=== PATIENT | male | born 1940 | race Caucasian/White ===

== ENCOUNTER → 2016-04-26 | Outpatient (CLI) | payer BC ==
[2016-04-26 09:50] LABS: BASO % 0.5 %; BASO ABS # 0.04 K/uL (0-0.2); COMPLETE YES; EOS % 1.4 %; HEMATOCRIT 39.6 % (42-52); IG% 0.2 %; LYMPH % 22.8 %; LYMPH ABS # 1.93 K/uL (1.2-3.4); MEAN CELL VOLUME 96.1 fL (80-100); MEAN CORPUSCULAR HGB CONC 34.3 g/dl (32-36); MEAN PLATELET VOLUME 10.3 fL (7.4-10.4); NEUT % 67.1 %; PLATELET COUNT 225 K/uL (130-400); RED BLOOD COUNT 4.12 M/uL (4.7-6.1); WHITE BLOOD COUNT 8.45 K/uL (4.8-10.8)
[2016-04-26 09:54] LABS: ALT/SGPT 20 U/L (12-78); BLOOD UREA NITROGEN 30 mg/dl (7-18); BUN/CREATININE RATIO 21.6 (10-20); CALCIUM 8.5 mg/dl (8.5-10.1); CARBON DIOXIDE 26 mmol/L (21-32); CHLORIDE 107 mmol/L (98-107); CHOLESTEROL 112 mg/dl (0-200); GLUCOSE 167 mg/dl (70-99); POTASSIUM 3.9 mmol/L (3.5-5.1); SODIUM 143 mmol/L (136-145); TRIGLYCERIDES 59 mg/dl (0-150); VERY LOW DENSITY LIPOPROT CALC 12 mg/dl
[2016-04-26 10:04] LABS: ALB/GLOB RATIO 0.9 (0.9-2); ALKALINE PHOSPHATASE 141 U/L (45-117); AST/SGOT 13 U/L (15-37); CHOLESTEROL/HDL RATIO 2.1; HDL CHOLESTEROL 54 mg/dl; LDL CHOLESTEROL CALCULATED 46 mg/dl; THYROID STIMULATING HORMONE 0.848 uIu/ml (0.300-4.500)
[2016-04-26 10:18] LABS: ESTIMATED AVERAGE GLUCOSE 140 mg/dl; HA1C FLAG Normal (Normal)
--- NOTE | 2016-05-01 07:16 | CODING QUERY MEDICAL NECESSITY ---
SUPPORTING DIAGNOSIS NEEDED A supporting diagnosis is required for the test/procedure performed on this patient in order for us to be reimbursed by the patient's insurance. Please provide a supporting diagnosis for the following test/procedure listed below next to the test name along with your signature. *If there is no additional diagnosis for this patient that would support the following test/procedure please document that below next to the test/procedure. Test(s)/Procedure(s) that require a supporting diagnosis: * VITAMIN D 25-HYDROXY DIAGNOSIS: * DOS: 04/26/16 Provider Signature: Date: Thank you Cayla Jonas Health Information Management Once completed, please kindly fax back to [phone] For questions please call [phone]
== END | disposition home or self-care (01) ==
LOC: C.LAB1850 08:34
PROVIDERS: ATTEND Internal Medicine
DX: D64.9 Anemia, unspecified (principal); E11.49 Type 2 diabetes mellitus with other diabetic neurological complication; R20.1 Hypoesthesia of skin; E78.5 Hyperlipidemia, unspecified; E55.9 Vitamin D deficiency, unspecified; F32.9 Major depressive disorder, single episode, unspecified

== ENCOUNTER → 2016-12-16 | Outpatient (CLI) | payer BC ==
[2016-12-16 13:11] LABS: ESTIMATED AVERAGE GLUCOSE 151 mg/dl; HA1C FLAG Normal (Normal)
== END | disposition home or self-care (01) ==
LOC: C.LAB 11:18
PROVIDERS: ATTEND Nurse Practitioner Family
DX: E11.29 Type 2 diabetes mellitus with other diabetic kidney complication (principal)

== ENCOUNTER → 2017-04-11 | Outpatient (CLI) | payer BC ==
[2017-04-11 13:00] LABS: HEMOGLOBIN A1C 7.3 % (4.5-5.6)
== END | disposition home or self-care (01) ==
LOC: C.LAB1850 09:53
PROVIDERS: ATTEND Nurse Practitioner Family
DX: E11.29 Type 2 diabetes mellitus with other diabetic kidney complication (principal)

== ENCOUNTER 2020-03-22 11:47 | Inpatient (IN) ==
[2020-03-22] MEDS ORDERED: SODIUM CHLORIDE 0.9% 500 ML IV SCH (12:45)
[2020-03-22] MEDS ORDERED: SODIUM CHLORIDE 0.9% 1000ML 1,000 ML IV SCH (12:45)
[2020-03-22 12:57] LABS: Basophils # (auto) 0.02 K/uL (0-0.2); Basophils % (auto) 0.1 %; Hematocrit (blood only) 45.2 % (42-52); Hemoglobin 14.8 g/dL (14.0-18.0); Immature Granulocytes % (auto) 0.5 %; Lymphocytes # (auto) 0.59 K/uL (1.2-3.4); Lymphocytes % (auto) 2.9 %; Mean Corpuscular Hgb Conc 32.7 g/dL (32-36); Mean Corpuscular Volume 100.9 fL (80-100); Mean Platelet Volume 11.1 fL (7.4-10.4); Monocytes # (auto) 1.47 K/uL (0.11-0.59); Monocytes % (auto) 7.3 %; Neutrophils # (auto) 17.98 K/uL (1.4-6.5); Neutrophils % (auto) 89.2 %; Platelet Count 161 K/uL (130-400); RDW Coefficient of Variation 15.3 % (11.5-14.5); Red Blood Count 4.48 M/uL (4.7-6.1); White Blood Count 20.16 K/uL (4.8-10.8)
--- NOTE | 2020-03-22 13:06 | XRay Report ---
SINGLE VIEW CHEST CLINICAL HISTORY: Generalized weakness. Change in mental status. FINDINGS: 2 AP, portable, upright chest radiographs are obtained. No prior studies are available for comparison at the time of dictation. The examination is degraded by portable technique and patient ro tation. The cardiomediastinal silhouette is unremarkable noting atherosclerotic calcification of the thoracic aorta. Emphysematous change is noted. Nonspecific interstitial thickening is likely chronic . Scarring/atelectasis is seen at the lung bases. No airspace consolidation or large pleural effusion is identified. Question a nodular opacity in the right midlung. No pneumothorax is seen. The skeleta l structures are osteopenic. The bony thorax is grossly intact. IMPRESSION: 1. Emphysematous change with no acute cardiopulmonary abnormality identified. 2. Question a nodular opacity in the right midlung. Correlation with a chest CT is recommended for fu rther assessment. ACT 112: Negative or not required by law. Electronically signed by: Luther Berger M.D. 03/22/2020 1:04 PM
[2020-03-22 13:12] LABS: Alanine Aminotransferase 35 U/L (12-78); Albumin Level 2.9 gm/dl (3.4-5.0); Aspartate Aminotransferase 18 U/L (15-37); BUN Creatinine Ratio 43.9 (10-20); Blood Urea Nitrogen 65 mg/dl (7-18); Calcium 8.7 mg/dl (8.5-10.1); Carbon Dioxide 27 mmol/L (21-32); Chloride 106 mmol/L (98-107); Creatinine Clr Calc Pharmacy 31.1 ml/min; Est GFR (African American) 51.4; Est GFR (Non-African American) 44.3; Glucose 359 mg/dl (70-99); Magnesium 2.3 mg/dl (1.8-2.4); Potassium 4.6 mmol/L (3.5-5.1); Sodium 142 mmol/L (136-145)
[2020-03-22 13:18] LABS: Albumin Globulin Ratio 0.7 (0.9-2); Alkaline Phosphatase 137 U/L (45-117); Bilirubin,Total 0.7 mg/dl (0.2-1); Total Protein 6.9 gm/dl (6.4-8.2); Troponin I < 0.015 ng/ml (0-0.045)
[2020-03-22 13:40] LABS: Thyroid Stimulating Hormone 0.781 uIu/ml (0.300-4.500)
--- NOTE | 2020-03-22 13:40 | CT Scan Report ---
CT head/brain wo con CLINICAL HISTORY: 79 years-old Male with ams. Acutely altered mental status TECHNIQUE: Multiple axial CT images of the head were obtained without contrast. A dose lowering tech nique was utilized adhering to the principles of ALARA. CT DOSE: 614.27 mGy.cm COMPARISON: None. FINDINGS: No acute intracranial hemorrhage, midline shift, intracranial mass, hydrocephalus, territorial ischem ia or abnormal extra-axial collection. Age-related involutional changes with ex vacuo ventriculomegal y. Patchy white matter hypodensity suggestive chronic microvascular ischemic disease. Cerebral vascul ar calcifications. Mild encephalomalacia of the left temporal lobe. The calvarium is intact. Prior bilateral lens repair. The paranasal sinuses, mastoid air cells, and m iddle ear cavities are clear. IMPRESSION: No acute intracranial abnormality. ACT 112: Negative or not required by law. The above report was generated using voice recognition software. It may contain grammatical, syntax o r spelling errors. Electronically signed by: Moises Lemus M.D. 03/22/2020 1:39 PM
[2020-03-22] MEDS ORDERED: CEFEPIME 2,000 MG/20 ML VIAL IV STA (13:48)
[2020-03-22 13:55] LABS: Beta-Hydroxybutyrate 6.25 mg/dl (0.2-2.81)
--- NOTE | 2020-03-22 15:00 | Emergency Department Note ---
Impression & Plan AMS (altered mental status), Acute UTI (urinary tract infection), Acute dehydration, Hyperglycemia, Abnormal weight loss ED Provider Note INFORMANT: Patient, family ED PROVIDER(S): Amol Redman MD CHIEF COMPLAINT: Altered mental status PLAN: Disposition: Admitted Condition: Good MEDICAL DECISION MAKING: Patient presented emerged department due to some alteration mental status. His providers at the clinic were concerned. His family noted that he was not his normal self. He was having trouble recognizing family members. The patient was evaluated. An IV was established. He had a significant leukocytosis and d ehydration on chemistry panel. Urinalysis was obtained was very concerning for infection. Chest x-ray did reveal findings concerning for mass versus infiltrate. Patient was cultured. He was given IV cefepime and hydrated. He underwent CT imaging of the head and chest. Findings in the chest are concerning for mass. No acute findings noted in the head. I did discuss the possibility with cancer with the patient and his family as the patient has had a significant weight loss recently. The patient was being difficult about staying in the hospital. The patient's daughter, Sowmya who is power of assistant city attorney did talk with the patient to convince him to stay and she is in agreement with treatment as he is confused. Triage Nursing notes reviewed and agree them. Additional history obtained from family Prior medical records reviewed. EMR review indicates the patient has had a 15 pound weight loss in the last 10 months. Vital Signs: reviewed and remarkable for borderline tachycardia Differential diagnosis: Infection, hypoglycemia, electrolyte abnormalities, overdose, toxicologic, cardiac sources, intracerebral event, neurologic, trauma, as well as other pathologies. Diagnostics interpreted by me: ECG: Twelve-lead ECG reveals a normal sinus rhythm at 92 bpm. Septal Q waves. No ST elevation or depression. No PACs or PVCs. Normal axis. Cardiac Monitoring: Cardiac monitoring ordered by me: The patient was placed on continuous cardiac monitoring and observed. It revealed a normal sinus rhythm at 98 beats per minute without ectopy or evidence of dysrhythmia. Imaging studies: Chest x-ray concerning for a right middle lobe mass versus infiltrate. CT recommended. Head CT: A noncontrast CT scan of the head was performed and was negative for tumor, fracture, intracranial hemorrhage, or other acute pathology. Consultation(s): Admit to hospitalist service, Dr. Terrell Magaña HPI: The patient is a 79 year old male who presents to the Emergency Room from the diabetes clinic due to altered mental status. The patient was at an appointment and seemed to be confused per the staff. EMS was summoned. Initially the patient was refusing. The patient was then brought to the ER after family was contacted. He denies any physical complaints or recent illnesses. He is not been checking his blood sugar. He is oriented only to person and place. He denies feeling ill. Pt denies LOC, headache, fevers, chills, diaphoresis, visual changes, neck pain, chest pain, breathing difficulties, nausea, vomiting, abdominal pain, back pain, melena, hematochezia, urinary symptoms, numbness, weakness, lymphadenopathy, rash, or other complaints. ROS: See above HPI for pertinent positives & negatives. A total of 10 systems reviewed and were otherwise negative. PAST MEDICAL HISTORY:See Below , diabetes PAST SURGICAL HISTORY:See Below, FAMILY HISTORY:See Below SOCIAL HISTORY:See Below, lives alone HOME MEDICATIONS:See Below ALLERGIES:See Below VITALS:See Below PHYSICAL EXAMINATION: GENERAL: Awake, alert, gaunt-appearing, in no distress HENT: Normocephalic, atraumatic. Oropharynx unremarkable. EYES: Normal conjunctiva. Sclera non-icteric. NECK: Inspection normal. Non-tender. Supple. No nuchal rigidity. FROM. No masses. RESPIRATORY: Clear to auscultation. No wheezes. No rales. Normal respiratory e ffort. CARDIAC: Normal rate. Normal rhythm. No murmurs. No rubs. Extremities warm and well perfused. Pulses equal. No JVD. GI: Soft, non-distended. No tenderness to palpation. No rebound or guarding. No masses. RECTAL: Deferred. MUSCULOSKELETAL: Atraumatic. Generalized muscular atrophy. Chest examination reveals no tenderness. The back is symmetrical on inspection without obvious abnormality. There is no CVA tenderness to palpation. No joint edema. LOWER EXTREMITIES: Calves are equal size bilaterally and non-tender. No edema. No discoloration. NEURO: Oriented to person and place. Mildly altered sensorium. No focal sensory or motor deficits noted. SKIN: No rash or jaundice noted. Amol Redman MD Past Med/Surg History Medical History (Updated 03/22/20 @ 15:59 by Terrell Magaña MD) Diabetes type 2, uncontrolled Surgical History S/P cataract surgery Family History Other No significant family history Social History Smoking Status: Current every day smoker Hx Alcohol Use: No Hx Substance Use: No Preferred Language: Tongan Communication Ability: Effective Visual Impairment: No Limitations Hearing Ability: Normal marital status: / current occupational status: employed Feels Safe at Home: Yes Seatbelt Use: always Allergies Allergies Allergy/AdvReac Type Severity Reaction Status Date / Time No Known Allergies Allergy Verified 03/22/20 14:39 Home Meds Home Medications Medication Instructions Recorded Confirmed insulin glargine [Lantus Solostar See Rx Instructions .ROUTE .COMPLEX 03/22/20 03/22/20 U-100 Insulin] Previous Rx's Medication Instructions Recorded aspirin 81 mg tablet,delayed 81 mg PO DAILY #30 tab 12/08/18 release cholecalciferol (vitamin D3) 25 1,000 units PO DAILY #30 cap 12/08/18 mcg (1,000 unit) capsule insulin aspart U-100 100 unit/mL 3 units SQ .COMPLEX #15 ml 12/14/18 (3 mL) subcutaneous pen insulin aspart U-100 100 unit/mL 30 units SQ DAILY 90 Days #27 ml 07/02/19 (3 mL) subcutaneous pen simvastatin 40 mg tablet 40 mg PO QPM #90 tab 08/22/19 lisinopril 10 1 tab PO DAILY #90 tab 11/12/19 mg-hydrochlorothiazide 12.5 mg tablet Results & Data (ED) Vital Signs Vital Signs - 24 hr 03/22/20 11:52 03/22/20 12:01 03/22/20 12:22 Pulse Rate 93 H 99 H 94 H Pulse Rate from SpO2 Sensor Respiratory Rate 12 20 13 Blood Pressure 106/76 106/76 Blood Pressure Mean 91 86 Blood Pressure Position Lying Pulse Oximetry 97 Oxygen Delivery Method Room Air Sepsis Recent Fever Within 48 Hours No Sepsis New/Unexplained Change in Mental Status No Sepsis Action Taken by Nursing No Action Required 03/22/20 12:30 03/22/20 12:40 03/22/20 12:50 Pulse Rate 95 H 89 91 H Pulse Rate from SpO2 Sensor 92 H Respiratory Rate 12 17 11 L Blood Pressure Blood Pressure Mean Blood Pressure Position Pulse Oximetry 95 Oxygen Delivery Method Sepsis Recent Fever Within 48 Hours Sepsis New/Unexplained Change in Mental Status Sepsis Action Taken by Nursing 03/22/20 13:00 03/22/20 13:10 03/22/20 13:39 Pulse Rate 90 86 84 Pulse Rate from SpO2 Sensor 90 86 Respiratory Rate 12 15 10 L Blood Pressure 138/77 Blood Pressure Mean 91 Blood Pressure Position Pulse Oximetry 95 96 Oxygen Delivery Method Sepsis Recent Fever Within 48 Hours Sepsis New/Unexplained Change in Mental Status Sepsis Action Taken by Nursing 03/22/20 13:40 03/22/20 13:50 03/22/20 14:00 Pulse Rate 81 82 81 Pulse Rate from SpO2 Sensor 82 83 82 Respiratory Rate 14 13 20 Blood Pressure Blood Pressure Mean Blood Pressure Position Pulse Oximetry 97 96 97 Oxygen Delivery Method Sepsis Recent Fever Within 48 Hours Sepsis New/Unexplained Change in Mental Status Sepsis Action Taken by Nursing 03/22/20 14:10 03/22/20 14:20 03/22/20 14:30 Pulse Rate 84 80 83 Pulse Rate from SpO2 Sensor 83 80 83 Respiratory Rate 20 13 11 L Blood Pressure Blood Pressure Mean Blood Pressure Position Pulse Oximetry 95 98 96 Oxygen Delivery Method Sepsis Recent Fever Within 48 Hours Sepsis New/Unexplained Change in Mental Status Sepsis Action Taken by Nursing 03/22/20 14:40 03/22/20 14:50 03/22/20 15:00 Pulse Rate 83 83 80 Pulse Rate from SpO2 Sensor 79 83 80 Respiratory Rate 11 L 10 L 22 Blood Pressure Blood Pressure Mean Blood Pressure Position Pulse Oximetry 96 94 96 Oxygen Delivery Method Sepsis Recent Fever Within 48 Hours Sepsis New/Unexplained Change in Mental Status Sepsis Action Taken by Nursing 03/22/20 15:10 03/22/20 15:20 03/22/20 15:30 Pulse Rate 95 H 87 86 Pulse Rate from SpO2 Sensor 87 Respiratory Rate 10 L 15 13 Blood Pressure Blood Pressure Mean 72 Blood Pressure Position Pulse Oximetry 93 Oxygen Delivery Method Sepsis Recent Fever Within 48 Hours Sepsis New/Unexplained Change in Mental Status Sepsis Action Taken by Nursing 03/22/20 15:31 03/22/20 15:36 03/22/20 17:01 Pulse Rate 86 102 H Pulse Rate from SpO2 Sensor Respiratory Rate 12 7 L 19 Blood Pressure 103/67 133/84 Blood Pressure Mean 69 119 Blood Pressure Position Pulse Oximetry Oxygen Delivery Method Sepsis Recent Fever Within 48 Hours Sepsis New/Unexplained Change in Mental Status Sepsis Action Taken by Nursing Laboratory Data Result diagrams: 03/22/20 12:00 03/22/20 12:00 Lab Results 03/22/20 03/22/20 03/22/20 Range/Units 12:00 12:00 15:16 WBC 20.16 H (4.8-10.8) K/uL RBC 4.48 L (4.7-6.1) M/uL Hgb 14.8 (14.0-18.0) g/dL Hct 45.2 (42-52) % MCV 100.9 H (80-100) fL MCH 33.0 (25-34) pg MCHC 32.7 (32-36) g/dL RDW Std Deviation 56.0 H (36.4-46.3) fL RDW Coeff of Helio 15.3 H (11.5-14.5) % Plt Count 161 (130-400) K/uL MPV 11.1 H (7.4-10.4) fL Immature Gran % (Auto) 0.5 % Neut % (Auto) 89.2 % Lymph % (Auto) 2.9 % [place] % (Auto) 7.3 % Eos % (Auto) 0.0 % Baso % (Auto) 0.1 % Neut # (Auto) 17.98 H (1.4-6.5) K/uL Lymph # (Auto) 0.59 L (1.2-3.4) K/uL [place] # (Auto) 1.47 H (0.11-0.59) K/uL Eos # (Auto) 0.00 (0-0.5) K/uL Baso # (Auto) 0.02 (0-0.2) K/uL Immature Gran # (Auto) 0.10 H (0.00-0.02) K/uL Sodium 142 (136-145) mmol/L Potassium 4.6 (3.5-5.1) mmol/L Chloride 106 (98-107) mmol/L Carbon Dioxide 27 (21-32) mmol/L Anion Gap 9.0 (3-11) BUN 65 H (7-18) mg/dl Creatinine 1.49 H (0.6-1.4) mg/dl Est Cr Clr Drug Dosing 31.1 ml/min Est GFR ( Amer) 51.4 Est GFR (Non-Af Amer) 44.3 BUN/Creatinine Ratio 43.9 H (10-20) Glucose 359 H* (70-99) mg/dl Calcium 8.7 (8.5-10.1) mg/dl Magnesium 2.3 (1.8-2.4) mg/dl Total Bilirubin 0.7 (0.2-1) mg/dl AST 18 (15-37) U/L ALT 35 (12-78) U/L Alkaline Phosphatase 137 H (45-117) U/L Troponin I < 0.015 (0-0.045) ng/ml Total Protein 6.9 (6.4-8.2) gm/dl Albumin 2.9 L (3.4-5.0) gm/dl Globulin 4.0 (2.5-4.0) gm/dl Albumin/Globulin Ratio 0.7 L (0.9-2) Beta-Hydroxybutyric Acd 6.25 H (0.2-2.81) mg/dl TSH 0.781 (0.300-4.500) uIu/ml Urine Color Dark Yellow Urine Appearance Cloudy A (Clear) Urine pH 5.0 (4.5-7.5) Ur Specific [place] 1.028 (1.000-1.030) Urine Protein 1+ H (Negative) Urine Glucose (UA) 3+ H (Negative) Urine Ketones Negative (Negative) Urine Blood 2+ H (Negative) Urine Nitrite Positive A (Negative) Urine Bilirubin Negative (Negative) Urine Urobilinogen Negative (Negative) Ur Leukocyte Esterase 1+ H (Negative) Urine WBC (Auto) >30 H (0-5) /hpf Urine RBC (Auto) 0-4 (0-4) /hpf U Hyaline Cast (Auto) 5-10 H (0-5) /lpf U Epithel Cells (Auto) 5-10 H (0-5) /lpf Urine Bacteria (Auto) 4+ H (Negative) SARS-CoV-2 Ag (Rapid) (Negative) 03/22/20 Range/Units Unknown WBC (4.8-10.8) K/uL RBC (4.7-6.1) M/uL Hgb (14.0-18.0) g/dL Hct (42-52) % MCV (80-100) fL MCH (25-34) pg MCHC (32-36) g/dL RDW Std Deviation (36.4-46.3) fL RDW Coeff of Helio (11.5-14.5) % Plt Count (130-400) K/uL MPV (7.4-10.4) fL Immature Gran % (Auto) % Neut % (Auto) % Lymph % (Auto) % [place] % (Auto) % Eos % (Auto) % Baso % (Auto) % Neut # (Auto) (1.4-6.5) K/uL Lymph # (Auto) (1.2-3.4) K/uL [place] # (Auto) (0.11-0.59) K/uL Eos # (Auto) (0-0.5) K/uL Baso # (Auto) (0-0.2) K/uL Immature Gran # (Auto) (0.00-0.02) K/uL Sodium (136-145) mmol/L Potassium (3.5-5.1) mmol/L Chloride (98-107) mmol/L Carbon Dioxide (21-32) mmol/L Anion Gap (3-11) BUN (7-18) mg/dl Creatinine (0.6-1.4) mg/dl Est Cr Clr Drug Dosing ml/min Est GFR ( Amer) Est GFR (Non-Af Amer) BUN/Creatinine Ratio (10-20) Glucose (70-99) mg/dl Calcium (8.5-10.1) mg/dl Magnesium (1.8-2.4) mg/dl Total Bilirubin (0.2-1) mg/dl AST (15-37) U/L ALT (12-78) U/L Alkaline Phosphatase (45-117) U/L Troponin I (0-0.045) ng/ml Total Protein (6.4-8.2) gm/dl Albumin (3.4-5.0) gm/dl Globulin (2.5-4.0) gm/dl Albumin/Globulin Ratio (0.9-2) Beta-Hydroxybutyric Acd (0.2-2.81) mg/dl TSH (0.300-4.500) uIu/ml Urine Color Urine Appearance (Clear) Urine pH (4.5-7.5) Ur Specific [place] (1.000-1.030) Urine Protein (Negative) Urine Glucose (UA) (Negative) Urine Ketones (Negative) Urine Blood (Negative) Urine Nitrite (Negative) Urine Bilirubin (Negative) Urine Urobilinogen (Negative) Ur Leukocyte Esterase (Negative) Urine WBC (Auto) (0-5) /hpf Urine RBC (Auto) (0-4) /hpf U Hyaline Cast (Auto) (0-5) /lpf U Epithel Cells (Auto) (0-5) /lpf Urine Bacteria (Auto) (Negative) SARS-CoV-2 Ag (Rapid) Negative (Negative) Administered Medications Sodium Chloride (Nss 1000ml) 1,000 mls @ 125 mls/hr IV .Q8H ABNER Stop: 03/22/20 20:44 Last Admin: 03/22/20 12:54 Dose: 125 mls/hr Documented by: [id number] Discontinued Medications Sodium Chloride (Nss) 500 mls @ 999 mls/hr IV .Q31M ABNER Stop: 03/22/20 13:15 Last Infusion: 03/22/20 14:21 Dose: 0 mls/hr Documented by: [id number] Admin: 03/22/20 12:54 Dose: 999 mls/hr Documented by: [id number] Cefepime HCl (Maxipime) 2,000 mg in 20 mls @ 5 mls/min IV NOW STA; Protocol Stop: 03/22/20 13:51 Last Admin: 03/22/20 14:13 Dose: 5 mls/min Documented by: [id number] Ceftriaxone Sodium (Rocephin) 1,000 mg in 50 mls @ 100 mls/hr IV ONE STA Stop: 03/22/20 17:30 Last Admin: 03/22/20 17:21 Dose: 100 mls/hr Documented by: [id number] Discharge Plan Visit Data Chief Complaint: Altered Mental Status ED Provider: Amol Redman Discharge Problem: AMS (altered mental status), Acute UTI (urinary tract infection), Acute d ehydration, Hyperglycemia, Abnormal weight loss Forms Stand Alone Forms: [employer] Prescriptions Prescriptions: No Action aspirin [Adult Aspirin Regimen] 81 mg tablet,delayed release (DR/EC) 81 mg PO DAILY Qty: 30 RF: 2 cholecalciferol (vitamin D3) 1,000 unit capsule 1,000 units PO DAILY Qty: 30 RF: 0 Novolog Flexpen U-100 Insulin 100 unit/mL (3 mL) insulin pen 3 units SQ .COMPLEX Qty: 15 RF: 0 insulin aspart U-100 [Novolog Flexpen U-100 Insulin] 100 unit/mL (3 mL) insulin pen 30 units SQ DAILY 90 Days Qty: 27 RF: 3 simvastatin 40 mg tablet 40 mg PO QPM Qty: 90 RF: 3 lisinopril-hydrochlorothiazide 10-12.5 mg tablet 1 tab PO DAILY Qty: 90 RF: 3 Lantus Solostar U-100 Insulin 100 unit/mL (3 mL) insulin pen See Rx Instructions .ROUTE .COMPLEX RF: 0
--- NOTE | 2020-03-22 15:00 | Electrocardiogram Report ---
Test Reason : Blood Pressure : / mmHG Vent. Rate : 092 BPM Atrial Rate : 092 BPM P-R Int : 186 ms QRS Dur : 084 ms QT Int : 374 ms P-R-T Axes : 087 089 086 degrees QTc Int : 462 ms Poor data quality, interpretation may be adversely affected Normal sinus rhythm Nonspecific ST abnormality Abnormal ECG No previous ECGs available Confirmed by Ervin Gifford [id number] on 03/22/2020 2:59:47 PM Referred By: REFERRED SELF Confirmed By:Enrique Gifford
--- NOTE | 2020-03-22 15:21 | History & Physical Report ---
Date of Service March 22, 2020 Assessment & Plan (1) AMS (altered mental status): Altered mentation- May be secondary to sepsis due to UTI. May be delirium on top of dementia, as patient has had a history of forgetfulness CT of head was negative for acute findings Follow improvement as we treat UTI Present on Admission?: Yes (2) Acute UTI (urinary tract infection): Follow urine culture and sensitivity Empiric ceftriaxone 1 g IV daily Present on Admission?: Yes (3) Acute kidney injury: Creatinine 1.49 upon admission, with baseline 1.20. IV fluids as noted above. Recheck BMP in AM. Present on Admission?: Yes (4) Acute dehydration: Received 500 cc normal saline in ED. Continue rehydration with IV fluids, normal saline at 80 mils per hour Hold lisinopril/HCTZ Present on Admission?: Yes (5) Hyperglycemia: Glucose 359 upon admission. 10 units subcu at bedtime Hold Metformin Placed on Accu-Cheks before meals and at bedtime with NovoLog coverage per scale continue Lantus insulin Present on Admission?: Yes (6) Abnormal weight loss: CT of chest to be ordered to follow-up right mid lung nodule seen on chest x-ray Present on Admission?: Yes (7) Diabetes type 2, uncontrolled: Check a hemoglobin A1c, otherwise as noted above Present on Admission?: Yes (8) Tobacco use: cessation counseling Present on Admission?: Yes (9) Forgetfulness: History of Present Illness Chief Complaint: The patient presents to the emergency department due to altered mental status. Primary Care Provider: NO PCP The patient is a 71-year-old male with a past medical history including uncontrolled diabetes mellitus type 2, anemia, depression, diabetes mellitus with neurologic manifestations, diabetes mellitus with renal manifestations, diabetic retinopathy, dyslipidemia, hypertension, memory loss, nicotine dependence, vascular dementia and vitamin D deficiency. The patient had been to an office appointment, was found to be confused by staff there, EMS was called, and then brought the patient to the ER after family was contacted. The patient himself does not have any complaints as far as why he is in the hospital. Family notes that the patient had gotten lost last week. Allergies Allergy/AdvReac Type Severity Reaction Status Date / Time No Known Allergies Allergy Verified 03/22/20 14:39 Home Medications Medication Instructions Recorded Confirmed Type aspirin 81 mg tablet,delayed 81 mg PO DAILY #30 tab 12/08/18 03/22/20 Rx release cholecalciferol (vitamin D3) 25 1,000 units PO DAILY #30 cap 12/08/18 03/22/20 Rx mcg (1,000 unit) capsule insulin aspart U-100 100 unit/mL 3 units SQ .COMPLEX #15 ml 12/14/18 03/22/20 Rx (3 mL) subcutaneous pen insulin aspart U-100 100 unit/mL 30 units SQ DAILY 90 Days #27 ml 07/02/19 03/22/20 Rx (3 mL) subcutaneous pen simvastatin 40 mg tablet 40 mg PO QPM #90 tab 08/22/19 03/22/20 Rx lisinopril 10 1 tab PO DAILY #90 tab 11/12/19 03/22/20 Rx mg-hydrochlorothiazide 12.5 mg tablet insulin glargine [Lantus Solostar See Rx Instructions .ROUTE .COMPLEX 03/22/20 03/22/20 History U-100 Insulin] Past Med/Surg History Medical History (Updated 03/22/20 @ 15:59 by Terrell Magaña MD) Diabetes type 2, uncontrolled Surgical History S/P cataract surgery Family History Other No significant family history Social History Smoking Status: Current every day smoker Hx Alcohol Use: No Hx Substance Use: No Preferred Language: Congolese Communication Ability: Effective Visual Impairment: No Limitations Hearing Ability: Normal marital status: / current occupational status: employed Feels Safe at Home: Yes Seatbelt Use: always Review of Systems Review of Systems: Unobtainable due to cognitive status Physical Exam Physical Exam: The patient is awake, alert and oriented 2, looks emaciated, normocephalic and atraumatic, lying in bed and in no acute distress. HEENT--PERRL, EOMI, mucous membranes and oropharynx dry. Neck--supple. No JVD. No bruits. Thyroid normal, trachea midline, no adenopathy. Heart--normal S1 and S2. No murmurs, rubs or gallops. Lungs--clear bilaterally but diminished, no respiratory distress, no accessory muscle use. Abdomen--normal bowel sounds and soft. Nontender. Nondistended, no hernias or masses, no organomegaly. Extremities--no cyanosis or clubbing. No edema. Dermatologic--skin is dry. Neurologic--cranial nerves II through XII grossly intact. Rheumatologic--normal range of motion. Psychiatric--normal affect. Results & Data Results & Data ([facility]) Vital Signs (Past 12 Hours) Vital Signs Pulse Resp BP Pulse Ox 03/22/20 12:50 91 H 11 L 95 03/22/20 12:40 89 17 03/22/20 12:30 95 H 12 03/22/20 12:22 94 H 13 03/22/20 12:01 99 H 20 106/76 97 03/22/20 11:52 93 H 12 106/76 Laboratory Results Laboratory Results WBC 20.16 K/uL (4.8-10.8) H 03/22/20 12:00 RBC 4.48 M/uL (4.7-6.1) L 03/22/20 12:00 Hgb 14.8 g/dL (14.0-18.0) 03/22/20 12:00 Hct 45.2 % (42-52) 03/22/20 12:00 MCV 100.9 fL (80-100) H 03/22/20 12:00 MCH 33.0 pg (25-34) 03/22/20 12:00 MCHC 32.7 g/dL (32-36) 03/22/20 12:00 RDW Std Deviation 56.0 fL (36.4-46.3) H 03/22/20 12:00 RDW Coeff of Helio 15.3 % (11.5-14.5) H 03/22/20 12:00 Plt Count 161 K/uL (130-400) 03/22/20 12:00 MPV 11.1 fL (7.4-10.4) H 03/22/20 12:00 Immature Gran % (Auto) 0.5 % 03/22/20 12:00 Neut % (Auto) 89.2 % 03/22/20 12:00 Lymph % (Auto) 2.9 % 03/22/20 12:00 Ida % (Auto) 7.3 % 03/22/20 12:00 Eos % (Auto) 0.0 % 03/22/20 12:00 Baso % (Auto) 0.1 % 03/22/20 12:00 Neut # (Auto) 17.98 K/uL (1.4-6.5) H 03/22/20 12:00 Lymph # (Auto) 0.59 K/uL (1.2-3.4) L 03/22/20 12:00 Ida # (Auto) 1.47 K/uL (0.11-0.59) H 03/22/20 12:00 Eos # (Auto) 0.00 K/uL (0-0.5) 03/22/20 12:00 Baso # (Auto) 0.02 K/uL (0-0.2) 03/22/20 12:00 Immature Gran # (Auto) 0.10 K/uL (0.00-0.02) H 03/22/20 12:00 Sodium 142 mmol/L (136-145) 03/22/20 12:00 Potassium 4.6 mmol/L (3.5-5.1) 03/22/20 12:00 Chloride 106 mmol/L (98-107) 03/22/20 12:00 Carbon Dioxide 27 mmol/L (21-32) 03/22/20 12:00 Anion Gap 9.0 (3-11) 03/22/20 12:00 BUN 65 mg/dl (7-18) H 03/22/20 12:00 Creatinine 1.49 mg/dl (0.6-1.4) H 03/22/20 12:00 Est Cr Clr Drug Dosing 31.1 ml/min 03/22/20 12:00 Est GFR ( Amer) 51.4 03/22/20 12:00 Est GFR (Non-Af Amer) 44.3 03/22/20 12:00 BUN/Creatinine Ratio 43.9 (10-20) H 03/22/20 12:00 Glucose 359 mg/dl (70-99) H* 03/22/20 12:00 Calcium 8.7 mg/dl (8.5-10.1) 03/22/20 12:00 Magnesium 2.3 mg/dl (1.8-2.4) 03/22/20 12:00 Total Bilirubin 0.7 mg/dl (0.2-1) 03/22/20 12:00 AST 18 U/L (15-37) 03/22/20 12:00 ALT 35 U/L (12-78) 03/22/20 12:00 Alkaline Phosphatase 137 U/L (45-117) H 03/22/20 12:00 Troponin I < 0.015 ng/ml (0-0.045) 03/22/20 12:00 Total Protein 6.9 gm/dl (6.4-8.2) 03/22/20 12:00 Albumin 2.9 gm/dl (3.4-5.0) L 03/22/20 12:00 Globulin 4.0 gm/dl (2.5-4.0) 03/22/20 12:00 Albumin/Globulin Ratio 0.7 (0.9-2) L 03/22/20 12:00 Beta-Hydroxybutyric Acd 6.25 mg/dl (0.2-2.81) H 03/22/20 12:00 TSH 0.781 uIu/ml (0.300-4.500) 03/22/20 12:00 Urine Color Dark Yellow 03/22/20 15:16 Urine Appearance Cloudy (Clear) A 03/22/20 15:16 Urine pH 5.0 (4.5-7.5) 03/22/20 15:16 Ur Specific [place] 1.028 (1.000-1.030) 03/22/20 15:16 Urine Protein 1+ (Negative) H 03/22/20 15:16 Urine Glucose (UA) 3+ (Negative) H 03/22/20 15:16 Urine Ketones Negative (Negative) 03/22/20 15:16 Urine Blood 2+ (Negative) H 03/22/20 15:16 Urine Nitrite Positive (Negative) A 03/22/20 15:16 Urine Bilirubin Negative (Negative) 03/22/20 15:16 Urine Urobilinogen Negative (Negative) 03/22/20 15:16 Ur Leukocyte Esterase 1+ (Negative) H 03/22/20 15:16 Urine WBC (Auto) >30 /hpf (0-5) H 03/22/20 15:16 Urine RBC (Auto) 0-4 /hpf (0-4) 03/22/20 15:16 U Hyaline Cast (Auto) 5-10 /lpf (0-5) H 03/22/20 15:16 U Epithel Cells (Auto) 5-10 /lpf (0-5) H 03/22/20 15:16 Urine Bacteria (Auto) 4+ (Negative) H 03/22/20 15:16 SARS-CoV-2 Ag (Rapid) Negative (Negative) 03/22/20 Unknown Diagnostic Findings [facility], [id number] XRay Report Patient: MELONY MORENO EAdmit Date: 03/22/20MR#: [id number]: [address] RDAcct ID:[id number]: Date: 1940[facility] Zip: [place] [id number]: 79Location: EDSex: MRoom/Bed:Att Phy:Diagnosis: AMSPri Phy: PCP,NOService Date: 03/22/20Fa Phy:Interpreting Phy: Luther Berger MDAdmit Phy: Ordering Phy: Amol Redman MD cc: ~ SINGLE VIEW CHEST CLINICAL HISTORY: Generalized weakness. Change in mental status. FINDINGS: 2 AP, portable, upright chest radiographs are obtained. No prior studies are available for comparison at the time of dictation. The examination is degraded by portable technique and patient rotation. The cardiomediastinal silhouette is unremarkable noting atherosclerotic calcification of the thoracic aorta. Emphysematous change is noted. Nonspecific interstitial thickening is likely chronic. Scarring/atelectasis is seen at the lung bases. No airspace consolidation or large pleural effusion is identified. Question a nodular opacity in the right midlung. No pneumothorax is seen. The skeletal structures are osteopenic. The bony thorax is grossly intact. IMPRESSION: 1. Emphysematous change with no acute cardiopulmonary abnormality identified. 2. Question a nodular opacity in the right midlung. Correlation with a chest CT is recommended for further assessment. ACT 112: Negative or not required by law. Electronically signed by: Luther Berger M.D. 03/22/2020 1:04 PM Dictated: 03/22/20 1302Transcribed: 03/22/20 1302 [facility], [phone] CT Scan Report Patient: MELONY MORENO Date: 03/22/20MR#: [id number]: [address] RDAcct ID:[id number]: [facility] Zip[facility] [place], [place] [address]Pbk: [birth year]Location: EDSex: MRoom/Bed:Att Phy:Diagnosis: AMSPri Phy: PCP,NOService Date: 03/22/20Fam Phy:Interpreting Phy: Rodrick LemusAdmit Phy: Ordering Phy: Amol Redman MD cc: ~ CT head/brain wo con CLINICAL HISTORY: 79 years-old Male with ams. Acutely altered mental status TECHNIQUE: Multiple axial CT images of the head were obtained without contrast. A dose lowering technique was utilized adhering to the principles of ALARA. CT DOSE: 614.27 mGy.cm COMPARISON: None. FINDINGS: No acute intracranial hemorrhage, midline shift, intracranial mass, hydrocephalus, territorial ischemia or abnormal extra-axial collection. Age-rela hali involutional changes with ex vacuo ventriculomegaly. Patchy white matter hypodensity suggestive chronic microvascular ischemic disease. Cerebral vascular calcifications. Mild encephalomalacia of the left temporal lobe. The calvarium is intact. Prior bilateral lens repair. The paranasal sinuses, mastoid air cells, and middle ear cavities are clear. IMPRESSION: No acute intracranial abnormality. ACT 112: Negative or not required by law. The above report was generated using voice recognition software. It may contain grammatical, syntax or spelling errors. Electronically signed by: Moises Lemus M.D. 03/22/2020 1:39 PM Dictated: 03/22/20 1336Transcribed: 03/22/20 133 Code Status & VTE Plan Code Status Full code VTE Prophylaxis Plan VTE Prophylaxis will be ordered: Yes PG Care Time/CCT Total # of Minutes Spent Total Time Spent with Patient: Total time spent is greater than 50% in coordination of care (as documented) at patient's floor/unit and/or counseling patient: Coding Level of Care Code 31706 Initial Inpt Care Lvl 3 Diagnoses AMS (altered mental status) R41.82 Acute UTI (urinary tract infection) N39.0 Acute kidney injury N17.9 Acute dehydration E86.0 Hyperglycemia R73.9 Abnormal weight loss R63.4 Diabetes type 2, uncontrolled E11.65 Tobacco use Z72.0 Forgetfulness R68.89
[2020-03-22 15:27] LABS: Appearance Urine Cloudy (Clear); Bacteria Urine Automated 4+ (Negative); Bilirubin Urine Negative (Negative); Blood Urine 2+ (Negative); Color Urine Dark Yellow; Glucose Urine UA 3+ (Negative); Ketones Urine Negative (Negative); Leukocyte Esterase Urine 1+ (Negative); Nitrite Urine Positive (Negative); Protein Urine 1+ (Negative); RBC Urine Automated 0-4 /hpf (0-4); Specific Gravity Urine 1.028 (1.000-1.030); Urobilinogen Urine Negative (Negative); WBC Urine Automated >30 /hpf (0-5)
--- NOTE | 2020-03-22 16:07 | CT Scan Report ---
CT chest wo con CT DOSE: 213.96 mGy.cm HISTORY: eval right middle lobe mass/infiltrate TECHNIQUE: Multiaxial CT images of the chest were performed without contrast. A dose lowering techni que was utilized adhering to the principles of ALARA. COMPARISON: Chest x-ray 03/22/2020. FINDINGS: Severe emphysema. No pneumothorax. No pleural effusions. The lungs are hyperexpanded. No me diastinal or hilar lymphadenopathy. Mild calcified plaque within the normal caliber thoracic aorta. T here is severe coronary artery calcifications. The heart is normal in size. Limited views of the uppe r abdomen demonstrate a normal liver and multiple splenic calcified granulomas. Normal esophagus. Izaiah cified right hilar lymph nodes are noted. There is a spiculated 1.7 cm nodule within the right upper lobe on image 122. This is highly suspicious for a primary bronchogenic malignancy. There is a predom inantly linear focal density within the lateral segment of the right middle lobe which measures 4.7 x 1.2 cm. This demonstrates areas of irregularity/spiculation and a small nodular component along the inferior aspect measuring 8 mm best seen image 215. There is associated traction bronchiectasis. Ther efore, this could represent scarring. However, an underlying pulmonary lesion cannot be excluded. The re is a 1.4 cm cystic nodule with a thin surrounding rim within the right lower lobe on image 208. A developing low-grade adenocarcinoma would be the diagnosis of exclusion. IMPRESSION: 1. A 1.7 cm spiculated nodule within the right upper lobe. This is highly suspicious for a primary br onchogenic malignancy. 2. There is a predominantly linear focal density within the lateral segment of the right middle lobe which measures 4.7 x 1.2 cm. This demonstrates areas of irregularity/spiculation and a small nodular component along the inferior aspect measuring 8 mm. This could represent scarring. However, an underl faheem pulmonary lesion cannot be excluded. 3. A 1.4 cm cystic nodule with a thin surrounding rim within the right lower lobe. This would represe nt a developing low-grade adenocarcinoma. 4. Follow-up pulmonary consultation and nonemergent head CT is recommended for further evaluation of the pulmonary lesions. 5. Severe emphysema. ACT 112: Positive. There are findings on this exam that require communication between the performing entity and the patient following Patient Test Result Information Act ([place] Act 112) guidelines. Electronically signed by: Nasim Kamara M.D. 03/22/2020 4:06 PM
[2020-03-22] MEDS ORDERED: cefTRIAXone SODIUM 1,000 MG/50 ML BAG IV STA (17:01)
[2020-03-22] MEDS ORDERED: GLUCOSE 10 TABS/TUBE PO PRN (20:02)
[2020-03-22] MEDS ORDERED: GLUCOSE 40% GEL 15 GM TUBE PO PRN (20:02)
[2020-03-22] MEDS ORDERED: ALUMINUM/MAGNESIUM SUSP 30 ML UDC PO PRN (20:02)
[2020-03-22] MEDS ORDERED: ONDANSETRON INJ 2 MG/ML 2 ML VIAL IV PRN (20:02)
[2020-03-22] MEDS ORDERED: GLUCAGON FOR INJ 1 MG VIAL SQ PRN (20:02)
[2020-03-22] MEDS ORDERED: DEXTROSE 50% 50 ML SYRINGE IV PRN (20:02)
[2020-03-22] MEDS: INSULIN ASPART 100 UNITS/ML 3 ML PEN SC SCH (21:17)
[2020-03-22] MEDS: INSULIN GLARGINE SOLOSTAR 100 UNITS/ML 3 ML PEN SQ SCH (21:17)
[2020-03-22] MEDS: SIMVASTATIN 40 MG TAB PO SCH (21:18)
[2020-03-22] MEDS: HEPARIN SOD 5,000 UNIT/0.5 ML VIAL SQ SCH (21:18)
[2020-03-22] MEDS: SODIUM CHLORIDE 0.9% 1000ML 1,000 ML IV SCH (21:42)
[2020-03-23 06:39] LABS: Eosinophils # (auto) 0.12 K/uL (0-0.5); Eosinophils % (auto) 0.8 %; Hemoglobin 12.5 g/dL (14.0-18.0); Immature Granulocytes # (auto) 0.05 K/uL (0.00-0.02); Immature Granulocytes % (auto) 0.3 %; Lymphocytes # (auto) 1.39 K/uL (1.2-3.4); Lymphocytes % (auto) 9.2 %; Mean Corpuscular Hemoglobin 32.6 pg (25-34); Mean Corpuscular Hgb Conc 32.9 g/dL (32-36); Mean Corpuscular Volume 99.2 fL (80-100); Mean Platelet Volume 11.6 fL (7.4-10.4); Monocytes % (auto) 4.6 %; Neutrophils # (auto) 12.85 K/uL (1.4-6.5); Neutrophils % (auto) 85.1 %; Platelet Count 149 K/uL (130-400); RDW Coefficient of Variation 15.4 % (11.5-14.5); RDW Standard Deviation 55.7 fL (36.4-46.3); Red Blood Count 3.83 M/uL (4.7-6.1); White Blood Count 15.11 K/uL (4.8-10.8)
[2020-03-23 07:10] LABS: Estimated Average Glucose 174 mg/dl; Hemoglobin A1C 7.7 % (4.5-5.6)
[2020-03-23 07:13] LABS: Albumin Level 2.4 gm/dl (3.4-5.0); BUN Creatinine Ratio 70.2 (10-20); Calcium 7.9 mg/dl (8.5-10.1); Creatinine Clr Calc Pharmacy 53.9 ml/min; Est GFR (African American) 96.3; Est GFR (Non-African American) 83.1; Magnesium 2.3 mg/dl (1.8-2.4)
[2020-03-23 07:30] LABS: Albumin Globulin Ratio 0.7 (0.9-2); Bilirubin,Total 0.5 mg/dl (0.2-1); Globulin 3.3 gm/dl (2.5-4.0); Total Protein 5.7 gm/dl (6.4-8.2)
--- NOTE | 2020-03-23 08:12 | Hospitalist Progress Note ---
Date of Service March 23, 2020 Assessment & Plan (1) Acute UTI (urinary tract infection): Gregor Cash is a 79yo male with a PMH of DM2, HTN, HLD, and vascular dementia who brought to the ED after he was noted to be confused at an office appointment, found to have a UTI on admission. Altered mental status -likely metabolic encephalopathy secondary to UTI (see below); other possible contributing factors include history of vascular dementia -has a few-month history of forgetfulness per PCP notes, episode of getting lost last week per family -CT head negative for acute bleed, CXR negative for findings suspicious of infection but with incidental nodules found -MRI brain notable for microangiopathic disease, negative for metastatic disease -will treat UTI as below -speech therapy consult for cognitive assessment; [facility] involved -case management consulted -BMP qAM UTI -UA with nitrites, 2+ blood, 1+ leuk esterase, WBC>30, hyaline casts, 4+ bacteria -culture growing gram negative bacilli; sensitivities pending -hemodynamically stable and afebrile -WBC on admission 20.2 improved to 15.1 today -remains asymptomatic from a perspective -c/w ceftriaxone IV -NSS @ 80mL/hr -CBC qAM Lung nodules -incidental finding on CXR -CT chest: 1.7cm right upper lobe spiculated nodule suspicious for primary bronchogenic pulmonary malignancy -focal density in lateral aspect of right middle lobe 4.7x1.2cm and 1.4cm cystic nodule in right lower lobe -60+ pack year smoking history -ROS per pulmonology positive for unintentional weight loss and ongoing cough -patient reports he does not want further workup for potential cancer (see pulmonology note for further details of discussion) -question of patient's capacity; will reassess as UTI is treated and confusion hopefully clears -no power of employment law attorney listed in EMR; will investigate further DM2 -glucose 359 upon admission -A1c 7.7 on admission -BSG premeal and qhs -holding metformin -c/w glargine 10u sq qhs, ISS -diabetic diet OPAL: resolved -BUN/Cr on admission elevated to 65/1.49; BUN remains elevated at 60, Cr improved to 0.86 today with IVF and PO HLD -c/w simvastatin HTN -holding home lisinopril due to OPAL and pressures within range during visit ANILI: diabetic diet, NSS@80mL/hr DVT ppx: heparin 5000u sq qd Code status: full code Dispo: med/surg (2) Acute kidney injury: (3) Diabetes type 2, uncontrolled: (4) Dyslipidemia: (5) Forgetfulness: Admission and Anticipated Discharge Date Admission Date: March 22, 2020 Supervising Physician Co-Signing Physician Notes I also saw the patient with the resident physician and confirmed iglesias portions of the history and physical examination. I agree with the impression and plan as noted in the resident documentation. Briefly, 79-year-old male with history of underlying dementia (suspect vascular) who sounds to have had an acute increase in confusion and was brought to the emergency department where he was found to have acute urinary tract infection. This afternoon, he remains oriented to place only. He is somewhat disgruntled being in the hospital. He has no complaints of pain or distress. Unfortunately, CT scan done after admission raise question of a pulmonary malignancy. It is noted the patient has a 60+ pack year history of tobacco use, as well as unintentional weight loss and an ongoing cough. He was seen in consultation by pulmonary medicine; consult reviewed and appreciated. 134/72, 68, 16, 36.8, 98% (room air). White blood cell count 15.1, hemoglobin 12.5 BUN 60, creatinine 0.86 COVID negative Acute urinary tract infection Urine culture growing gram-negative bacilli Continue current antibiotics pending speciation and sensitivities Mental status change (metabolic encephalopathy secondary to acute UTI, in the setting of progressive dementia) Hopefully sensorium will improve with treatment of infection; unsure of baseline Will need to reach out to family to gather collateral information with regards to the patient's ability to self-care MRI of brain Likely pulmonary malignancy Pulmonary consult Subjective Patient was seen at the bedside this morning. He reports he feels fine and wants to go home, saying he doesn't need to be in the hospital and doesn't understand why he's here. He was oriented to person only but not to place or time (year). He remembers going to an appointment yesterday to get his "AC1" checked but does not remember feeling confused, being found by staff, or being brought to the hospital. He reports he has felt fine over the past few days and denies fever, chills, confusion, urinary symptoms including frequency, urgency, pain with urination, dark urine, or incomplete voiding. He also denies chest pain, shortness of breath, weakness, lightheadedness, dizziness, nausea, vomiting, diarrhea, or constipation. Review of Systems Constitutional: no fever, no chills, no fatigue and no weakness Respiratory: no cough and no dyspnea Cardiovascular: no chest pain, no dyspnea, no palpitations, no lightheadedness, no edema and no calf pain Gastrointestinal: no abdominal pain, no nausea, no vomiting, no constipation and no diarrhea/loose stools Genitourinary: no dysuria, no difficulty urinating, no urinary frequency, no urinary hesitancy, no urinary incontinence, no decreased urination and no flank pain Neurologic: no falls, no numbness, no lack of coordination and no dizziness Physical Exam Constitutional: cooperative and comfortable; no acute distress and not ill appearing Respiratory: normal respiratory effort; no respiratory distress and no labored breathing very mild expiratory wheezes heard in all rodríguez Cardiovascular: Rate/Rhythm: regular rate and regular rhythm Extremities: no edema grade 4/6 systolic crescendo-decrescendo murmur Gastrointestinal (Abdomen): normal bowel sounds, soft, nontender, no hepatosplenomegaly Neurologic: awake Psychiatric: Orientation: alert, oriented to person and cooperative; + not oriented to place and + not oriented to time Apperance: appropriately groomed Eye Contact: good eye contact Speech: normal rate/rhythm/volume of speech Results & Data Results & Data ([facility]) Vital Signs (Past 12 Hours) Vital Signs Temp Pulse Resp BP Pulse Ox 03/23/20 07:07 36.5 C 59 L 16 120/63 97 03/22/20 23:20 36.3 C L 66 16 114/65 95 Resident Activity Tracking Resident Involvement: Resident Care Provided Care Provided: Adult Hospital Medicine
[2020-03-23] MEDS: HEPARIN SOD 5,000 UNIT/0.5 ML VIAL SQ SCH ×2 (09:19→20:51)
[2020-03-23] MEDS: CHOLECALCIFEROL 1,000 UNITS 25 MCG TAB PO SCH (09:19)
[2020-03-23] MEDS: ASPIRIN 81 MG ECTAB PO SCH (09:19)
[2020-03-23] MEDS: INSULIN ASPART 100 UNITS/ML 3 ML PEN SC SCH ×4 (09:25→20:53)
[2020-03-23] MEDS: SODIUM CHLORIDE 0.9% 1000ML 1,000 ML IV SCH ×2 (09:36→23:59)
--- NOTE | 2020-03-23 14:54 | Pulmonary Consultation ---
Date of Consultation March 23, 2020 Assessment & Plan (1) Lung nodule, multiple: Mr. Cash is a 79 yo gentleman who was admitted to the hospital on 03/12/30 for evaluation of altered mental status. The cause of his AMS is thought to be metabolic, as he is septic from a urinary tract infection. As part of his sepsis work-up a CXR was obtained, which incidentally noted a right upper lobe nodule. CT scan of chest was then obtained for further characterization, which revealed a 1.7 cm spiculated nodule within the right upper lobe, the appearance of which was highly suspicious for a primary bronchogenic malignancy. Additionally, a focal density within the lateral segment of the right middle lobe (measuring 4.7 x 1.2 cm) with an irregular or spiculated appearance was noted, as was a 1.4 cm cystic nodule was identified in the right lower lobe - radiology noted the latter may a developing low-grade adenocarcinoma. - patient with 60+ pack year history of tobacco use - review of systems was positive for B symptoms (unintentional weight loss) and ongoing cough - collectively, the radiographic findings and clinical picture are certainly concerning for pulmonary malignancy - The radiographic findings were reviewed with Mr. Cash and the concern for a likely lung cancer diagnosis was expressed to him. Mr. Cash stated that he is unsure whether he would want to undergo further testing to determine if the nodules were, in fact, cancerous. He said, "at my age, even if it is cancer, I would not want to mess with it." When asked if he is aware that untreated cancer could kill him, he replied "what's the difference? Something eventually will." - In the event Mr. Cash were to desire further work-up, I would recommend he start with a PET scan, which can be arranged as an outpatient Supervising Physician Co-Signing Physician Notes Dr. Tracy was the resident-physician during care of patient. I separately evaluated patient for iglesias portions of the history and the exam. I was present during the critical portion of medical decision making, and I discussed the case with the resident. I generally agree with the findings and plan except for any additions/exceptions noted. 79-year-old male with a past medical history of dementia, COPD and tobacco abuse presenting to the hospital due to altered mental status. Patient notes that he smoked since age of 16 and continues to smoke 1 to 1.5 packs/day. He is agitated and frustrated. He is tired of laying in bed. He is a poor historian. He underwent a chest x-ray on admission which found a questionable nodular opacity in the right midlung. A CT chest was recommended for further assessment. CT chest completed and demonstrated a 1.7 cm nodule within the right upper lobe suspicious for possible lung cancer. A 4.7 x 1.2 cm density was noted in the right middle lobe as well with areas of irregularity and spiculation concerning for malignancy. Pulmonary consultation was recommended. Patient has evidence of severe bilateral centrilobular emphysema. Patient indicated to me that he does not want further evaluation. I am not certain that he has medical decision-making capacity at this time. These lesions can be followed up as an outpatient with a PET/CT if the patient and/or family wishes to pursue further follow-up. Pulmonary will be happy to facilitate as an outpatient if desired. History of Present Illness Attending Physician: Fredi Fountain, History of Present Illness Mr. Cash is a 79 yo gentleman who was admitted to the hospital on 03/12/30 for evaluation of altered mental status. Mr. Cash was at an outpatient diabetes education visit when the provider noticed that he was confused and called an ambulance to transport him to the hospital for further evaluation. On admission, he was found to be septic, likely from a urinary source and was started on IV antibiotics. As part of his septic work-up, a chest Xray was obtained in the emergency department, which showed a nodular opacity of the right midlung. A CT scan of the chest was order to further characterize the opacity, which revealed a 1.7 cm spiculated nodule within the right upper lobe, the appearance of which was highly suspicious for a primary bronchogenic malignancy. Additionally, a focal density within the lateral segment of the right middle lobe (measuring 4.7 x 1.2 cm) with an irregular or spiculated appearance was noted, as was a 1.4 cm cystic nodule was identified in the right lower lobe - radiology noted the latter may a developing low-grade adenocarcinoma. Mr. Cash is a current tobacco user - he started smoking cigarettes at the age of 16 or 17 years. For many of those years, he smoked 1 pack per day. He denies any personal history of cancer. No family history of cancer. 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 He lives alone. He endorses an occasional dry cough, but denies any hemoptysis. He reports an unintentional weight loss of ~ 11 pounds, although he is unsure of the time frame this took place over. He denies chest pain, dyspnea on exertion, and night sweats. Allergies Allergy/AdvReac Type Severity Reaction Status Date / Time No Known Allergies Allergy Verified 03/22/20 14:39 Home Medications Medication Instructions Recorded Confirmed Type aspirin 81 mg tablet,delayed 81 mg PO DAILY #30 tab 12/08/18 03/22/20 Rx release cholecalciferol (vitamin D3) 25 1,000 units PO DAILY #30 cap 12/08/18 03/22/20 Rx mcg (1,000 unit) capsule insulin aspart U-100 100 unit/mL 3 units SQ .COMPLEX #15 ml 12/14/18 03/22/20 Rx (3 mL) subcutaneous pen insulin aspart U-100 100 unit/mL 30 units SQ DAILY 90 Days #27 ml 07/02/19 03/22/20 Rx (3 mL) subcutaneous pen simvastatin 40 mg tablet 40 mg PO QPM #90 tab 08/22/19 03/22/20 Rx lisinopril 10 1 tab PO DAILY #90 tab 11/12/19 03/22/20 Rx mg-hydrochlorothiazide 12.5 mg tablet insulin glargine [Lantus Solostar See Rx Instructions .ROUTE .COMPLEX 03/22/20 03/22/20 History U-100 Insulin] Patient History Medical History (Updated 03/23/20 @ 15:12 by Lynette Tracy MD) Diabetes type 2, uncontrolled Surgical History S/P cataract surgery Family History Other No significant family history Social History Smoking Status: Current every day smoker Cigarettes Per Day: 20; Hx Alcohol Use: No Hx Substance Use: No Preferred Language: [place] Communication Ability: Effective Visual Impairment: No Limitations Hearing Ability: Normal Beliefs That Will Affect Care: None marital status: / Current Living Situation: Alone current occupational status: employed Feels Safe at Home: Yes Seatbelt Use: always Assistive Devices: None Review of Systems Constitutional: + weight loss; no sweats Respiratory: + cough; no dyspnea and no hemoptysis Cardiovascular: no chest pain Physical Exam Constitutional: + cachectic, + disheveled and cooperative + smells of cigarette smoke Eyes: + anicteric sclerae ENMT: external ear and nose normal, oropharynx normal Neck: normal visual inspection and trachea midline Respiratory: normal respiratory effort, able to speak in complete sentences and + prolonged expiratory phase; no cough Auscultation: + wheezes (diffusely throughout bilateral lung rodríguez ) and + egophony (+ RML) Cardiovascular: RRR, no murmur, no edema Heart Sounds: normal S1 and normal S2 Gastrointestinal (Abdomen): Inspection/Auscultation: abdomen normal to inspection and normal bowel sounds Percussion/Palpation: abdomen soft; abdomen nontender and no guarding Skin: no rashes, warm and dry Neurologic: awake Psychiatric: Orientation: alert, oriented to person, oriented to place and oriented to time (somewhat confused, thinks he has been in the hospital since ) Results & Data Results & Data ([facility]) Vital Signs (Past 12 Hours) Vital Signs Temp Pulse Resp BP Pulse Ox 03/23/20 07:07 36.5 C 59 L 16 120/63 97 Resident Activity Tracking Resident Involvement: Resident Care Provided Care Provided: Adult Hospital Medicine
--- NOTE | 2020-03-23 16:53 | XRay Report ---
BONY ORBITS 3 VIEWS CLINICAL HISTORY: MRI clearance. FINDINGS: 3 views of the bony orbits are obtained. No prior studies are available for comparison at t he time of dictation. There is no radiodense/metallic foreign body seen in the region of the bony orb its. The bony orbits are intact as imaged. The visualized paranasal sinuses and the mastoid air cells appear clear. The imaged calvarium appears intact. IMPRESSION: There is no radiodense/metallic foreign body seen in the region of the bony orbits. ACT 112: Negative or not required by law. Electronically signed by: Luther Berger M.D. 03/23/2020 4:52 PM
[2020-03-23] MEDS ORDERED: GADOBUTROL 65ML VIAL IV ONE (17:18)
--- NOTE | 2020-03-23 17:40 | Magnetic Resonance Report ---
MRI OF THE BRAIN COMBO CLINICAL HISTORY: Change in mental status. Dizziness. Lung lesions. COMPARISON STUDY: CT of the brain dated 03/22/2020. TECHNIQUE: MRI of the brain was performed utilizing various T1 and T2-weighted sequences in the axial , sagittal, and coronal planes. Contrast-enhanced sequences were acquired following the administratio n of 5 cc of Gadavist. FINDINGS: Brain parenchyma: There is age-related involutional change noting moderate subcortical and periventri cular microangiopathic disease. There is no hemorrhage or mass effect. There is no restricted diffusi on to suggest acute ischemia. No enhancing mass lesion is identified on the postcontrast images. Dewitt -white matter differentiation is preserved. No extra-axial fluid collection is seen. The cerebellar t onsils are normal in configuration. Ventricles, sulci, and cisterns: Prominent secondary to involutional change. Pituitary and sella: Unremarkable. Intracranial vasculature: Normal flow voids are maintained at the skull base. Orbits: The bony orbits are grossly intact. Orbital contents are normal in appearance noting bilatera l ocular lens implants. Sinuses and mastoids: Clear. Calvarium: Unremarkable. Cervical cord: Partially visualized cervical spinal cord is normal in morphology and signal intensity . IMPRESSION: No acute intracranial abnormality is identified. Specifically, there is no evidence of i ntracranial metastatic disease as clinically queried. ACT 112: Negative or not required by law. Electronically signed by: Luther Berger M.D. 03/23/2020 5:39 PM
[2020-03-23] MEDS: cefTRIAXone SODIUM 1,000 MG in DEXTROSE 5% 50 ML IV SCH (17:58)
[2020-03-23] MEDS: SIMVASTATIN 40 MG TAB PO SCH (20:51)
[2020-03-23] MEDS: INSULIN GLARGINE SOLOSTAR 100 UNITS/ML 3 ML PEN SQ SCH (20:52)
[2020-03-24 07:19] LABS: Basophils # (auto) 0.01 K/uL (0-0.2); Basophils % (auto) 0.1 %; Eosinophils # (auto) 0.05 K/uL (0-0.5); Eosinophils % (auto) 0.5 %; Hematocrit (blood only) 37.8 % (42-52); Hemoglobin 12.4 g/dL (14.0-18.0); Immature Granulocytes # (auto) 0.06 K/uL (0.00-0.02); Immature Granulocytes % (auto) 0.7 %; Lymphocytes # (auto) 0.64 K/uL (1.2-3.4); Mean Corpuscular Hemoglobin 32.5 pg (25-34); Mean Corpuscular Hgb Conc 32.8 g/dL (32-36); Mean Corpuscular Volume 99.2 fL (80-100); Monocytes # (auto) 1.04 K/uL (0.11-0.59); Monocytes % (auto) 11.4 %; Neutrophils # (auto) 7.33 K/uL (1.4-6.5); Neutrophils % (auto) 80.3 %; Platelet Count 153 K/uL (130-400); RDW Coefficient of Variation 15.1 % (11.5-14.5); RDW Standard Deviation 55.3 fL (36.4-46.3); Red Blood Count 3.81 M/uL (4.7-6.1); White Blood Count 9.13 K/uL (4.8-10.8)
[2020-03-24 07:51] LABS: Albumin Level 2.1 gm/dl (3.4-5.0); BUN Creatinine Ratio 55.9 (10-20); Calcium 7.6 mg/dl (8.5-10.1); Creatinine Clr Calc Pharmacy 53.9 ml/min; Est GFR (African American) 96.3; Est GFR (Non-African American) 83.1; Magnesium 2.1 mg/dl (1.8-2.4); Potassium 4.1 mmol/L (3.5-5.1)
[2020-03-24 07:55] LABS: Albumin Globulin Ratio 0.6 (0.9-2); Bilirubin,Total 0.6 mg/dl (0.2-1); Globulin 3.3 gm/dl (2.5-4.0); Total Protein 5.4 gm/dl (6.4-8.2)
[2020-03-24] MEDS: CHOLECALCIFEROL 1,000 UNITS 25 MCG TAB PO SCH (08:40)
[2020-03-24] MEDS: HEPARIN SOD 5,000 UNIT/0.5 ML VIAL SQ SCH ×2 (08:40→20:55)
[2020-03-24] MEDS: ASPIRIN 81 MG ECTAB PO SCH (08:40)
[2020-03-24] MEDS: INSULIN ASPART 100 UNITS/ML 3 ML PEN SC SCH ×4 (08:43→21:37)
--- NOTE | 2020-03-24 11:00 | Hospitalist Progress Note ---
Date of Service March 24, 2020 Assessment & Plan (1) Acute UTI (urinary tract infection): Gregor Cash is a 79yo male with a PMH of DM2, HTN, HLD, and vascular dementia who brought to the ED after he was noted to be confused at an office appointment, found to have a UTI on admission. Altered mental status -likely metabolic encephalopathy secondary to UTI (see below); other possible contributing factors include history of vascular dementia -has a few-month history of forgetfulness per PCP notes, episode of getting lost last week per family -CT head negative for acute bleed, CXR negative for findings suspicious of infection but with incidental nodules found -MRI brain notable for microangiopathic disease, negative for metastatic disease -will treat UTI as below -speech therapy consult for cognitive assessment; Office of Aging involved -case management consulted -BMP qAM UTI -UA with nitrites, 2+ blood, 1+ leuk esterase, WBC>30, hyaline casts, 4+ bacteria -culture growing gram negative bacilli; sensitivities pending -hemodynamically stable and afebrile -WBC on admission 20.2 improved to 15.1 yesterday, further improved to 9.1 today -remains asymptomatic from a perspective -c/w ceftriaxone IV -NSS @ 80mL/hr -CBC qAM Lung nodules -incidental finding on CXR -CT chest: 1.7cm right upper lobe spiculated nodule suspicious for primary bronchogenic pulmonary malignancy -focal density in lateral aspect of right middle lobe 4.7x1.2cm and 1.4cm cystic nodule in right lower lobe -60+ pack year smoking history -ROS per pulmonology positive for unintentional weight loss and ongoing cough -patient reports he does not want further workup for potential cancer (see pulmonology note for further details of discussion) -question of patient's capacity; will reassess as UTI is treated and confusion hopefully clears DM2 -glucose 359 upon admission -A1c 7.7 on admission -BSG premeal and qhs -holding metformin -c/w glargine 10u sq qhs, ISS -diabetic diet OPAL: resolved -BUN/Cr on admission elevated to 65/1.49; BUN remains elevated at 60, Cr improved to 0.86 today with IVF and PO HLD -c/w simvastatin HTN -holding home lisinopril due to OPAL and pressures within range during visit FENGI: diabetic diet, NSS@80mL/hr DVT ppx: heparin 5000u sq qd Code status: full code Dispo: med/surg (2) Acute kidney injury: (3) Diabetes type 2, uncontrolled: (4) Dyslipidemia: (5) Forgetfulness: Admission and Anticipated Discharge Date Admission Date: March 22, 2020 Subjective Patient was seen at the bedside this evening. He again reports he feels fine and wants to go home, saying he doesn't need to be in the hospital. Seems to have a better grasp on why he is here. He was oriented to person and place but not to year. Denies fever, chills, confusion, urinary symptoms including frequency, urgency, pain with urination, dark urine, or incomplete voiding. Also denies ch est pain, shortness of breath, weakness, lightheadedness, dizziness, nausea, vomiting, diarrhea, or constipation. Review of Systems Constitutional: as per Subjective / HPI Physical Exam Constitutional: cooperative and comfortable; no acute distress and not ill appearing Respiratory: normal respiratory effort; no respiratory distress and no labored breathing Cardiovascular: Rate/Rhythm: regular rate and regular rhythm Extremities: no edema Gastrointestinal (Abdomen): normal bowel sounds, soft, nontender, no hepatosplenomegaly Neurologic: awake Psychiatric: Orientation: alert, oriented to person, oriented to place and cooperative; + not oriented to time Apperance: appropriately groomed Eye Contact: good eye contact Speech: normal rate/rhythm/volume of speech Results & Data Results & Data ([facility]) Vital Signs (Past 12 Hours) Vital Signs Temp Pulse Resp BP Pulse Ox 03/24/20 07:55 36.5 C 52 L 16 122/53 L 97 03/23/20 23:11 36.5 C 59 L 16 122/67 96 Resident Activity Tracking Resident Involvement: Resident Care Provided Care Provided: Adult Hospital Medicine
[2020-03-24] MEDS: SODIUM CHLORIDE 0.9% 1000ML 1,000 ML IV SCH (12:28)
[2020-03-24] MEDS ORDERED: PHARMACY GLYCEMIC MGMT CONSULT PRN (13:45)
[2020-03-24] MEDS ORDERED: INSULIN GLARGINE SOLOSTAR 100 UNITS/ML 3 ML PEN SQ ONE (14:00)
[2020-03-24] MEDS: cefTRIAXone SODIUM 1,000 MG in DEXTROSE 5% 50 ML IV SCH (16:42)
[2020-03-24] MEDS: SIMVASTATIN 40 MG TAB PO SCH (20:40)
[2020-03-24] MEDS: ACETAMINOPHEN 325 MG TAB PO PRN (20:59)
[2020-03-24] MEDS ORDERED: INSULIN GLARGINE SOLOSTAR 100 UNITS/ML 3 ML PEN SQ SCH (21:00)
[2020-03-25] MEDS: SODIUM CHLORIDE 0.9% 1000ML 1,000 ML IV SCH ×2 (01:53→13:51)
--- NOTE | 2020-03-25 05:47 | Communication Note ---
Date of Service: March 25, 2020 Notified by nursing that this pt was given a bath and he was very irritated with nursing staff but the noticed the following: "The one thing that is notable is that his left groin has a large multi colored mass, rough to touch and the length of his groin." Resident Activity Tracking Resident Involvement: [employer] Coverage Note Care Provided: Adult Hospital Medicine
--- NOTE | 2020-03-25 09:04 | Hospitalist Progress Note ---
Date of Service March 25, 2020 Assessment & Plan (1) AMS (altered mental status): Gregor Cash is a 79 y/o M w/ hx of DM2, HTN, HLD, and vascular dementia who presented for confusion (noted by outpatient office) and found to have a UTI on admission. Altered mental status - mild memory deficits likely chronic. A&)x2 on 03/25/20. -likely metabolic encephalopathy secondary to UTI; other possible contributing factors include history of vascular dementia -has a few-month history of forgetfulness per PCP notes, episode of getting lost last week per family -CT head negative for acute bleed, CXR negative for findings suspicious of infection but with incidental nodules found -MRI brain notable for microangiopathic disease, negative for metastatic disease -will treat UTI as below -speech therapy consult for cognitive assessment pending; Office of Aging involved. will f/u w/ case management after weekend -BMP qAM L groin mass - newly discovered as of 03/25/20, but based on size and appearance, likely has been present for a long time - not in previously documented records - can workup for infection (as well as explore treatment options such as resection): hiv, syphilis, malignancy, but will defer workup for now due to patient preference - monitor for pain/symptoms UTI -UA with nitrites, 2+ blood, 1+ leuk esterase, WBC>30, hyaline casts, 4+ bacteria - culture growing gram negative bacilli; pansensitive ecoli. BC prelim NG. - hemodynamically stable and afebrile - WBC on admission 20.2 improved to 15.1 yesterday, further improved to 9.1 today - continue ceftriaxone IV - NSS @ 80mL/hr - CBC qAM Lung nodules -incidental finding on CXR -CT chest: 1.7cm right upper lobe spiculated nodule suspicious for primary bronchogenic pulmonary malignancy -focal density in lateral aspect of right middle lobe 4.7x1.2cm and 1.4cm cystic nodule in right lower lobe -60+ pack year smoking history -ROS per pulmonology positive for unintentional weight loss and ongoing cough -patient reports he does not want further workup for potential cancer (see pulmonology note for further details of discussion) -question of patient's capacity; hospitalist team believes patient has capacity DM2 -A1c 7.7 on admission -BSG premeal and qhs -holding metformin -c/w glargine 10u sq qhs, ISS OPAL - resolved HLD - continue simvastatin HTN -holding home lisinopril. ranging normotensive/low Ca 7.6, uncorrected - corrected CA (albumin 2.1) is 9.1 FENGI: diabetic diet, NSS@80mL/hr DVT ppx: heparin 5000u sq qd Code status: full code Dispo: med/surg. Attending updated patient's daughter 03/25/20. f/u w/ case management after weekend regarding Office of Aging and dispo plan. (2) Left groin mass: (3) Lung nodule, multiple: (4) Diabetes type 2, uncontrolled: (5) Acute kidney injury: (6) Dyslipidemia: (7) Acute UTI (urinary tract infection): Admission and Anticipated Discharge Date Admission Date: March 22, 2020 Supervising Physician Co-Signing Physician Notes Patient seen and examined independently of PGY-1 Dr. Orta. Agree with history, exam findings, assessment and plan as outlined. In brief, 79 year old male with history of DM2, HTN, HLD and vascular dementia admitted with confusion. He has no complaints today. He is most concerned with his medications and managing his insulin at home. He would like a list of his medications. He is very determined to return home. He did not want me to look at the skin lesion noted by nursing last night. He reports that the lesion does not bother himdenies pain, rubbing or friction or bleeding from the area. Vital signs and nursing notes reviewed. On exam, he is thin and frail appearing. The supraclavicular area is sunken bilaterally. Lungs are clear to auscultation. He would not allow me to look at the skin lesion on his leg/groin. He is oriented x 3. 1. Metabolic encephalopathy secondary to urinary infection. CT Head without bleed. MRI without mets. Treating infection as below. 2. UTI. E. Coli growing. Continue ceftriaxone. 3. Lung mass. 60+ pack year smoking history. Incidental finding on CXR. Follow up CT Chest 1.7cm right upper lobe speculated nodule. Pt does not want further work up for potential malignancy. Discussed with his daughter that potential next steps for work up would be a PET scan with a possible biopsy to determine type of malignancy. Discussed palliative care/hospice options with Sowmya as well. 4. Skin lesion. Per reports, it is an exophytic appearing lesionpossibly a condyloma. 5. DM. A1C 7.7 on admission. Holding home metformin. Appreciate glycemic consult given the fluctuations in glucose readings. 6. HTN. BPs up and down. Holding home Lisinopril. Dispo: PT/OT/speech consults pending. Concerned that patient may not be safe to return home based on Abimael description of his self-care and safety awareness. We also discussed hospice/palliative care. Will plan to call and update daughter Sowmya tomorrow as well ([phone]). Subjective Other than some chronic chills, which are not new for him, patient has no complaints. Per attending, who examined him separately, the patient's main concern is to get a copy of his medications list. Review of Systems Review of Systems: Constitutional: Denies fever, chills Eyes: Denies blurry vision Cardiovascular: Denies chest pain Respiratory: Denies shortness of breath Gastrointestinal: Denies abdominal pain, nausea, vomiting, constipation, diarrhea Genitourinary: Denies urinary symptoms including dysuria Musculoskeletal: Denies weakness Neurological: Denies headache, numbness, tingling, focal weakness Physical Exam Physical Exam: General: Alert and oriented x2 to person and place, not time. NAD. Cooperative. HEENT: Atraumatic, normocephalic. EOMI Pulm: mild exp rhonchi. No respiratory distress. Cardiac: RRR, -mrg. no edema Abdominal: Nontender, nondistended, soft. Groin. Large condyloma-like exophytic mass, nontender at L groin lateral/inferio r to scrotum Results & Data Results & Data ([facility]) Vital Signs (Past 12 Hours) Vital Signs Temp Pulse Resp BP BP Pulse Ox 03/25/20 08:09 36.7 C 58 L 16 112/52 L 96 03/24/20 23:20 37.2 C 56 L 16 100/59 L 96 Resident Activity Tracking Resident Involvement: Resident Care Provided Care Provided: Adult Hospital Medicine
[2020-03-25] MEDS: ASPIRIN 81 MG ECTAB PO SCH (09:30)
[2020-03-25] MEDS: HEPARIN SOD 5,000 UNIT/0.5 ML VIAL SQ SCH ×2 (09:30→21:18)
[2020-03-25] MEDS: CHOLECALCIFEROL 1,000 UNITS 25 MCG TAB PO SCH (09:30)
[2020-03-25] MEDS: INSULIN ASPART 100 UNITS/ML 3 ML PEN SC SCH ×4 (09:31→21:55)
[2020-03-25 12:56] LABS: Basophils # (auto) 0.01 K/uL (0-0.2); Basophils % (auto) 0.1 %; Eosinophils # (auto) 0.05 K/uL (0-0.5); Eosinophils % (auto) 0.6 %; Hematocrit (blood only) 37.7 % (42-52); Hemoglobin 12.2 g/dL (14.0-18.0); Immature Granulocytes # (auto) 0.07 K/uL (0.00-0.02); Immature Granulocytes % (auto) 0.9 %; Lymphocytes % (auto) 7.4 %; Mean Corpuscular Hemoglobin 32.1 pg (25-34); Mean Corpuscular Hgb Conc 32.4 g/dL (32-36); Mean Corpuscular Volume 99.2 fL (80-100); Mean Platelet Volume 11.3 fL (7.4-10.4); Monocytes # (auto) 0.84 K/uL (0.11-0.59); Monocytes % (auto) 10.4 %; Neutrophils # (auto) 6.52 K/uL (1.4-6.5); Neutrophils % (auto) 80.6 %; Platelet Count 165 K/uL (130-400); RDW Coefficient of Variation 14.9 % (11.5-14.5); White Blood Count 8.09 K/uL (4.8-10.8)
[2020-03-25 13:14] LABS: BUN Creatinine Ratio 53.8 (10-20); Calcium 7.6 mg/dl (8.5-10.1); Creatinine Clr Calc Pharmacy 55.2 ml/min; Est GFR (African American) 97.2; Est GFR (Non-African American) 83.9
--- NOTE | 2020-03-25 14:13 | Pharmacy Report ---
Pharmacy Glycemic Short Note 2 - Date of Service March 25, 2020 - Glycemic Short BSG Results (Last 24 hours): 03/24/20 03/24/20 03/25/20 17:15 21:18 08:33 Glucose POC Glucose 121 H 114 H 118 H 03/25/20 03/25/20 11:58 12:31 Glucose 153 H POC Glucose 173 H OUTPATIENT ANTIDIABETIC REGIMEN: * Lantus 8-10 units HS, novolog 3 units TID meals with SSI ASSESSMENT: * 79 year old admitted with altered mental status. Pharmacy consulted for glycemic management as BSGs have been fluctuating low/high since admission * Received total of 28 units of insulin yesterday, of which 10 were basal * Fasting BSG 118 mg/dL - continue same basal insulin. Continues same CF/CR for now PLAN FOR INPATIENT GLYCEMIC CONTROL: * Hold outpatient oral diabetes medications * Basal insulin * Lantus 10 units daily HS * Bolus insulin * NovoLog per scale ACHS or Q6hrs while NPO * Goal Range: Low 110 mg/dL - High 140 mg/dL * Correction Factor: 25 mg/dL/unit * Nutritional / Prandial insulin per carb ratio of 1 unit per 10 grams CHO consumed PLAN FOR DISCHARGE: * tbd
[2020-03-25] MEDS: cefTRIAXone SODIUM 1,000 MG in DEXTROSE 5% 50 ML IV SCH (16:09)
[2020-03-25] MEDS: INSULIN GLARGINE SOLOSTAR 100 UNITS/ML 3 ML PEN SQ SCH (17:40)
[2020-03-25] MEDS: SIMVASTATIN 40 MG TAB PO SCH (21:17)
[2020-03-26] MEDS: SODIUM CHLORIDE 0.9% 1000ML 1,000 ML IV SCH ×2 (01:48→13:31)
[2020-03-26 05:59] LABS: Basophils # (auto) 0.01 K/uL (0-0.2); Basophils % (auto) 0.1 %; Eosinophils % (auto) 1.1 %; Hematocrit (blood only) 35.6 % (42-52); Immature Granulocytes # (auto) 0.06 K/uL (0.00-0.02); Immature Granulocytes % (auto) 0.7 %; Lymphocytes # (auto) 0.87 K/uL (1.2-3.4); Lymphocytes % (auto) 9.9 %; Mean Corpuscular Hemoglobin 32.8 pg (25-34); Mean Corpuscular Hgb Conc 33.7 g/dL (32-36); Mean Corpuscular Volume 97.3 fL (80-100); Mean Platelet Volume 10.8 fL (7.4-10.4); Monocytes # (auto) 0.91 K/uL (0.11-0.59); Monocytes % (auto) 10.4 %; Neutrophils # (auto) 6.83 K/uL (1.4-6.5); Neutrophils % (auto) 77.8 %; Platelet Count 159 K/uL (130-400); RDW Coefficient of Variation 14.8 % (11.5-14.5); RDW Standard Deviation 52.9 fL (36.4-46.3); Red Blood Count 3.66 M/uL (4.7-6.1); White Blood Count 8.78 K/uL (4.8-10.8)
[2020-03-26 06:28] LABS: BUN Creatinine Ratio 53.7 (10-20); Calcium 7.4 mg/dl (8.5-10.1); Creatinine Clr Calc Pharmacy 59.4 ml/min; Est GFR (African American) 100.2; Est GFR (Non-African American) 86.5; Potassium 4.4 mmol/L (3.5-5.1)
--- NOTE | 2020-03-26 08:52 | Hospitalist Progress Note ---
Date of Service March 26, 2020 Assessment & Plan (1) AMS (altered mental status): Gregor Cash is a 79 y/o M w/ hx of DM2, HTN, HLD, and vascular dementia who presented for confusion (noted by outpatient office) and found to have a UTI on admission. Goals of care discussion - attending participated in discussion w/ patient 03/26/20 - Regarding his health, patient believes that his cancer is untreatable (via anecdotal experiences), so he does not see the benefit of treatment. Regarding preferences for his goals of care, patient is undecided. - will place palliative consult Altered mental status - mild memory deficits likely chronic. A&Ox2 on 03/25/20. -likely metabolic encephalopathy secondary to UTI; other possible contributing factors include history of vascular dementia -has a few-month history of forgetfulness per PCP notes, episode of getting lost last week per family -CT head negative for acute bleed, CXR negative for findings suspicious of infection but with incidental nodules found -MRI brain notable for microangiopathic disease, negative for metastatic disease -will treat UTI as below -speech therapy consult 03/26/20: severe cognitive deficits in executive function and short term recall w/ poor insight; Office of Aging involved. will f/u w/ case management after weekend -BMP qAM - temp of 37.6 at 1610 on 03/26/20. will follow. L groin mass - newly discovered as of 03/25/20, but based on size and appearance, likely has been present for a long time - not in previously documented records - can workup for infection (as well as explore treatment options such as resection): hiv, syphilis, malignancy, but will defer workup for now due to patient preference - monitor for pain/symptoms UTI -UA with nitrites, 2+ blood, 1+ leuk esterase, WBC>30, hyaline casts, 4+ bacteria - culture growing gram negative bacilli; pansensitive ecoli. BC prelim NG. - hemodynamically stable and afebrile - WBC on admission 20.2 improved to 15.1 yesterday, further improved to 9.1 t rashaun - continue ceftriaxone IV - NSS @ 80mL/hr - CBC qAM Lung nodules -incidental finding on CXR -CT chest: 1.7cm right upper lobe spiculated nodule suspicious for primary br onchogenic pulmonary malignancy -focal density in lateral aspect of right middle lobe 4.7x1.2cm and 1.4cm cystic nodule in right lower lobe -60+ pack year smoking history -ROS per pulmonology positive for unintentional weight loss and ongoing cough -patient reports he does not want further workup for potential cancer (see pulmonology note for further details of discussion) -question of patient's capacity; hospitalist team believes patient has capacity DM2 -A1c 7.7 on admission -BSG premeal and qhs -holding metformin -c/w glargine 10u sq qhs, ISS OPAL - resolved HLD - continue simvastatin HTN -holding home lisinopril. ranging normotensive/low corrected CA 8.9 03/26/20 - if continues to downtrend, may consider PO repletion FENGI: diabetic diet, NSS@80mL/hr DVT ppx: heparin 5000u sq qd Code status: full code Dispo: med/surg. Attending updated patient's daughter 03/25/20. f/u w/ case management after weekend regarding Office of Aging and dispo plan. (2) Left groin mass: (3) Lung nodule, multiple: (4) Diabetes type 2, uncontrolled: (5) Acute kidney injury: (6) Dyslipidemia: (7) Acute UTI (urinary tract infection): (8) Goals of care, counseling/discussion: Admission and Anticipated Discharge Date Admission Date: March 22, 2020 Supervising Physician Co-Signing Physician Notes Patient seen and examined independently of PGY-1 Dr. Orta. Agree with history, exam findings, assessment and plan as outlined. In brief, 79 year old male with history of DM2, HTN, HLD and vascular dementia admitted with confusion. He has no complaints today. He is most concerned with his medications and managing his insulin at home. He gets frustrated that everyone is asking him the same questions. He feels that we are trying to tell him what he is doing is wrong. He is very concerned about the fact that he has not been able to use his Peter glucose monitor. At home the Peter monitor readings were different from his fingerstick readings. When asked about future plans in terms of caring for himself, he says I do what Im going to doif I want to mow the grass, I will mow the grass. If I dont want to, I wont. If I want to scrub the floors, I will. He does not wish to pursue additional testing and work up for the lung mass. He tells me that he knows several people that had cancer. They went all over to get treatment and despite treatment. He says Whats the use? He has not thought about what life might look like with a terminal medical condition like untreated lung cancer. He says I dont know what I will do until it happens. He is undecided whether or not he would want symptomatic management should he become short of breath. He is not sure if he would even want to come to the hospital should he become very ill. He repeatedly tells me that It is normal to forget things. When his daughter mentioned that he was going into the store with very soiled clothing, he says Whats wrong with that? Are you telling me that people cant got out with dirty clothes? I spent 45 minutes on the phone with daughter Sowmya both with her alone and with her on speaker phone in the room with her father. Completed FMLA form for Sowmya. Vital signs and nursing notes reviewed. On exam, he is thin and frail appearing. The supraclavicular area is sunken bilaterally. Some temporal wasting as well. Lungs are clear to auscultation. He would not allow me to look at the skin lesion on his leg/groin. He is oriented x 3. 1. Metabolic encephalopathy secondary to urinary infection. Improved. Please see below for underlying cognitive impairment. CT Head without bleed. MRI without mets. Treating infection as below. 2. UTI. Ambrosio-sensitive E. Coli. Continue ceftriaxone (day 4). 3. Cognitive impairment. MOCA today was . There is significant concern from daughter Sowmya that he is unable to adequately care for himself. Based on his deficits on the MOCA today, there are safety concerns regarding Gregor living alone. He is very resistant to the idea of living in a supervised setting, whether that is 24/7 care at home or a facility. He has limited insight into his cognitive difficulties. Office of Aging already involved in his case. Appreciate CM assistance with finding suitable placement options. 4. Lung mass. 60+ pack year smoking history. Incidental finding on CXR. Follow up CT Chest 1.7cm right upper lobe speculated nodule. Pt does not want further work up for potential malignancy. Discussed with his daughter that potential next steps for work up would be a PET scan with a possible biopsy to determine type of malignancy. Discussed palliative care/hospice with patienthe is ambivalent. Palliative consult placedappreciate assistance with goals of care. 5. Skin lesion. Per reports, it is an exophytic appearing lesionpossibly a condyloma. 6. DM. A1C 7.7 on admission. Holding home metformin. Appreciate glycemic consult given the fluctuations in glucose readings. 7. HTN. BPs up and down. Holding home Lisinopril. Dispo: PT/OT/speech consults relatively consistent with reporting that there are significant safety concerns regarding patients ability to safely live alone. Appreciate CM and Office of Aging assistance with safe discharge planning. Daughter Sowmya appreciates updates ([phone]). Subjective No new complaints. States did not receive meds list. Doesn't know why he's still in the hospital. Review of Systems Review of Systems: Constitutional: Denies fever, chills Eyes: Denies blurry vision, vision changes ENT: Denies sore throat Cardiovascular: Denies chest pain Respiratory: Denies shortness of breath, cough, sputum production, difficulty breathing Gastrointestinal: Denies abdominal pain, nausea, vomiting, constipation, diarrhea Genitourinary: Denies urinary symptoms including dysuria Musculoskeletal: Denies weakness, muscle aches/pain, joint aches/pain Neurological: Denies headache, numbness, tingling, focal weakness Physical Exam Physical Exam: General: Grossly A&O. Thin. NAD. Cooperative. HEENT: Atraumatic, normocephalic. EOMI Pulm: Mild inspiratory crackles L lower posterior lung base. No respiratory distress. Cardiac: RRR, -mrg. Radial pulses intact and symmetrical. No LE edema. Abdominal: Nontender, nondistended, soft. Results & Data Results & Data ([facility]) Vital Signs (Past 12 Hours) Vital Signs Temp Pulse Resp BP Pulse Ox 03/26/20 07:57 36.6 C 61 16 122/74 93 03/25/20 23:44 36.6 C 68 16 93/50 L 95 Resident Activity Tracking Resident Involvement: Resident Care Provided Care Provided: Adult [facility] Medicine
[2020-03-26] MEDS: HEPARIN SOD 5,000 UNIT/0.5 ML VIAL SQ SCH ×2 (09:25→20:58)
[2020-03-26] MEDS: INSULIN ASPART 100 UNITS/ML 3 ML PEN SC SCH ×4 (09:26→20:59)
[2020-03-26] MEDS: CHOLECALCIFEROL 1,000 UNITS 25 MCG TAB PO SCH (09:27)
[2020-03-26] MEDS: ASPIRIN 81 MG ECTAB PO SCH (09:28)
[2020-03-26] MEDS: cefTRIAXone SODIUM 1,000 MG in DEXTROSE 5% 50 ML IV SCH (16:13)
[2020-03-26] MEDS ORDERED: NURSING DECISION MEDICATION ONE (16:38)
[2020-03-26] MEDS: COUGH DROP (SUGAR FREE) LOZ 24 LOZ/1 BOX BUCCAL PRN (16:51)
[2020-03-26] MEDS: INSULIN GLARGINE SOLOSTAR 100 UNITS/ML 3 ML PEN SQ SCH (18:06)
[2020-03-26] MEDS: SIMVASTATIN 40 MG TAB PO SCH (20:57)
[2020-03-27] MEDS: SODIUM CHLORIDE 0.9% 1000ML 1,000 ML IV SCH ×2 (02:23→12:58)
[2020-03-27] MEDS: COUGH DROP (SUGAR FREE) LOZ 24 LOZ/1 BOX BUCCAL PRN ×2 (04:08→10:14)
[2020-03-27 06:44] LABS: Basophils # (auto) 0.01 K/uL (0-0.2); Basophils % (auto) 0.1 %; Eosinophils # (auto) 0.08 K/uL (0-0.5); Eosinophils % (auto) 1.1 %; Hematocrit (blood only) 34.7 % (42-52); Hemoglobin 11.7 g/dL (14.0-18.0); Immature Granulocytes # (auto) 0.11 K/uL (0.00-0.02); Immature Granulocytes % (auto) 1.5 %; Lymphocytes # (auto) 0.82 K/uL (1.2-3.4); Lymphocytes % (auto) 10.9 %; Mean Corpuscular Hemoglobin 32.8 pg (25-34); Mean Corpuscular Hgb Conc 33.7 g/dL (32-36); Mean Corpuscular Volume 97.2 fL (80-100); Mean Platelet Volume 10.1 fL (7.4-10.4); Monocytes # (auto) 0.87 K/uL (0.11-0.59); Monocytes % (auto) 11.6 %; Neutrophils # (auto) 5.62 K/uL (1.4-6.5); Neutrophils % (auto) 74.8 %; Platelet Count 168 K/uL (130-400); RDW Coefficient of Variation 14.8 % (11.5-14.5); RDW Standard Deviation 52.8 fL (36.4-46.3); Red Blood Count 3.57 M/uL (4.7-6.1); White Blood Count 7.51 K/uL (4.8-10.8)
[2020-03-27 07:17] LABS: Calcium 7.5 mg/dl (8.5-10.1); Creatinine Clr Calc Pharmacy 49.3 ml/min; Est GFR (African American) 89.6; Est GFR (Non-African American) 77.3; Potassium 4.5 mmol/L (3.5-5.1)
[2020-03-27 07:19] LABS: Albumin Globulin Ratio 0.6 (0.9-2); Bilirubin,Total 0.3 mg/dl (0.2-1); Globulin 3.1 gm/dl (2.5-4.0); Total Protein 5.1 gm/dl (6.4-8.2)
[2020-03-27] MEDS ORDERED: INSULIN GLARGINE SOLOSTAR 100 UNITS/ML 3 ML PEN SQ ONE (09:00)
[2020-03-27] MEDS: ASPIRIN 81 MG ECTAB PO SCH (09:06)
[2020-03-27] MEDS: CHOLECALCIFEROL 1,000 UNITS 25 MCG TAB PO SCH (09:06)
[2020-03-27] MEDS: INSULIN ASPART 100 UNITS/ML 3 ML PEN SC SCH ×4 (09:09→21:18)
[2020-03-27] MEDS: HEPARIN SOD 5,000 UNIT/0.5 ML VIAL SQ SCH ×2 (09:11→21:07)
--- NOTE | 2020-03-27 12:14 | Palliative Care Consultation ---
Date of Consultation March 27, 2020 Assessment & Plan (1) Palliative care encounter: I spoke with Mr. Cash who does clearly understand that he likely has advanced lung cancer. He went through the of his with cancer and has very strong feelings about not wanting further evaluation and therapy. He understands that he will from this if untreated and also, most likely if it were treated. He feels that he has lived to a point where dying is not unexpected and wants to on his terms. Having control over this and other situations has historically been an important coping tool for him. While with his dementia, he may not meet the legal definition of competent, he is capable to make decisions, meaning that he understands what is happening, what his treatment options are and what the impact of his decision is. I spoke with is daughter, Sowmya, who does support his decision not to pursue treatment. She would like to have PET scan for purpose of understanding the stage and prognosis of his cancer. However, he has been consistently refusing this. Sowmya's greater concern is his safety at home. Case management and Office of Aging are involved. The unfortunate thing in this case is that despite his diminished cognitive capacity, he is cogent enough, and determined enough, to refuse placement or leave AMA. Sowmya would support home care and Office of Aging support at home and would be agreeable to hospice. (2) Anorexia: Cachexia expected with cancer diagnosis. Encourage nutritional supplements and protein calorie rich foods as tolerated. (3) Lung nodule, multiple: (4) Diabetes mellitus: (5) Vascular dementia: History of Present Illness Reason for Consultation: Goals of care Requesting Physician: Dr. Orta Attending Physician: Kumar Haines DO History of Present Illness 79 yo gentleman with diabetes and vascular dementia. He lives alone and as been independent with ADLs. He presented with mental status changes, presumably due to UTI with OPAL. He is found to have pulmonary nodules and a groin mass which are suspicious for primary lung cancer. He has declined further workup or treatment. We have been consulted to assist with goals of care. Allergies Allergy/AdvReac Type Severity Reaction Status Date / Time No Known Allergies Allergy Verified 03/22/20 14:39 Home Medications Medication Instructions Recorded Confirmed Type aspirin 81 mg tablet,delayed 81 mg PO DAILY #30 tab 12/08/18 03/22/20 Rx release cholecalciferol (vitamin D3) 25 1,000 units PO DAILY #30 cap 12/08/18 03/22/20 Rx mcg (1,000 unit) capsule insulin aspart U-100 100 unit/mL 3 units SQ .COMPLEX #15 ml 12/14/18 03/22/20 Rx (3 mL) subcutaneous pen insulin aspart U-100 100 unit/mL 30 units SQ DAILY 90 Days #27 ml 07/02/19 03/22/20 Rx (3 mL) subcutaneous pen simvastatin 40 mg tablet 40 mg PO QPM #90 tab 08/22/19 03/22/20 Rx lisinopril 10 1 tab PO DAILY #90 tab 11/12/19 03/22/20 Rx mg-hydrochlorothiazide 12.5 mg tablet insulin glargine [Lantus Solostar See Rx Instructions .ROUTE .COMPLEX 03/22/20 03/22/20 History U-100 Insulin] Patient History Medical History Diabetes type 2, uncontrolled Surgical History S/P cataract surgery Family History Other No significant family history Social History Smoking Status: Current every day smoker Cigarettes Per Day: 20; Hx Alcohol Use: No Hx Substance Use: No Preferred Language: French Communication Ability: Effective Visual Impairment: No Limitations Hearing Ability: Normal Beliefs That Will Affect Care: None marital status: / Current Living Situation: Alone current occupational status: employed Feels Safe at Home: Yes Seatbelt Use: always Assistive Devices: None Review of Systems Review of Systems: [place] Symptom Assessment Scale Pain 0/3 Dyspnea 0/3 Nausea 0/3 Anxiety 0/3 Drowsiness 0/3 Palliative Performance score 50-60% Physical Exam Constitutional: + thin; no acute distress Neck: visible nodules left posterior neck Respiratory: normal respiratory effort and + cough; no labored breathing Cardiovascular: Extremities: no edema Gastrointestinal (Abdomen): Inspection/Auscultation: abdomen not distended Musculoskeletal: muscle atrophy Skin: breakdown b/l elbows, warm and dry Neurologic: awake; no focal motor deficits Psychiatric: Orientation: alert Thought Process: goal directed thought process Insight: good insight judgement intact Results & Data ([facility]) Vital Signs (Past 12 Hours) Vital Signs Temp Pulse Resp BP Pulse Ox 03/27/20 07:17 98.8 F 68 18 126/58 L 95 PG Care Time/CCT Total # of Minutes Spent Total Time Spent with Patient: Total time spent is greater than 50% in coordination of care (as documented) at patient's floor/unit and/or counseling patient: Total time spent, 75 minutes with more than 50% of time spent on discussing goals of care, prognosis and family support. Coding Level of Care Code 77532 Inpt Consult Level 4 Diagnoses Palliative care encounter Z51.5 Anorexia R63.0 Lung nodule, multiple R91.8 Diabetes mellitus E11.9 Vascular dementia F01.50
--- NOTE | 2020-03-27 13:21 | Pharmacy Report ---
Pharmacy Glycemic Short Note 2 - Date of Service March 27, 2020 - Glycemic Short BSG Results (Last 24 hours): 03/26/20 03/26/20 03/26/20 17:28 17:29 20:48 Glucose POC Glucose 332 H* 340 H* 173 H 03/27/20 03/27/20 03/27/20 06:23 08:13 12:09 Glucose 199 H POC Glucose 231 H 241 H OUTPATIENT ANTIDIABETIC REGIMEN: * Lantus 8-10 units HS, novolog 3 units TID meals with SSI ASSESSMENT: 03/27: * Patient received 46 units of insulin yesterday, 10 of basal and 36 of correctional/prandial. * Prandial BSGs trended up yesterday, tightened CF and carb ratio * Fasting elevated this morning, gave an additional dose of lantus this morning and will set scale for this evening. 03/25/20 * 79 year old admitted with altered mental status. Pharmacy consulted for glycemic management as BSGs have been fluctuating low/high since admission * Received total of 28 units of insulin yesterday, of which 10 were basal * Fasting BSG 118 mg/dL - continue same basal insulin. Continues same CF/CR for now PLAN FOR INPATIENT GLYCEMIC CONTROL: * Hold outpatient oral diabetes medications * Basal insulin- increase * Lantus 5 units x 1 this morning * Lantus 110-15 units at 1800 * Bolus insulin- Tighten * NovoLog per scale ACHS or Q6hrs while NPO * Goal Range: Low 110 mg/dL - High 140 mg/dL * Correction Factor: 20 mg/dL/unit * Nutritional / Prandial insulin per carb ratio of 1 unit per 9 grams CHO consumed PLAN FOR DISCHARGE: * tbd
--- NOTE | 2020-03-27 16:09 | Hospitalist Progress Note ---
Date of Service March 27, 2020 Assessment & Plan (1) AMS (altered mental status): (2) Left groin mass: (3) Lung nodule, multiple: Mr. Cash is a 79 yo gentleman who was admitted to the hospital on 03/12/30 for evaluation of altered mental status. The cause of his AMS is thought to be metabolic, as he is septic from a urinary tract infection. As part of his sepsis work-up a CXR was obtained, which incidentally noted a right upper lobe nodule. CT scan of chest was then obtained for further characterization, which revealed a 1.7 cm spiculated nodule within the right upper lobe, the appearance of which was highly suspicious for a primary bronchogenic malignancy. Additionally, a focal density within the lateral segment of the right middle lobe (measuring 4.7 x 1.2 cm) with an irregular or spiculated appearance was noted, as was a 1.4 cm cystic nodule was identified in the right lower lobe - radiology noted the latter may a developing low-grade adenocarcinoma. - patient with 60+ pack year history of tobacco use - review of systems was positive for B symptoms (unintentional weight loss) and ongoing cough - collectively, the radiographic findings and clinical picture are certainly concerning for pulmonary malignancy - The radiographic findings were reviewed with Mr. Cash and the concern for a likely lung cancer diagnosis was expressed to him. Mr. Cash stated that he is unsure whether he would want to undergo further testing to determine if the nodules were, in fact, cancerous. He said, "at my age, even if it is cancer, I would not want to mess with it." When asked if he is aware that untreated cancer could kill him, he replied "what's the difference? Something eventually will." - In the event Mr. Cash were to desire further work-up, I would recommend he start with a PET scan, which can be arranged as an outpatient (4) Diabetes type 2, uncontrolled: (5) Acute kidney injury: (6) Dyslipidemia: (7) Acute UTI (urinary tract infection): Gregor Cash is a 79yo male with a PMH of DM2, HTN, HLD, and vascular dementia who brought to the ED after he was noted to be confused at an office appointment, found to have a UTI on admission. no new concerns 03/26/20 waiting on f/u w/ case management 03/27/20 Altered mental status -likely metabolic encephalopathy secondary to UTI (see below); other possible contributing factors include history of vascular dementia -has a few-month history of forgetfulness per PCP notes, episode of getting lost last week per family -CT head negative for acute bleed, CXR negative for findings suspicious of infection but with incidental nodules found -MRI brain notable for microangiopathic disease, negative for metastatic disease -will treat UTI as below -speech therapy consult for cognitive assessment; Office of Aging involved -case management consulted -BMP qAM UTI -UA with nitrites, 2+ blood, 1+ leuk esterase, WBC>30, hyaline casts, 4+ bacteria -culture growing gram negative bacilli; sensitivities pending -hemodynamically stable and afebrile -WBC on admission 20.2 improved to 15.1 yesterday, further improved to 9.1 today -remains asymptomatic from a perspective -c/w ceftriaxone IV -NSS @ 80mL/hr -CBC qAM Lung nodules -incidental finding on CXR -CT chest: 1.7cm right upper lobe spiculated nodule suspicious for primary bronchogenic pulmonary malignancy -focal density in lateral aspect of right middle lobe 4.7x1.2cm and 1.4cm cystic nodule in right lower lobe -60+ pack year smoking history -ROS per pulmonology positive for unintentional weight loss and ongoing cough -patient reports he does not want further workup for potential cancer (see pulmonology note for further details of discussion) -question of patient's capacity; will reassess as UTI is treated and confusion hopefully clears DM2 -glucose 359 upon admission -A1c 7.7 on admission -BSG premeal and qhs -holding metformin -c/w glargine 10u sq qhs, ISS -diabetic diet OPAL: resolved -BUN/Cr on admission elevated to 65/1.49; BUN remains elevated at 60, Cr improved to 0.86 today with IVF and PO HLD -c/w simvastatin HTN -holding home lisinopril due to OPAL and pressures within range during visit FENGI: diabetic diet, NSS@80mL/hr DVT ppx: heparin 5000u sq qd Code status: full code Dispo: med/surg (8) Goals of care, counseling/discussion: Admission and Anticipated Discharge Date Admission Date: March 22, 2020 Supervising Physician Co-Signing Physician Notes I personally examined the patient and verified all iglesias points of history and exam, discussed case, and agree with decision making with Dr Mensah feeling ok overall really wants to go home. d/w dr scott who had extensive discussion w pt and feels he does have capacity to make decisions - she updated dtr of same. vitals noted nad heent nc at mmm breathing unlabored no accessory muscles good effort skin no rashes no pallor or icterus delirium on dementia - ?dehydration vs UTI - doing better; baseline dementia concerning but right now no ability to override pt's decision making otherwise as above probably home w as much support as can be arranged. Subjective Patient seen at bedside this morning. He feels well and is eager for discharge. Denies any symptoms at this time. Alert and oriented x3. Did not have any complaints or questions at this time. Review of Systems Constitutional: no fever and no chills Respiratory: no cough and no dyspnea Cardiovascular: no chest pain, no palpitations and no lightheadedness Gastrointestinal: no abdominal pain, no nausea, no vomiting, no constipation and no diarrhea/loose stools Genitourinary: no dysuria and no urinary frequency Neurologic: no headache(s) and no abnormal speech Physical Exam Constitutional: cooperative and comfortable; no acute distress and not ill appearing Respiratory: normal respiratory effort; no respiratory distress and no labored breathing Cardiovascular: Rate/Rhythm: regular rate and regular rhythm Extremities: no edema Gastrointestinal (Abdomen): normal bowel sounds, soft, nontender, no hepatosplenomegaly Neurologic: awake Psychiatric: Orientation: alert, oriented x 3 and cooperative Apperance: appropriately groomed Eye Contact: good eye contact Speech: normal rate/rhythm/volume of speech Results & Data Results & Data ([facility]) Vital Signs (Past 12 Hours) Vital Signs Temp Pulse Resp BP Pulse Ox 03/27/20 15:44 37.1 C 67 18 129/73 93 03/27/20 07:17 37.1 C 68 18 126/58 L 95 Resident Activity Tracking Resident Involvement: Resident Care Provided Care Provided: Adult Hospital Medicine
[2020-03-27] MEDS: cefTRIAXone SODIUM 1,000 MG in DEXTROSE 5% 50 ML IV SCH (17:36)
[2020-03-27] MEDS ORDERED: INSULIN GLARGINE SOLOSTAR 100 UNITS/ML 3 ML PEN SQ SCH (18:00)
--- NOTE | 2020-03-27 18:53 | Billing Data ---
Date of Service March 27, 2020 Coding Level of Care Code 37163 Subseq Hosp Care Lvl 2
--- NOTE | 2020-03-27 18:55 | Billing Data ---
Date of Service March 27, 2020 Coding Level of Care Code 01055 Subseq Hosp Care Lvl 2
[2020-03-27] MEDS: SIMVASTATIN 40 MG TAB PO SCH (21:07)
[2020-03-28] MEDS: SODIUM CHLORIDE 0.9% 1000ML 1,000 ML IV SCH ×2 (01:58→14:45)
[2020-03-28] MEDS: COUGH DROP (SUGAR FREE) LOZ 24 LOZ/1 BOX BUCCAL PRN ×2 (05:59→14:47)
[2020-03-28 07:18] LABS: Albumin Level 1.9 gm/dl (3.4-5.0); BUN Creatinine Ratio 40.3 (10-20); Calcium 7.7 mg/dl (8.5-10.1); Creatinine Clr Calc Pharmacy 50.4 ml/min; Est GFR (Non-African American) 79.4; Potassium 4.3 mmol/L (3.5-5.1)
[2020-03-28 07:20] LABS: Albumin Globulin Ratio 0.7 (0.9-2); Bilirubin,Total 0.3 mg/dl (0.2-1); Globulin 2.8 gm/dl (2.5-4.0); Total Protein 4.7 gm/dl (6.4-8.2)
--- NOTE | 2020-03-28 08:53 | Hospitalist Progress Note ---
Date of Service March 28, 2020 Assessment & Plan (1) AMS (altered mental status): Gregor Cash is a 79 y/o M w/ hx of DM2, HTN, HLD, and vascular dementia who presented for confusion (noted by outpatient office) and found to have a UTI on admission. Goals of care discussion - attending participated in discussion w/ patient 03/26/20 - Regarding his health, patient believes that his cancer is untreatable (via anecdotal experiences), so he does not see the benefit of treatment. Regarding preferences for his goals of care, patient is undecided. - palliative care discussion ongoing - working with case management re: placement Altered mental status - mild memory deficits likely chronic. A&Ox2 on 03/25/20. -likely metabolic encephalopathy secondary to UTI; other possible contributing factors include history of vascular dementia -has a few-month history of forgetfulness per PCP notes, episode of getting lost last week per family -CT head negative for acute bleed, CXR negative for findings suspicious of infection but with incidental nodules found -MRI brain notable for microangiopathic disease, negative for metastatic disease -will treat UTI as below -speech therapy consult 03/26/20: severe cognitive deficits in executive function and short term recall w/ poor insight; [facility] of A[facility] involved. will f/u w/ case management after weekend -BMP qAM L groin mass - newly discovered as of 03/25/20, but based on size and appearance, likely has been present for a long time - not in previously documented records - has refused workup or physical exam/evaluation UTI -UA with nitrites, 2+ blood, 1+ leuk esterase, WBC>30, hyaline casts, 4+ bacteria - culture growing gram negative bacilli; pansensitive ecoli. BC prelim NG. - hemodynamically stable and afebrile - WBC on admission 20.2 improved to 15.1 yesterday, further improved to 9.1 today - continue ceftriaxone IV - NSS @ 80mL/hr - CBC qAM Lung nodules -incidental finding on CXR -CT chest: 1.7cm right upper lobe spiculated nodule suspicious for primary bronchogenic pulmonary malignancy -focal density in lateral aspect of right middle lobe 4.7x1.2cm and 1.4cm cystic nodule in right lower lobe -60+ pack year smoking history -ROS per pulmonology positive for unintentional weight loss and ongoing cough -patient reports he does not want further workup for potential cancer (see pulmonology note for further details of discussion) -question of patient's capacity; conversation ongoing -lateral shift of LFTs from 03/27 to 03/28; continue to monitor DM2 -A1c 7.7 on admission -BSG premeal and qhs -holding metformin -c/w glargine 10u sq qhs, ISS OPAL - resolved HLD - continue simvastatin HTN -holding home lisinopril. ranging normotensive/low corrected CA 8.9 03/26/20 - if continues to downtrend, may consider PO repletion FENGI: diabetic diet, NSS@80mL/hr DVT ppx: heparin 5000u sq qd Code status: full code Dispo: med/surg. Attending updated patient's daughter 03/25/20. f/u w/ case management after weekend regarding Office of Aging and dispo plan. (2) Lung nodule, multiple: (3) Diabetes type 2, uncontrolled: (4) Forgetfulness: (5) Left groin mass: (6) Acute kidney injury: (7) Dyslipidemia: (8) Acute UTI (urinary tract infection): (9) Goals of care, counseling/discussion: Admission and Anticipated Discharge Date Admission Date: March 22, 2020 Supervising Physician Co-Signing Physician Notes I personally examined the patient and verified all iglesias points of history and exam, discussed case, and agree with decision making with Dr Mensah no new complaints. seems loosely willing to go to a rehab facility. extensively nearly 30min conversation w dtr vitals noted nad heent nc at mmm breathing unlabored no accessory muscles good effort skin no rashes no pallor or icterus delirium on dementia - ?dehydration vs UTI - doing better; baseline dementia concerning hopefully for rehab once approved. lung ca - doesn't want treatment otherwise as above Subjective Patient seen at bedside this morning. Alert and oriented x3 although patient reports he thought he thought he had been here in the hospital for one month. He was surprised when told he has been here for one week. Patient has no complaints at this time. Review of Systems Review of Systems: Constitutional: Denies fever, chills Eyes: Denies blurry vision, vision changes ENT: Denies sore throat Cardiovascular: Denies chest pain Respiratory: Denies shortness of breath, cough, sputum production, difficulty breathing Gastrointestinal: Denies abdominal pain, nausea, vomiting, constipation, diarrhea Genitourinary: Denies urinary symptoms including dysuria Musculoskeletal: Denies weakness, muscle aches/pain, joint aches/pain Neurological: Denies headache, numbness, tingling, focal weakness Constitutional: no fever and no chills Respiratory: no cough and no dyspnea Cardiovascular: no chest pain, no palpitations and no lightheadedness Gastrointestinal: no abdominal pain, no nausea, no vomiting, no constipation and no diarrhea/loose stools Genitourinary: no dysuria Psychiatric: + confusion Physical Exam Constitutional: + frail appearing, cooperative and comfortable; no acute distress and not ill appearing Neck: 1cm superficial raised mass on posterior aspect of left neck Respiratory: normal respiratory effort; no respiratory distress, no labored breathing and does not use accessory muscles mild expiratory wheezes heard in all lung rodríguez Cardiovascular: RRR, no murmur, no edema Rate/Rhythm: regular rate and regular rhythm Extremities: no edema Gastrointestinal (Abdomen): normal bowel sounds, soft, nontender, no hepatosplenomegaly Neurologic: awake Psychiatric: Orientation: alert, oriented x 3 and cooperative Apperance: appropriately groomed Eye Contact: good eye contact Speech: normal rate/rhythm/volume of speech Cognition: + recent memory not intact awake, alert, oriented to person, place, year, and president Results & Data Results & Data ([facility]) Vital Signs (Past 12 Hours) Vital Signs Temp Pulse Resp BP Pulse Ox 03/28/20 07:19 36.6 C 75 18 110/65 94 03/27/20 23:31 36.4 C L 64 18 125/66 93 Resident Activity Tracking Resident Involvement: Resident Care Provided Care Provided: Adult Hospital Medicine
[2020-03-28] MEDS: CHOLECALCIFEROL 1,000 UNITS 25 MCG TAB PO SCH (09:12)
[2020-03-28] MEDS: ASPIRIN 81 MG ECTAB PO SCH (09:13)
[2020-03-28] MEDS: HEPARIN SOD 5,000 UNIT/0.5 ML VIAL SQ SCH ×2 (09:14→20:41)
[2020-03-28] MEDS: INSULIN ASPART 100 UNITS/ML 3 ML PEN SC SCH ×4 (09:24→20:42)
[2020-03-28] MEDS: cefTRIAXone SODIUM 1,000 MG in DEXTROSE 5% 50 ML IV SCH (16:43)
[2020-03-28] MEDS: INSULIN GLARGINE SOLOSTAR 100 UNITS/ML 3 ML PEN SQ SCH (17:54)
--- NOTE | 2020-03-28 18:18 | Billing Data ---
Date of Service March 28, 2020 Coding Level of Care Code 23845 Subseq Hosp Care Lvl 3
[2020-03-28] MEDS: SIMVASTATIN 40 MG TAB PO SCH (20:41)
[2020-03-29] MEDS: SODIUM CHLORIDE 0.9% 1000ML 1,000 ML IV SCH ×2 (03:21→15:04)
[2020-03-29 07:12] LABS: Basophils # (auto) 0.01 K/uL (0-0.2); Basophils % (auto) 0.2 %; Eosinophils # (auto) 0.13 K/uL (0-0.5); Hematocrit (blood only) 35.9 % (42-52); Hemoglobin 11.8 g/dL (14.0-18.0); Immature Granulocytes # (auto) 0.09 K/uL (0.00-0.02); Immature Granulocytes % (auto) 1.4 %; Lymphocytes # (auto) 0.87 K/uL (1.2-3.4); Lymphocytes % (auto) 13.4 %; Mean Corpuscular Hemoglobin 32.5 pg (25-34); Mean Corpuscular Hgb Conc 32.9 g/dL (32-36); Mean Corpuscular Volume 98.9 fL (80-100); Mean Platelet Volume 10.2 fL (7.4-10.4); Monocytes # (auto) 0.69 K/uL (0.11-0.59); Monocytes % (auto) 10.6 %; Neutrophils % (auto) 72.4 %; Platelet Count 222 K/uL (130-400); RDW Standard Deviation 54.5 fL (36.4-46.3); Red Blood Count 3.63 M/uL (4.7-6.1); White Blood Count 6.49 K/uL (4.8-10.8)
[2020-03-29 07:59] LABS: Albumin Level 1.9 gm/dl (3.4-5.0); BUN Creatinine Ratio 38.6 (10-20); Calcium 7.5 mg/dl (8.5-10.1); Creatinine Clr Calc Pharmacy 57.2 ml/min; Est GFR (African American) 98.7; Est GFR (Non-African American) 85.1; Potassium 4.2 mmol/L (3.5-5.1)
[2020-03-29 08:02] LABS: Albumin Globulin Ratio 0.6 (0.9-2); Bilirubin,Total 0.4 mg/dl (0.2-1); Total Protein 4.9 gm/dl (6.4-8.2)
[2020-03-29] MEDS: HEPARIN SOD 5,000 UNIT/0.5 ML VIAL SQ SCH ×2 (09:01→20:17)
[2020-03-29] MEDS: ASPIRIN 81 MG ECTAB PO SCH (09:02)
[2020-03-29] MEDS: CHOLECALCIFEROL 1,000 UNITS 25 MCG TAB PO SCH (09:02)
[2020-03-29] MEDS: INSULIN ASPART 100 UNITS/ML 3 ML PEN SC SCH ×4 (09:08→20:47)
--- NOTE | 2020-03-29 10:19 | Hospitalist Progress Note ---
Date of Service March 29, 2020 Assessment & Plan (1) AMS (altered mental status): Gregor Cash is a 79yo male with a PMH of DM2, HTN, HLD, and vascular dementia who presented with confusion, found to have a UTI on admission. Goals of care discussion -attending participated in discussion with patient 03/26/20 -regarding his health, patient believes that his cancer is untreatable (via anecdotal experiences), so he does not see the benefit of treatment -palliative care discussion ongoing -working with case management re: placement Altered mental status -mild memory deficits likely chronic -likely metabolic encephalopathy secondary to UTI; other possible contributing factors include history of vascular dementia -has a few-month history of forgetfulness per PCP notes, episode of getting lost last week per family -CT head negative for acute bleed, CXR negative for findings suspicious of infection but with incidental nodules found -MRI brain notable for microangiopathic disease, negative for metastatic disease -will treat UTI as below -speech therapy consult 03/26/20: severe cognitive deficits in executive function and short term recall withpoor insight -Office of Aging involved -BMP qAM Groin mass -newly discovered as of 03/25/20, but based on size and appearance, likely has been present for a long time -not in previously documented records -patient has refused workup or physical exam/evaluation UTI -UA with nitrites, 2+ blood, 1+ leuk esterase, WBC>30, hyaline casts, 4+ bacteria -culture growing gram negative bacilli; pansensitive E coli -hemodynamically stable and afebrile -WBC on admission 20.2, down to 6.5 today (03/29/2020) -continue ceftriaxone IV, discontinue tomorrow (03/30/2020) as day 7 of treatment -NSS @ 80mL/hr -CBC qAM Lung nodules -incidental finding on CXR -CT chest: 1.7cm right upper lobe spiculated nodule suspicious for primary bronchogenic pulmonary malignancy -focal density in lateral aspect of right middle lobe 4.7x1.2cm and 1.4cm cystic nodule in right lower lobe -60+ pack year smoking history -ROS per pulmonology positive for unintentional weight loss and ongoing cough -patient reports he does not want further workup for potential cancer (see pulmonology note for further details of discussion) -question of patient's capacity; conversation ongoing -lateral shift of LFTs from 03/27 to 03/28; continue to monitor DM2 -A1c 7.7 on admission -BSG premeal and qhs -holding metformin -c/w glargine 10u sq qhs, ISS OPAL: resolved HLD -continue simvastatin HTN -holding home lisinopril FENGI: diabetic diet, NSS@80mL/hr DVT ppx: heparin 5000u sq qd Code status: full code Dispo: med/surg, discharge pending placement (2) Lung nodule, multiple: Mr. Cash is a 79 yo gentleman who was admitted to the hospital on 03/12/30 for evaluation of altered mental status. The cause of his AMS is thought to be metabolic, as he is septic from a urinary tract infection. As part of his sepsis work-up a CXR was obtained, which incidentally noted a right upper lobe nodule. CT scan of chest was then obtained for further characterization, which revealed a 1.7 cm spiculated nodule within the right upper lobe, the appearance of which was highly suspicious for a primary bronchogenic malignancy. Additionally, a focal density within the lateral segment of the right middle lobe (measuring 4.7 x 1.2 cm) with an irregular or spiculated appearance was noted, as was a 1.4 cm cystic nodule was identified in the right lower lobe - radiology noted the latter may a developing low-grade adenocarcinoma. - patient with 60+ pack year history of tobacco use - review of systems was positive for B symptoms (unintentional weight loss) and ongoing cough - collectively, the radiographic findings and clinical picture are certainly concerning for pulmonary malignancy - The radiographic findings were reviewed with Mr. Cash and the concern for a likely lung cancer diagnosis was expressed to him. Mr. Cash stated that he is unsure whether he would want to undergo further testing to determine if the nodules were, in fact, cancerous. He said, "at my age, even if it is cancer, I would not want to mess with it." When asked if he is aware that untreated cancer could kill him, he replied "what's the difference? Something eventually will." - In the event Mr. Cash were to desire further work-up, I would recommend he start with a PET scan, which can be arranged as an outpatient (3) Diabetes type 2, uncontrolled: (4) Forgetfulness: (5) Left groin mass: (6) Acute kidney injury: (7) Dyslipidemia: (8) Acute UTI (urinary tract infection): Gregor Cash is a 79yo male with a PMH of DM2, HTN, HLD, and vascular dementia who brought to the ED after he was noted to be confused at an office appointment, found to have a UTI on admission. no new concerns 03/26/20 waiting on f/u w/ case management 03/27/20 Altered mental status -likely metabolic encephalopathy secondary to UTI (see below); other possible contributing factors include history of vascular dementia -has a few-month history of forgetfulness per PCP notes, episode of getting lost last week per family -CT head negative for acute bleed, CXR negative for findings suspicious of infection but with incidental nodules found -MRI brain notable for microangiopathic disease, negative for metastatic disease -will treat UTI as below -speech therapy consult for cognitive assessment; Office of Aging involved -case management consulted -BMP qAM UTI -UA with nitrites, 2+ blood, 1+ leuk esterase, WBC>30, hyaline casts, 4+ bacteria -culture growing gram negative bacilli; sensitivities pending -hemodynamically stable and afebrile -WBC on admission 20.2 improved to 15.1 yesterday, further improved to 9.1 today -remains asymptomatic from a perspective -c/w ceftriaxone IV -NSS @ 80mL/hr -CBC qAM Lung nodules -incidental finding on CXR -CT chest: 1.7cm right upper lobe spiculated nodule suspicious for primary bronchogenic pulmonary malignancy -focal density in lateral aspect of right middle lobe 4.7x1.2cm and 1.4cm cystic nodule in right lower lobe -60+ pack year smoking history -ROS per pulmonology positive for unintentional weight loss and ongoing cough -patient reports he does not want further workup for potential cancer (see pulmonology note for further details of discussion) -question of patient's capacity; will reassess as UTI is treated and confu christiane hopefully clears DM2 -glucose 359 upon admission -A1c 7.7 on admission -BSG premeal and qhs -holding metformin -c/w glargine 10u sq qhs, ISS -diabetic diet OPAL: resolved -BUN/Cr on admission elevated to 65/1.49; BUN remains elevated at 60, Cr improved to 0.86 today with IVF and PO HLD -c/w simvastatin HTN -holding home lisinopril due to OPAL and pressures within range during visit FENGI: diabetic diet, NSS@80mL/hr DVT ppx: heparin 5000u sq qd Code status: full code Dispo: med/surg (9) Goals of care, counseling/discussion: Admission and Anticipated Discharge Date Admission Date: March 22, 2020 Supervising Physician Co-Signing Physician Notes I personally examined the patient and verified all iglesias points of history and exam, discussed case, and agree with decision making with Dr Mensah main complaints are rash on baack and dry feet. also amenable to me examining neck lumps and groin lesion vitals noted nad heent nc at mmm superficial neck lesions c/w lipoma or sebacious cyst. L groin black heaped but somewhat soft lesion - ?large shane K in warm moist area? breathing unlabored no accessory muscles good effort skin no rashes no pallor or icterus. scattered blotchy rash on back feet dry and cracked delirium on dementia - ?dehydration vs UTI - doing better; baseline dementia concerning - working on placement options for now rehab focused although as dementia progresses he may eventually need correction as well skin rash / dry feet - eucerin qid lung ca - doesn't want treatment otherwise as above Subjective Patient seen at bedside this morning. AOx3 this morning. Patient feels well and reports no symptoms. Patient endorses frustration that his insulin regimen is different in the hospital compared to when he is at home. Reports his appetite is good. Patient has no additional concerns or complaints at this time. Review of Systems Constitutional: no fever, no chills and no fatigue Respiratory: no cough and no dyspnea Cardiovascular: no chest pain, no dyspnea on exertion, no palpitations and no lightheadedness Gastrointestinal: no abdominal pain, no nausea, no vomiting, no constipation and no diarrhea/loose stools Genitourinary: no dysuria Physical Exam Constitutional: cooperative and comfortable; no acute distress Respiratory: no respiratory distress and no labored breathing mild expiratory wheezes heard in all lung rodríguez, no crackles rales or rhonchi appreciated Cardiovascular: Rate/Rhythm: regular rate and regular rhythm Extremities: no edema Psychiatric: Orientation: alert and oriented x 3 Apperance: appropriately groomed Thought Content: + preoccupation (regarding insulin regimen) Results & Data Results & Data ([facility]) Vital Signs (Past 12 Hours) Vital Signs Temp Pulse Resp BP BP Pulse Ox 03/29/20 07:24 36.9 C 63 18 143/65 H 93 03/28/20 23:08 36.6 C 66 16 127/65 93 Resident Activity Tracking Resident Involvement: Resident Care Provided Care Provided: Adult Hospital Medicine
--- NOTE | 2020-03-29 11:44 | Pharmacy Report ---
Pharmacy Glycemic Short Note 2 - Date of Service March 29, 2020 - Glycemic Short BSG Results (Last 24 hours): 03/28/20 03/28/20 03/28/20 12:27 17:05 20:07 Glucose POC Glucose 148 H 104 H 207 H 03/29/20 03/29/20 06:36 08:02 Glucose 148 H POC Glucose 161 H OUTPATIENT ANTIDIABETIC REGIMEN: * Lantus 8-10 units HS, novolog 3 units TID meals with SSI ASSESSMENT: 03/29 * Patient received total of 53 units of insulin yesterday, of which 20 were basal insulin * Fasting BSG 148 mg/dL - plan to continue with same basal insulin * Continue same CF/CR as BSGs stable w/in last 24 hours PLAN FOR INPATIENT GLYCEMIC CONTROL: * Hold outpatient oral diabetes medications * Basal insulin * Lantus 20 units daily with dinner * Bolus insulin * NovoLog per scale ACHS or Q6hrs while NPO * Goal Range: Low 110 mg/dL - High 140 mg/dL * Correction Factor: 20 mg/dL/unit * Nutritional / Prandial insulin per carb ratio of 1 unit per 6 grams CHO consumed PLAN FOR DISCHARGE: * A1c 7.7% - reasonable goal <8% * Patient follows [facility], last appt 03/22 at which he presented with confusion and referred to hospital to be seen. Per notes, patient cannot report whether he is taking insulin at home or not, he is not testing BSGs and refuses to keep a blood sugar log. He lives alone. Notes state he has had frequent hypoglycemia in the past * DM educator met with patient and discussed more of a balanced food intake/possibly adding a nutritional supplement as PO intake poor at home * Would favor continuing home insulin regimen due to variable PO intake noted outpatient. Would continue Lantus 10 units with novolog 3 units TIDM + SSI. Patient ultimately needs monitored outpatient closely. Would stress monitoring of BSGs. Would encourage some supervision/assistance with insulin at home if available by caregivers
[2020-03-29] MEDS: cefTRIAXone SODIUM 1,000 MG in DEXTROSE 5% 50 ML IV SCH (16:33)
[2020-03-29] MEDS: INSULIN GLARGINE SOLOSTAR 100 UNITS/ML 3 ML PEN SQ SCH (18:02)
--- NOTE | 2020-03-29 18:08 | Billing Data ---
Date of Service March 29, 2020 Coding Level of Care Code 03727 Subseq Hosp Care Lvl 2
[2020-03-29] MEDS: EUCERIN CR 120 GM JAR EXT SCH (20:16)
[2020-03-29] MEDS: SIMVASTATIN 40 MG TAB PO SCH (20:17)
[2020-03-29] MEDS: CARBOHYDRATES FOR HYPOGLYCEMIA PO PRN ×2 (20:38→20:55)
[2020-03-30] MEDS: SODIUM CHLORIDE 0.9% 1000ML 1,000 ML IV SCH ×2 (02:21→14:41)
[2020-03-30] MEDS: ACETAMINOPHEN 325 MG TAB PO PRN ×2 (02:23→09:13)
[2020-03-30 07:34] LABS: Basophils # (auto) 0.02 K/uL (0-0.2); Basophils % (auto) 0.3 %; Eosinophils # (auto) 0.11 K/uL (0-0.5); Eosinophils % (auto) 1.6 %; Hematocrit (blood only) 33.1 % (42-52); Hemoglobin 10.9 g/dL (14.0-18.0); Immature Granulocytes # (auto) 0.07 K/uL (0.00-0.02); Lymphocytes # (auto) 1.14 K/uL (1.2-3.4); Mean Corpuscular Hemoglobin 32.6 pg (25-34); Mean Corpuscular Hgb Conc 32.9 g/dL (32-36); Mean Corpuscular Volume 99.1 fL (80-100); Mean Platelet Volume 10.3 fL (7.4-10.4); Monocytes # (auto) 0.46 K/uL (0.11-0.59); Monocytes % (auto) 6.9 %; Neutrophils # (auto) 4.89 K/uL (1.4-6.5); Neutrophils % (auto) 73.2 %; Platelet Count 243 K/uL (130-400); RDW Coefficient of Variation 15.4 % (11.5-14.5); Red Blood Count 3.34 M/uL (4.7-6.1); White Blood Count 6.69 K/uL (4.8-10.8)
[2020-03-30 08:15] LABS: Albumin Level 1.8 gm/dl (3.4-5.0); BUN Creatinine Ratio 41.6 (10-20); Calcium 7.7 mg/dl (8.5-10.1); Creatinine Clr Calc Pharmacy 63.5 ml/min; Est GFR (Non-African American) 88.8; Potassium 4.4 mmol/L (3.5-5.1)
[2020-03-30 08:18] LABS: Albumin Globulin Ratio 0.6 (0.9-2); Bilirubin,Total 0.3 mg/dl (0.2-1); Phosphorus 3.2 mg/dl (2.5-4.9); Total Protein 4.8 gm/dl (6.4-8.2)
[2020-03-30] MEDS: CHOLECALCIFEROL 1,000 UNITS 25 MCG TAB PO SCH (08:57)
[2020-03-30] MEDS: HEPARIN SOD 5,000 UNIT/0.5 ML VIAL SQ SCH ×2 (08:57→20:13)
[2020-03-30] MEDS: ASPIRIN 81 MG ECTAB PO SCH (08:57)
[2020-03-30] MEDS: EUCERIN CR 120 GM JAR EXT SCH ×4 (08:58→20:13)
[2020-03-30] MEDS: INSULIN ASPART 100 UNITS/ML 3 ML PEN SC SCH ×4 (09:01→20:39)
[2020-03-30] MEDS: cefTRIAXone SODIUM 1,000 MG in DEXTROSE 5% 50 ML IV SCH (16:50)
[2020-03-30] MEDS: INSULIN GLARGINE SOLOSTAR 100 UNITS/ML 3 ML PEN SQ SCH (18:13)
--- NOTE | 2020-03-30 19:22 | Hospitalist Progress Note ---
Date of Service March 30, 2020 Assessment & Plan (1) AMS (altered mental status): Gregor Cash is a 79yo male with a PMH of DM2, HTN, HLD, and vascular dementia who presented with confusion, found to have a UTI on admission. Goals of care discussion -attending participated in discussion with patient 03/26/20 -regarding his health, patient believes that his cancer is untreatable (via anecdotal experiences), so he does not see the benefit of treatment -palliative care discussion ongoing -working with case management re: placement Altered mental status -mild memory deficits likely chronic -likely metabolic encephalopathy secondary to UTI; other possible contributing factors include history of vascular dementia -has a few-month history of forgetfulness per PCP notes, episode of getting lost last week per family -CT head negative for acute bleed, CXR negative for findings suspicious of infection but with incidental nodules found -MRI brain notable for microangiopathic disease, negative for metastatic disease -will treat UTI as below -speech therapy consult 03/26/20: severe cognitive deficits in executive function and short term recall withpoor insight -Office of Aging involved -BMP qAM Groin mass -newly discovered as of 03/25/20, but based on size and appearance, likely has been present for a long time -not in previously documented records -patient has refused workup or physical exam/evaluation UTI -UA with nitrites, 2+ blood, 1+ leuk esterase, WBC>30, hyaline casts, 4+ bacteria -culture growing gram negative bacilli; pansensitive E coli -hemodynamically stable and afebrile -WBC on admission 20.2, down to 6.5 today (03/29/2020) -continue ceftriaxone IV, discontinue tomorrow (03/30/2020) as day 7 of treatment -NSS @ 80mL/hr -CBC qAM Lung nodules -incidental finding on CXR -CT chest: 1.7cm right upper lobe spiculated nodule suspicious for primary bronchogenic pulmonary malignancy -focal density in lateral aspect of right middle lobe 4.7x1.2cm and 1.4cm cystic nodule in right lower lobe -60+ pack year smoking history -ROS per pulmonology positive for unintentional weight loss and ongoing cough -patient reports he does not want further workup for potential cancer (see pulmonology note for further details of discussion) -question of patient's capacity; conversation ongoing -lateral shift of LFTs from 03/27 to 03/28; continue to monitor DM2 -A1c 7.7 on admission -BSG premeal and qhs -holding metformin -c/w glargine 10u sq qhs, ISS OPAL: resolved HLD -continue simvastatin HTN -holding home lisinopril FENGI: diabetic diet, NSS@80mL/hr DVT ppx: heparin 5000u sq qd Code status: full code Dispo: med/surg, discharge pending placement (2) Lung nodule, multiple: Mr. Cash is a 79 yo gentleman who was admitted to the hospital on 03/12/30 for evaluation of altered mental status. The cause of his AMS is thought to be metabolic, as he is septic from a urinary tract infection. As part of his sepsis work-up a CXR was obtained, which incidentally noted a right upper lobe nodule. CT scan of chest was then obtained for further characterization, which revealed a 1.7 cm spiculated nodule within the right upper lobe, the appearance of which was highly suspicious for a primary bronchogenic malignancy. Additionally, a focal density within the lateral segment of the right middle lobe (measuring 4.7 x 1.2 cm) with an irregular or spiculated appearance was noted, as was a 1.4 cm cystic nodule was identified in the right lower lobe - radiology noted the latter may a developing low-grade adenocarcinoma. - patient with 60+ pack year history of tobacco use - review of systems was positive for B symptoms (unintentional weight loss) and ongoing cough - collectively, the radiographic findings and clinical picture are certainly concerning for pulmonary malignancy - The radiographic findings were reviewed with Mr. Cash and the concern for a likely lung cancer diagnosis was expressed to him. Mr. Cash stated that he is unsure whether he would want to undergo further testing to determine if the nodules were, in fact, cancerous. He said, "at my age, even if it is cancer, I would not want to mess with it." When asked if he is aware that untreated cancer could kill him, he replied "what's the difference? Something eventually will." - In the event Mr. Cash were to desire further work-up, I would recommend he start with a PET scan, which can be arranged as an outpatient (3) Diabetes type 2, uncontrolled: (4) Forgetfulness: (5) Left groin mass: (6) Acute kidney injury: (7) Dyslipidemia: (8) Acute UTI (urinary tract infection): Gregor Cash is a 79yo male with a PMH of DM2, HTN, HLD, and vascular dementia who brought to the ED after he was noted to be confused at an office appointment, found to have a UTI on admission. no new concerns 03/26/20 waiting on f/u w/ case management 03/27/20 Altered mental status -likely metabolic encephalopathy secondary to UTI (see below); other possible contributing factors include history of vascular dementia -has a few-month history of forgetfulness per PCP notes, episode of getting lost last week per family -CT head negative for acute bleed, CXR negative for findings suspicious of infection but with incidental nodules found -MRI brain notable for microangiopathic disease, negative for metastatic disease -will treat UTI as below -speech therapy consult for cognitive assessment; Office of Aging involved -case management consulted -BMP qAM UTI -UA with nitrites, 2+ blood, 1+ leuk esterase, WBC>30, hyaline casts, 4+ bacteria -culture growing gram negative bacilli; sensitivities pending -hemodynamically stable and afebrile -WBC on admission 20.2 improved to 15.1 yesterday, further improved to 9.1 today -remains asymptomatic from a perspective -c/w ceftriaxone IV -NSS @ 80mL/hr -CBC qAM Lung nodules -incidental finding on CXR -CT chest: 1.7cm right upper lobe spiculated nodule suspicious for primary bronchogenic pulmonary malignancy -focal density in lateral aspect of right middle lobe 4.7x1.2cm and 1.4cm cystic nodule in right lower lobe -60+ pack year smoking history -ROS per pulmonology positive for unintentional weight loss and ongoing cough -patient reports he does not want further workup for potential cancer (see pulmonology note for further details of discussion) -question of patient's capacity; will reassess as UTI is treated and confu christiane hopefully clears DM2 -glucose 359 upon admission -A1c 7.7 on admission -BSG premeal and qhs -holding metformin -c/w glargine 10u sq qhs, ISS -diabetic diet OPAL: resolved -BUN/Cr on admission elevated to 65/1.49; BUN remains elevated at 60, Cr improved to 0.86 today with IVF and PO HLD -c/w simvastatin HTN -holding home lisinopril due to OPAL and pressures within range during visit FENGI: diabetic diet, NSS@80mL/hr DVT ppx: heparin 5000u sq qd Code status: full code Dispo: med/surg (9) Goals of care, counseling/discussion: Admission and Anticipated Discharge Date Admission Date: March 22, 2020 Supervising Physician Co-Signing Physician Notes I personally examined the patient and verified all iglesias points of history and exam, discussed case, and agree with decision making with Dr Mensah no complaints today. updated dtr as well. still working on placement vitals noted nad heent nc at mmm breathing unlabored no accessory muscles good effort skin no rashes no pallor or icterus. feet less dry. delirium on dementia - ?dehydration vs UTI - doing better; baseline dementia concerning - short term/rehab based placement options being explored skin rash / dry feet - eucerin qid - improved lung ca - doesn't want treatment otherwise as above Subjective Patient seen at bedside this morning. Continues to have no complaints. Denies chest pain, shortness of breath, headache, lightheadedness, dizziness, nausea, vomiting, constipation, diarrhea, or other acute complaints. Awaiting placement back home. AOx3 today. Review of Systems Constitutional: as per Subjective / HPI Physical Exam Constitutional: cooperative and comfortable; no acute distress and not ill appearing Respiratory: normal respiratory effort; no labored breathing Auscultation: + wheezes Cardiovascular: RRR, no murmur, no edema Gastrointestinal (Abdomen): normal bowel sounds, soft, nontender, no hepatosplenomegaly Neurologic: awake Psychiatric: Orientation: alert, oriented x 3 and cooperative Apperance: appropriately groomed Eye Contact: good eye contact Speech: normal rate/rhythm/volume of speech Thought Content: + preoccupation (regarding insulin regimen) Cognition: + recent memory not intact Results & Data Results & Data ([facility]) Vital Signs (Past 12 Hours) Vital Signs Temp Pulse Resp BP Pulse Ox 03/30/20 15:20 37.3 C 72 18 145/70 H 94 Resident Activity Tracking Resident Involvement: Resident Care Provided Care Provided: Adult [facility] Medicine
[2020-03-30] MEDS: SIMVASTATIN 40 MG TAB PO SCH (20:13)
--- NOTE | 2020-03-30 20:25 | Billing Data ---
Date of Service March 30, 2020 Coding Level of Care Code 20413 Subseq Hosp Care Lvl 2
[2020-03-31] MEDS: SODIUM CHLORIDE 0.9% 1000ML 1,000 ML IV SCH ×2 (02:22→14:37)
[2020-03-31 06:11] LABS: Basophils # (auto) 0.04 K/uL (0-0.2); Basophils % (auto) 0.5 %; Eosinophils # (auto) 0.09 K/uL (0-0.5); Eosinophils % (auto) 1.2 %; Hematocrit (blood only) 34.9 % (42-52); Hemoglobin 11.4 g/dL (14.0-18.0); Immature Granulocytes # (auto) 0.07 K/uL (0.00-0.02); Immature Granulocytes % (auto) 0.9 %; Lymphocytes # (auto) 0.94 K/uL (1.2-3.4); Lymphocytes % (auto) 12.2 %; Mean Corpuscular Hemoglobin 32.6 pg (25-34); Mean Corpuscular Hgb Conc 32.7 g/dL (32-36); Mean Corpuscular Volume 99.7 fL (80-100); Mean Platelet Volume 9.8 fL (7.4-10.4); Monocytes % (auto) 6.5 %; Neutrophils # (auto) 6.07 K/uL (1.4-6.5); Neutrophils % (auto) 78.7 %; Platelet Count 240 K/uL (130-400); RDW Coefficient of Variation 15.4 % (11.5-14.5); RDW Standard Deviation 55.6 fL (36.4-46.3); White Blood Count 7.71 K/uL (4.8-10.8)
[2020-03-31 07:06] LABS: BUN Creatinine Ratio 43.8 (10-20); Calcium 7.7 mg/dl (8.5-10.1); Creatinine Clr Calc Pharmacy 64.3 ml/min; Est GFR (African American) 103.6; Est GFR (Non-African American) 89.3; Potassium 3.9 mmol/L (3.5-5.1)
[2020-03-31] MEDS: CARBOHYDRATES FOR HYPOGLYCEMIA PO PRN (07:12)
[2020-03-31] MEDS: HEPARIN SOD 5,000 UNIT/0.5 ML VIAL SQ SCH ×2 (09:16→20:30)
[2020-03-31] MEDS: ASPIRIN 81 MG ECTAB PO SCH (09:16)
[2020-03-31] MEDS: CHOLECALCIFEROL 1,000 UNITS 25 MCG TAB PO SCH (09:16)
[2020-03-31] MEDS: INSULIN ASPART 100 UNITS/ML 3 ML PEN SC SCH ×4 (09:17→20:34)
[2020-03-31] MEDS: EUCERIN CR 120 GM JAR EXT SCH ×4 (09:23→20:31)
--- NOTE | 2020-03-31 14:17 | Pharmacy Report ---
Pharmacy Glycemic Short Note 2 - Date of Service March 31, 2020 - Glycemic Short BSG Results (Last 24 hours): 03/30/20 03/30/20 03/31/20 16:50 20:16 05:51 Glucose 53 L* POC Glucose 110 H 127 H 03/31/20 03/31/20 03/31/20 07:08 07:30 11:48 Glucose POC Glucose 65 L* 96 99 OUTPATIENT ANTIDIABETIC REGIMEN: * Lantus 8-10 units HS, novolog 3 units TID meals with SSI ASSESSMENT: 03/31 * Patient received total of 48 units of insulin yesterday, of which 20 were basal * Fasting BSG lower end of range 65 mg/dL - treated per hypoglycemia protocol and on recheck 96 mg/dL. Lower BSG likely related to too much basal, will cut dosing in half and titrate back up if needed * Loosened CR at lunch as BSGs still on lower end of range PLAN FOR INPATIENT GLYCEMIC CONTROL: * Hold outpatient oral diabetes medications * Basal insulin - decrease * Lantus 10 units HS * Bolus insulin * NovoLog per scale ACHS or Q6hrs while NPO * Goal Range: Low 110 mg/dL - High 140 mg/dL * Correction Factor: 30 mg/dL/unit * Nutritional / Prandial insulin per carb ratio of 1 unit per 15 grams CHO consumed PLAN FOR DISCHARGE: * A1c 7.7% - reasonable goal <8% * Patient follows [facility], last appt 03/22 at which he presented with confusion and referred to hospital to be seen. Per notes, patient cannot report whether he is taking insulin at home or not, he is not testing BSGs and refuses to keep a blood sugar log. He lives alone. Notes state he has had frequent hypoglycemia in the past * DM educator met with patient and discussed more of a balanced food intake/possibly adding a nutritional supplement as PO intake poor at home * Would favor continuing home insulin regimen due to variable PO intake noted outpatient. Would continue Lantus 10 units with novolog 3 units TIDM + SSI. Patient ultimately needs monitored outpatient closely. Would stress monitoring of BSGs. Would encourage some supervision/assistance with insulin at home if available by caregivers
--- NOTE | 2020-03-31 16:05 | Hospitalist Progress Note ---
Date of Service March 31, 2020 Assessment & Plan (1) AMS (altered mental status): Gregor Cash is a 79yo male with a PMH of DM2, HTN, HLD, and vascular dementia who presented with confusion, found to have a UTI on admission. Goals of care discussion -attending participated in discussion with patient 03/26/20 -regarding his health, patient believes that his cancer is untreatable (via anecdotal experiences), so he does not see the benefit of treatment -palliative care discussion ongoing -working with case management re: placement Altered mental status -mild memory deficits likely chronic -likely metabolic encephalopathy secondary to UTI; other possible contributing factors include history of vascular dementia -has a few-month history of forgetfulness per PCP notes, episode of getting lost last week per family -CT head negative for acute bleed, CXR negative for findings suspicious of infection but with incidental nodules found -MRI brain notable for microangiopathic disease, negative for metastatic disease -will treat UTI as below -speech therapy consult 03/26/20: severe cognitive deficits in executive function and short term recall withpoor insight -Office of Aging involved -BMP qAM Groin mass -newly discovered as of 03/25/20, but based on size and appearance, likely has been present for a long time -not in previously documented records -patient has refused workup or physical exam/evaluation UTI -UA with nitrites, 2+ blood, 1+ leuk esterase, WBC>30, hyaline casts, 4+ bacteria -culture growing gram negative bacilli; pansensitive E coli -hemodynamically stable and afebrile -WBC wnl -discontinuing ceftriaxone -CBC qAM Lung nodules -incidental finding on CXR -CT chest: 1.7cm right upper lobe spiculated nodule suspicious for primary bron chogenic pulmonary malignancy -focal density in lateral aspect of right middle lobe 4.7x1.2cm and 1.4cm cystic nodule in right lower lobe -60+ pack year smoking history -ROS per pulmonology positive for unintentional weight loss and ongoing cough -patient reports he does not want further workup for potential cancer (see pulmonology note for further details of discussion) -question of patient's capacity; conversation ongoing -CMP qAM DM2 -A1c 7.7 on admission -BSG premeal and qhs -holding metformin -c/w glargine 10u sq qhs, ISS OPAL: resolved HLD -continue simvastatin HTN -holding home lisinopril FENGI: diabetic diet DVT ppx: heparin 5000u sq qd Code status: full code Dispo: med/surg, discharge pending placement (2) Diabetes type 2, uncontrolled: (3) Forgetfulness: (4) Left groin mass: (5) Acute kidney injury: (6) Dyslipidemia: (7) Goals of care, counseling/discussion: Admission and Anticipated Discharge Date Admission Date: March 22, 2020 Supervising Physician Co-Signing Physician Notes I personally examined the patient and verified all iglesias points of history and exam, discussed case, and agree with decision making with Dr Mensah no complaints today. still waiting on placement vitals noted nad heent nc at mmm breathing unlabored no accessory muscles good effort skin no rashes no pallor or icterus. feet less dry. delirium on dementia - ?dehydration vs UTI - doing better; baseline dementia concerning - short term/rehab based placement options being explored skin rash / dry feet - eucerin qid - improved lung ca - doesn't want treatment otherwise as above Subjective Patient seen at bedside. He continues to have no complaints. Denies CP, SOB, headache, lightheadedness, dizziness, nausea, vomiting, constipation, diarrhea, or other acute complaints. Case management is still working on placement. AOx3. Review of Systems Constitutional: as per Subjective / HPI Physical Exam Constitutional: cooperative and comfortable; no acute distress and not ill appearing Respiratory: normal respiratory effort; no labored breathing Auscultation: + wheezes Cardiovascular: RRR, no murmur, no edema Rate/Rhythm: regular rate and regular rhythm Extremities: no edema Gastrointestinal (Abdomen): normal bowel sounds, soft, nontender, no hepatosplenomegaly Neurologic: awake Psychiatric: Orientation: alert, oriented x 3 and cooperative Apperance: appropriately groomed Eye Contact: good eye contact Speech: normal rate/rhythm/volume of speech Results & Data Results & Data ([facility]) Vital Signs (Past 12 Hours) Vital Signs Temp Pulse Resp BP BP Pulse Ox 03/31/20 15:58 36.7 C 71 16 131/63 93 03/31/20 12:15 36.4 C L 65 20 152/80 H 94 03/31/20 07:40 36.6 C 58 L 18 124/64 94 Resident Activity Tracking Resident Involvement: Resident Care Provided Care Provided: Adult Hospital Medicine
[2020-03-31] MEDS ORDERED: INSULIN GLARGINE SOLOSTAR 100 UNITS/ML 3 ML PEN SQ SCH (18:00)
[2020-03-31] MEDS: MAGNESIUM HYDROXIDE SUSP 30 ML UDC PO PRN (18:30)
--- NOTE | 2020-03-31 19:21 | Billing Data ---
Date of Service March 31, 2020 Coding Level of Care Code 31128 Subseq Hosp Care Lvl 1
[2020-03-31] MEDS: SIMVASTATIN 40 MG TAB PO SCH (20:30)
[2020-03-31] MEDS: INSULIN GLARGINE SOLOSTAR 100 UNITS/ML 3 ML PEN SQ SCH (20:33)
[2020-04-01] MEDS: SODIUM CHLORIDE 0.9% 1000ML 1,000 ML IV SCH ×2 (02:30→14:01)
[2020-04-01 08:36] LABS: Basophils # (auto) 0.02 K/uL (0-0.2); Basophils % (auto) 0.3 %; Eosinophils # (auto) 0.19 K/uL (0-0.5); Eosinophils % (auto) 2.6 %; Hematocrit (blood only) 35.6 % (42-52); Hemoglobin 11.5 g/dL (14.0-18.0); Immature Granulocytes # (auto) 0.06 K/uL (0.00-0.02); Immature Granulocytes % (auto) 0.8 %; Lymphocytes # (auto) 0.87 K/uL (1.2-3.4); Lymphocytes % (auto) 11.8 %; Mean Corpuscular Hemoglobin 32.5 pg (25-34); Mean Corpuscular Hgb Conc 32.3 g/dL (32-36); Mean Corpuscular Volume 100.6 fL (80-100); Mean Platelet Volume 9.9 fL (7.4-10.4); Monocytes # (auto) 0.59 K/uL (0.11-0.59); Neutrophils # (auto) 5.64 K/uL (1.4-6.5); Neutrophils % (auto) 76.5 %; Platelet Count 286 K/uL (130-400); RDW Coefficient of Variation 15.8 % (11.5-14.5); RDW Standard Deviation 57.4 fL (36.4-46.3); Red Blood Count 3.54 M/uL (4.7-6.1); White Blood Count 7.37 K/uL (4.8-10.8)
[2020-04-01] MEDS: EUCERIN CR 120 GM JAR EXT SCH ×4 (09:13→20:42)
[2020-04-01] MEDS: HEPARIN SOD 5,000 UNIT/0.5 ML VIAL SQ SCH ×2 (09:13→20:38)
[2020-04-01] MEDS: CHOLECALCIFEROL 1,000 UNITS 25 MCG TAB PO SCH (09:13)
[2020-04-01] MEDS: ASPIRIN 81 MG ECTAB PO SCH (09:13)
[2020-04-01 09:15] LABS: Albumin Level 1.8 gm/dl (3.4-5.0); BUN Creatinine Ratio 42.5 (10-20); Calcium 7.9 mg/dl (8.5-10.1); Creatinine Clr Calc Pharmacy 67.1 ml/min; Est GFR (African American) 105.4; Est GFR (Non-African American) 90.9; Potassium 4.1 mmol/L (3.5-5.1)
[2020-04-01] MEDS: INSULIN ASPART 100 UNITS/ML 3 ML PEN SC SCH ×4 (09:15→20:37)
[2020-04-01 09:17] LABS: Albumin Globulin Ratio 0.6 (0.9-2); Bilirubin,Total 0.3 mg/dl (0.2-1); Globulin 2.9 gm/dl (2.5-4.0); Total Protein 4.7 gm/dl (6.4-8.2)
[2020-04-01] MEDS: MAGNESIUM HYDROXIDE SUSP 30 ML UDC PO PRN (12:53)
--- NOTE | 2020-04-01 14:24 | Hospitalist Progress Note ---
Date of Service April 01, 2020 Assessment & Plan (1) AMS (altered mental status): Gregor Cash is a 79yo male with a PMH of DM2, HTN, HLD, and vascular dementia who presented with confusion, found to have a UTI on admission. Goals of care discussion -attending participated in discussion with patient 03/26/20 -regarding his health, patient believes that his cancer is untreatable (via anecdotal experiences), so he does not see the benefit of treatment -palliative care discussion ongoing -continuing to work with case management re: placement -04/01/20: no complaints today, pending placement Altered mental status -mild memory deficits likely chronic -likely metabolic encephalopathy secondary to UTI; other possible contributing factors include history of vascular dementia -has a few-month history of forgetfulness per PCP notes, episode of getting lost last week per family -CT head negative for acute bleed, CXR negative for findings suspicious of infection but with incidental nodules found -MRI brain notable for microangiopathic disease, negative for metastatic disease -will treat UTI as below -speech therapy consult 03/26/20: severe cognitive deficits in executive function and short term recall withpoor insight -Office of Aging involved Groin mass -newly discovered as of 03/25/20, but based on size and appearance, likely has been present for a long time -not in previously documented records -patient has refused workup or physical exam/evaluation UTI -UA with nitrites, 2+ blood, 1+ leuk esterase, WBC>30, hyaline casts, 4+ bacteria -culture growing gram negative bacilli; pansensitive E coli -hemodynamically stable and afebrile -WBC wnl -discontinuing ceftriaxone -CBC qAM Lung nodules -incidental finding on CXR -CT chest: 1.7cm right upper lobe spiculated nodule suspicious for primary bronchogenic pulmonary malignancy -focal density in lateral aspect of right middle lobe 4.7x1.2cm and 1.4cm cystic nodule in right lower lobe -60+ pack year smoking history -ROS per pulmonology positive for unintentional weight loss and ongoing cough -patient reports he does not want further workup for potential cancer (see pulmonology note for further details of discussion) -question of patient's capacity; conversation ongoing -CMP qAM DM2 -A1c 7.7 on admission -BSG premeal and qhs -holding metformin -c/w glargine 10u sq qhs, ISS OPAL: resolved HLD -continue simvastatin HTN -holding home lisinopril FENGI: diabetic diet DVT ppx: heparin 5000u sq qd Code status: full code Dispo: med/surg, discharge pending placement (2) Diabetes type 2, uncontrolled: (3) Forgetfulness: (4) Left groin mass: (5) Acute kidney injury: (6) Dyslipidemia: (7) Goals of care, counseling/discussion: Admission and Anticipated Discharge Date Admission Date: March 22, 2020 Supervising Physician Co-Signing Physician Notes I personally examined the patient and verified all iglesias points of history and exam, discussed case, and agree with decision making with Dr Gilbert no issues noted today. still waiting on placement vitals noted nad heent nc at mmm breathing unlabored no accessory muscles good effort skin no rashes no pallor or icterus. feet less dry. delirium on dementia - ?dehydration vs UTI - doing better; baseline dementia concerning - short term/rehab based placement options being explored with significant barriers skin rash / dry feet - continue eucerin qid lung ca - doesn't want treatment otherwise as above Subjective Patient seen and evaluated at bedside. He has no complaints or concerns this morning. However, patient does state that he "needs to get out of here because there are things to do this afternoon." Specifically, patient states that he "needs to find [his] truck because the diabetes pens are in there and [he] needs to go run errands." However, patient is concerned about walking "because the shoes are too heavy when walking and [he] needs to be fitted for new shoes." Otherwise, patient denies fever, chills, CP, SOB, cough, abdominal pain, nausea, vomiting, or headache. He reports tolerating his diet well. Patient is still pending placement per CM. Review of Systems Review of Systems: Constitutional: Denies fever or chills Cardiovascular: Denies chest pain Respiratory: Denies shortness of breath or cough Gastrointestinal: Denies abdominal pain, nausea, vomiting, constipation, diarrhea Genitourinary: Denies urinary symptoms including dysuria Neurological: Denies headache Physical Exam Physical Exam: GENERAL: No acute distress. Patient is sitting in bed, eating breakfast, without difficulty or complaints. Vital signs reviewed. EYES: EOMI. HENT: Moist mucous membranes. RESPIRATORY: Clear to auscultation bilaterally. No wheezing, rales, or rhonchi. CARDIOVASCULAR: Regular rate and rhythm. No murmurs. ABDOMEN: Soft and non-tender. Normal bowel sounds. NEUROLOGIC: A/O to person, place, and year however he then displays confusion regarding situation and tasks he needs to accomplish today. Patient with normal speech. PSYCHIATRIC: Cooperative. Appropriate mood and affect. Results & Data Results & Data ([facility]) Vital Signs (Past 12 Hours) Vital Signs Temp Pulse Resp BP Pulse Ox 04/01/20 08:44 36.5 C 58 L 16 144/58 H 93 Resident Activity Tracking Resident Involvement: Resident Care Provided Care Provided: Adult Hospital Medicine
--- NOTE | 2020-04-01 18:59 | Billing Data ---
Date of Service April 01, 2020 Coding Level of Care Code 74729 Subseq Hosp Care Lvl 1
[2020-04-01] MEDS: INSULIN GLARGINE SOLOSTAR 100 UNITS/ML 3 ML PEN SQ SCH (20:37)
[2020-04-01] MEDS: SIMVASTATIN 40 MG TAB PO SCH (20:39)
[2020-04-02] MEDS: SODIUM CHLORIDE 0.9% 1000ML 1,000 ML IV SCH (02:09)
[2020-04-02 06:08] LABS: Basophils # (auto) 0.01 K/uL (0-0.2); Basophils % (auto) 0.1 %; Eosinophils # (auto) 0.17 K/uL (0-0.5); Eosinophils % (auto) 1.8 %; Hemoglobin 12.3 g/dL (14.0-18.0); Immature Granulocytes # (auto) 0.05 K/uL (0.00-0.02); Immature Granulocytes % (auto) 0.5 %; Lymphocytes # (auto) 1.31 K/uL (1.2-3.4); Lymphocytes % (auto) 13.6 %; Mean Corpuscular Hemoglobin 32.5 pg (25-34); Mean Corpuscular Hgb Conc 32.4 g/dL (32-36); Mean Corpuscular Volume 100.3 fL (80-100); Mean Platelet Volume 9.7 fL (7.4-10.4); Monocytes # (auto) 0.75 K/uL (0.11-0.59); Monocytes % (auto) 7.8 %; Neutrophils # (auto) 7.31 K/uL (1.4-6.5); Neutrophils % (auto) 76.2 %; Platelet Count 303 K/uL (130-400); RDW Coefficient of Variation 15.9 % (11.5-14.5); RDW Standard Deviation 56.9 fL (36.4-46.3); Red Blood Count 3.79 M/uL (4.7-6.1)
[2020-04-02 06:59] LABS: Albumin Globulin Ratio 0.6 (0.9-2); BUN Creatinine Ratio 48.2 (10-20); Bilirubin,Total 0.4 mg/dl (0.2-1); Calcium 7.7 mg/dl (8.5-10.1); Creatinine Clr Calc Pharmacy 67.1 ml/min; Est GFR (African American) 105.4; Est GFR (Non-African American) 90.9; Globulin 3.2 gm/dl (2.5-4.0); Potassium 4.1 mmol/L (3.5-5.1); Total Protein 5.2 gm/dl (6.4-8.2)
[2020-04-02] MEDS: CARBOHYDRATES FOR HYPOGLYCEMIA PO PRN (07:22)
[2020-04-02] MEDS: CHOLECALCIFEROL 1,000 UNITS 25 MCG TAB PO SCH (09:21)
[2020-04-02] MEDS: EUCERIN CR 120 GM JAR EXT SCH ×4 (09:21→20:37)
[2020-04-02] MEDS: ASPIRIN 81 MG ECTAB PO SCH (09:21)
[2020-04-02] MEDS: HEPARIN SOD 5,000 UNIT/0.5 ML VIAL SQ SCH ×2 (09:21→20:38)
[2020-04-02] MEDS: INSULIN ASPART 100 UNITS/ML 3 ML PEN SC SCH ×4 (09:22→18:55)
--- NOTE | 2020-04-02 09:56 | Hospitalist Progress Note ---
Date of Service April 02, 2020 Assessment & Plan (1) AMS (altered mental status): Gregor Cash is a 79yo male with a PMH of DM2, HTN, HLD, and vascular dementia who presented with confusion, found to have a UTI on admission. Goals of care discussion -attending participated in discussion with patient 03/26/20 -regarding his health, patient believes that his cancer is untreatable (via anecdotal experiences), so he does not see the benefit of treatment -palliative care discussion ongoing -continuing to work with case management re: placement -04/02/20: no complaints today, pending placement Altered mental status -mild memory deficits likely chronic -likely metabolic encephalopathy secondary to UTI; other possible contributing factors include history of vascular dementia - IVF for hydration, IVF discontinued 04/02/20 -has a few-month history of forgetfulness per PCP notes, episode of getting lost last week per family -CT head negative for acute bleed, CXR negative for findings suspicious of infec tion but with incidental nodules found -MRI brain notable for microangiopathic disease, negative for metastatic disease -will treat UTI as below -speech therapy consult 03/26/20: severe cognitive deficits in executive function and short term recall withpoor insight -Office of Aging involved Groin mass -newly discovered as of 03/25/20, but based on size and appearance, likely has been present for a long time -not in previously documented records -patient has refused workup or physical exam/evaluation UTI (resolved) -UA with nitrites, 2+ blood, 1+ leuk esterase, WBC>30, hyaline casts, 4+ bacteria -culture growing gram negative bacilli; pansensitive E coli -hemodynamically stable and afebrile -WBC wnl; discontinuing ceftriaxone Lung nodules -incidental finding on CXR -CT chest: 1.7cm right upper lobe spiculated nodule suspicious for primary bronchogenic pulmonary malignancy -focal density in lateral aspect of right middle lobe 4.7x1.2cm and 1.4cm cystic nodule in right lower lobe -60+ pack year smoking history -ROS per pulmonology positive for unintentional weight loss and ongoing cough -patient reports he does not want further workup for potential cancer (see pulmonology note for further details of discussion) -patient does not want further workup or treatment DM2 -A1c 7.7 on admission -BSG premeal and qhs -holding metformin -c/w glargine 10u sq qhs, ISS OPAL: resolved HLD -continue simvastatin HTN -holding home lisinopril FENGI: diabetic diet DVT ppx: heparin 5000u sq qd Code status: full code Dispo: med/surg, discharge pending placement (2) Diabetes type 2, uncontrolled: (3) Forgetfulness: (4) Left groin mass: (5) Acute kidney injury: (6) Dyslipidemia: (7) Goals of care, counseling/discussion: Admission and Anticipated Discharge Date Admission Date: March 22, 2020 Supervising Physician Co-Signing Physician Notes I personally examined the patient and verified all iglesias points of history and exam, discussed case, and agree with decision making with Dr Gilbert no issues identified today. still waiting on placement vitals noted nad heent nc at mmm breathing unlabored no accessory muscles good effort skin no rashes no pallor or icterus. eating lunch delirium on dementia - ?dehydration vs UTI - doing better; baseline dementia concerning - short term/rehab based placement options being explored with significant barriers skin rash / dry feet - continue eucerin qid DM - insulins reduced yesterday - still w low sugar - will stop lantus altogether lung ca - doesn't want treatment otherwise as above Subjective Patient seen and evaluated at bedside this morning. He has no new complaints or concerns. Patient does note that he feels the urge for a BM. Denies abd pain, CP , SOB, fever/chills. States he is eating well. Otherwise, still awaiting placement. Review of Systems Review of Systems: Constitutional: Denies fever or chills Cardiovascular: Denies chest pain Respiratory: Denies shortness of breath or cough Gastrointestinal: Denies abdominal pain or nausea Genitourinary: Denies urinary symptoms including dysuria Neurological: Denies headache Physical Exam Physical Exam: GENERAL: No acute distress. Patient is sitting in bed, eating breakfast, without difficulty or complaints. Vital signs reviewed. EYES: EOMI. HENT: Moist mucous membranes. RESPIRATORY: Normal respiratory effort. Able to speak in full sentences without increased work of breathing. ABDOMEN: Soft and non-tender. Non-distended. NEUROLOGIC: Confused. A/O to person, place, and time, but not situation. Patient with normal speech. PSYCHIATRIC: Cooperative. Appropriate mood and affect. Results & Data Results & Data ([facility]) Vital Signs (Past 12 Hours) Vital Signs Temp Pulse Resp BP BP Pulse Ox 04/02/20 07:33 36.3 C L 69 20 148/74 H 95 04/01/20 23:16 36.4 C L 64 138/69 93 Resident Activity Tracking Resident Involvement: Resident Care Provided Care Provided: Adult Hospital Medicine
--- NOTE | 2020-04-02 14:13 | Pharmacy Report ---
Pharmacy Glycemic Short Note 2 - Date of Service April 02, 2020 - Glycemic Short BSG Results (Last 24 hours): 04/01/20 04/01/20 04/02/20 17:10 20:33 05:55 Glucose 47 L* POC Glucose 173 H 173 H 04/02/20 04/02/20 04/02/20 07:20 07:37 10:06 Glucose POC Glucose 52 L* 78 141 H 04/02/20 12:16 Glucose POC Glucose 151 H OUTPATIENT ANTIDIABETIC REGIMEN: * Lantus 8-10 units HS, novolog 3 units TID meals with SSI ASSESSMENT: 04/02: * Gregor received 23 units of insulin yesterday (10 units of basal and 13 units of bolus) * He experienced AM hypoglycemia today (BSG 49 mg/dL) which was treated with 30 grams of carbohydrate. Basal insulin dose was decreased by 50% on 03/31 for fasting of 65 mg/dL. Fasting improved to 107-113 mg/dL on 04/01 therefore this dose was continued yesterday. Uncertain why fasting is below goal again. Will decrease another 50% and add a hold parameter so that dose is only administered if BSG is 150 mg/dL or more. * Post prandials were slightly above goal yesterday. Improved today. No change to Novolog parameters. I do not believe bolus insulin contributed to hypoglycemia but I will remove HS administration. 03/31 * Patient received total of 48 units of insulin yesterday, of which 20 were basal * Fasting BSG lower end of range 65 mg/dL - treated per hypoglycemia protocol and on recheck 96 mg/dL. Lower BSG likely related to too much basal, will cut dosing in half and titrate back up if needed * Loosened CR at lunch as BSGs still on lower end of range PLAN FOR INPATIENT GLYCEMIC CONTROL: * Hold outpatient oral diabetes medications * Basal insulin - decrease * Lantus 0-5 units HS (0 units for BSG < 150, 5 units for BSG 150 or more) * Bolus insulin * NovoLog per scale AC * Goal Range: Low 110 mg/dL - High 140 mg/dL * Correction Factor: 30 mg/dL/unit * Nutritional / Prandial insulin per carb ratio of 1 unit per 18 grams CHO consumed PLAN FOR DISCHARGE: * A1c 7.7% - reasonable goal <8% * Patient follows [facility], last appt 03/22 at which he presented with confusion and referred to hospital to be seen. Per notes, patient cannot report whether he is taking insulin at home or not, he is not testing BSGs and refuses to keep a blood sugar log. He lives alone. Notes state he has had frequent hypoglycemia in the past * DM educator met with patient and discussed more of a balanced food intake/possibly adding a nutritional supplement as PO intake poor at home * Would favor continuing home insulin regimen due to variable PO intake noted outpatient. Would continue Lantus 10 units with novolog 3 units TIDM + SSI. Patient ultimately needs monitored outpatient closely. Would stress monitoring of BSGs. Would encourage some supervision/assistance with insulin at home if available by caregivers
--- NOTE | 2020-04-02 18:37 | Billing Data ---
Date of Service April 02, 2020 Coding Level of Care Code 03061 Subseq Hosp Care Lvl 2
[2020-04-02] MEDS: SIMVASTATIN 40 MG TAB PO SCH (20:37)
[2020-04-02] MEDS ORDERED: INSULIN GLARGINE SOLOSTAR 100 UNITS/ML 3 ML PEN SQ SCH (21:00)
--- NOTE | 2020-04-03 07:44 | Hospitalist Progress Note ---
Date of Service April 03, 2020 Assessment & Plan (1) AMS (altered mental status): Gregor Cash is a 79yo male with a PMH of DM2, HTN, HLD, and vascular dementia who presented with confusion, found to have a UTI on admission. Constipation Patient has been endorsing symptoms of abdominal pain. Was alerted by nursing this morning the patient was complaining of abdominal pain, she was requesting escalation of pain medication. Upon evaluation the patient is room his abdomen appeared distended and tender. KUB was obtained demonstrating massive stool burden patient was started on constipation regimen. Ideally patient would benefit most from an enema, however per nursing he refused. -MiraLAX 34 g now -MiraLAX 17 g twice daily -Docusate at bedtime -If patient is agreeable would benefit from enema -Monitor for bowel movement Goals of care discussion -attending participated in discussion with patient 03/26/20 -regarding his health, patient believes that his cancer is untreatable (via anecdotal experiences), so he does not see the benefit of treatment -palliative care discussion ongoing -continuing to work with case management re: placement -04/02/20: no complaints today, pending placement -04/03/20: Doing well, no acute events overnight, pending placement Altered mental status -mild memory deficits likely chronic -likely metabolic encephalopathy secondary to UTI; other possible contributing factors include history of vascular dementia - IVF for hydration, IVF discontinued 04/02/20 -has a few-month history of forgetfulness per PCP notes, episode of getting lost last week per family -CT head negative for acute bleed, CXR negative for findings suspicious of infection but with incidental nodules found -MRI brain notable for microangiopathic disease, negative for metastatic disease -will treat UTI as below -speech therapy consult 03/26/20: severe cognitive deficits in executive function and short term recall with poor insight -Office of Aging involved Groin mass -newly discovered as of 03/25/20, but based on size and appearance, likely has been present for a long time -not in previously documented records -patient has refused workup or physical exam/evaluation UTI (resolved) -UA with nitrites, 2+ blood, 1+ leuk esterase, WBC>30, hyaline casts, 4+ bacteria -culture growing gram negative bacilli; pansensitive E coli -hemodynamically stable and afebrile -WBC wnl; discontinuing ceftriaxone Lung nodules -incidental finding on CXR -CT chest: 1.7cm right upper lobe spiculated nodule suspicious for primary bronchogenic pulmonary malignancy -focal density in lateral aspect of right middle lobe 4.7x1.2cm and 1.4cm cystic nodule in right lower lobe -60+ pack year smoking history -ROS per pulmonology positive for unintentional weight loss and ongoing cough -patient reports he does not want further workup for potential cancer (see pulmonology note for further details of discussion) -patient does not want further workup or treatment DM2 -A1c 7.7 on admission -BSG premeal and qhs -holding metformin -c/w glargine 10u sq qhs, ISS OPAL: resolved HLD -continue simvastatin HTN -holding home lisinopril FENGI: diabetic diet DVT ppx: heparin 5000u sq qd Code status: full code Dispo: med/surg, discharge pending placement (2) Diabetes type 2, uncontrolled: (3) Forgetfulness: (4) Left groin mass: (5) Acute kidney injury: (6) Dyslipidemia: (7) Goals of care, counseling/discussion: Admission and Anticipated Discharge Date Admission Date: March 22, 2020 Subjective Patient lying in bed this morning in no acute distress. Patient reports tolerating his diet, voiding, stooling, sleeping overnight. Patient has baseline dementia and reports that he is confused today stating that 1 hospitalist on 1 thing at another hospital is telling him another. Patient's nurse reports that he is doing well. All questions answered, no acute concerns, patient awaiting placement. Review of Systems Review of Systems: All systems reviewed & are unremarkable except as noted in HPI & below Physical Exam Physical Exam: General: Lying in bed in no acute distress HEENT: Normocephalic atraumatic Neck: Trachea midline normal to visual inspection Cardiac: Regular rate and rhythm I did not appreciate significant murmurs rubs or gallops, normal S1, normal S2, negative pedal edema, negative calf tenderness Respiratory: Clear to auscultation bilaterally with symmetrical chest expansion no increased work of breathing GI: Distended, tender, no rebound no guarding MSK: Moves all extremities Neuro: Confused Psych: Calm and cooperative although a bit confused Results & Data Results & Data ([facility]) Vital Signs (Past 12 Hours) Vital Signs Temp Pulse Resp BP Pulse Ox 04/03/20 00:06 36.9 C 72 16 155/77 H 93 Laboratory Results 04/02/20 04/02/20 04/02/20 Range/Units 20:32 17:02 12:16 POC Glucose 182 H 216 H 151 H (70-99) mg/dl 04/02/20 Range/Units 10:06 POC Glucose 141 H (70-99) mg/dl Medications Administered Current Inpatient Medications Acetaminophen (Acetaminophen 325 Mg Tab) 650 mg PO Q4H PRN PRN Reason: pain/fever Stop: 04/21/20 20:01 Last Admin: 03/30/20 09:13 Dose: 650 mg Documented by: Al Hydrox/Mg Hydrox/Simethicone (Aluminum/Magnesium Susp 30 Ml Udc) 30 ml PO Q6H PRN PRN Reason: Dyspepsia Stop: 04/21/20 20:01 Aspirin (Aspirin 81 Mg Ectab) 81 mg PO DAILY ABNER Stop: 04/22/20 08:59 Last Admin: 04/02/20 09:21 Dose: 81 mg Documented by: Dextrose (Dextrose 50% 50 Ml Syringe) 25 - 50 ml IV UD PRN; Protocol PRN Reason: Hypoglycemia Protocol Stop: 04/21/20 20:01 Glucagon (Glucagon For Inj 1 Mg Vial) 1 mg SQ UD PRN; Protocol PRN Reason: Hypoglycemia Protocol Stop: 04/21/20 20:01 Glucose (Glucose 10 Tabs/Tube) 4 - 8 tabs PO UD PRN; Protocol PRN Reason: Hypoglycemia Protocol Stop: 04/21/20 20:01 Glucose (Glucose 40% Gel 15 Gm Tube) 15 - 30 gm PO UD PRN; Protocol PRN Reason: Hypoglycemia Protocol Stop: 04/21/20 20:01 Heparin Sodium (Porcine) (Heparin Sod 5,000 Unit/0.5 Ml Vial) 5,000 units SQ Q12 ABNER Stop: 04/21/20 20:59 Last Admin: 04/02/20 20:38 Dose: 5,000 units Documented by: Insulin Aspart (Insulin Aspart 100 Units/Ml 3 Ml Pen) 0 units SC AC ABNER Stop: 05/02/20 07:29 Last Admin: 04/02/20 17:45 Dose: 5 units Documented by: Magnesium Hydroxide (Magnesium Hydroxide Susp 30 Ml Udc) 30 ml PO Q6H PRN PRN Reason: Constipation Stop: 04/21/20 20:01 Last Admin: 04/01/20 12:53 Dose: 30 ml Documented by: Menthol (Cough Drop (Sugar Free) Anthony 24 Anthony/1 Box) 1 anthony BUCCAL Q1H PRN PRN Reason: THROAT IRRITATION Stop: 04/25/20 16:40 Last Admin: 03/28/20 14:47 Dose: 1 anthony Documented by: Miscellaneous (Carbohydrates For Hypoglycemia ) 15 - 30 gm PO UD PRN PRN Reason: Hypoglycemia Protocol Stop: 04/21/20 20:01 Last Admin: 04/02/20 07:22 Dose: 30 gm Documented by: Multi-Ingredient Cream (Eucerin Cr 120 Gm Jar) 1 appln EXT QID [facility] Stop: 04/28/20 20:59 Last Admin: 04/02/20 20:37 Dose: 1 appln Documented by: Ondansetron HCl (Ondansetron Inj 2 Mg/Ml 2 Ml Vial) 4 mg IV Q6H PRN PRN Reason: Nausea Stop: 04/21/20 20:01 Simvastatin (Simvastatin 40 Mg Tab) 40 mg PO QPM [facility] Stop: 04/21/20 20:59 Last Admin: 04/02/20 20:37 Dose: 40 mg Documented by: Vitamin D (Cholecalciferol 1,000 Units 25 Mcg Tab) 1,000 units PO DAILY [facility] Stop: 04/22/20 08:59 Last Admin: 04/02/20 09:21 Dose: 1,000 units Documented by: Resident Activity Tracking Resident Involvement: Resident Care Provided Care Provided: Adult Hospital Medicine
[2020-04-03] MEDS: CHOLECALCIFEROL 1,000 UNITS 25 MCG TAB PO SCH (07:51)
[2020-04-03] MEDS: HEPARIN SOD 5,000 UNIT/0.5 ML VIAL SQ SCH ×2 (07:51→21:30)
[2020-04-03] MEDS: EUCERIN CR 120 GM JAR EXT SCH ×4 (07:52→21:31)
[2020-04-03] MEDS: ASPIRIN 81 MG ECTAB PO SCH (07:52)
[2020-04-03] MEDS: INSULIN ASPART 100 UNITS/ML 3 ML PEN SC SCH ×3 (08:31→18:09)
[2020-04-03] MEDS: ACETAMINOPHEN 325 MG TAB PO PRN (10:46)
--- NOTE | 2020-04-03 13:47 | XRay Report ---
KUB HISTORY: Generalized abdominal pain. COMPARISON: None. FINDINGS: Vascular calcifications are noted. Multiple dilated gas-filled loops of large and small bow el are seen throughout the abdomen. There is a large amount of well-formed stool seen throughout the colon and rectum. This includes a 9.6 cm rectal stool ball. The cecum is distended up to 11 cm. The s mall bowel is distended up to 4.4 cm. No renal calculi. No ureteral calculi. No pneumoperitoneum or pneumatosis. IMPRESSION: 1. Multiple dilated gas-filled loops of large and small bowel seen throughout the abdomen. This favor s an ileus. 2. Large amount of well-formed stool seen throughout the colon and rectum consistent with constipatio n. This includes a 9.6 cm rectal stool ball. Consider disimpaction. ACT 112: Negative or not required by law. Electronically signed by: Nasim Kamara M.D. 04/03/2020 1:45 PM
[2020-04-03] MEDS ORDERED: POLYETHYLENE (MIRALAX) 17 GM PACK PO ONE (14:30)
[2020-04-03] MEDS: SIMVASTATIN 40 MG TAB PO SCH (21:30)
[2020-04-03] MEDS: bisacodyL 10 MG SUPP PR SCH (21:31)
[2020-04-03] MEDS: POLYETHYLENE (MIRALAX) 17 GM PACK PO SCH (21:31)
--- NOTE | 2020-04-04 07:30 | Hospitalist Progress Note ---
Date of Service April 04, 2020 Assessment & Plan (1) AMS (altered mental status): Gregor Cash is a 79yo male with a PMH of DM2, HTN, HLD, and vascular dementia who presented with confusion. Waiting placement, but currently being worked up for dyspnea and new O2 requirement, likely 2/2 aspiration? pneumonia. Condition is fair, stable. Acute respiratory failure in setting of underlying severe emphysema - required 3-4 L since 04/03/20. not on O2 at home - per chest imaging, hx of severe emphysema - cxr ordered this AM after noting SOB and O2 requirement. shows bibasilar consolidation suggestive of pneumonia. aspiration pneumonia would be supported by background of the abdominal distension->increased risk of aspiration given patient position in bed. atelectasis on differential given that patient has had abdominal bloating/ileus/constipation and has been in bed most of the past 2 weeks. less likely post-obstructive pneumonia because of small size of the lung nodules. leukocytosis 20.57 compared to 9.6 on 04/02/20. neg procalc 0.14 and no fever, - given overall context, will treat empirically w/ abx. Started IV rocephin and IV Flagyl (for anaerobic coverage). - sputum culture ordered - duoneb switched from prn to q4h - on PM recheck, patient is subjectively better than AM, objectively about same vs slightly better (+labored breathing when talking. lungs CTAB posteriorly.) ileus w/ large stool burden - distended/firm abdomen since 04/03/20, slightly softer 04/04/20. KUB showed large stool burden patient was started on constipation regimen. Ideally patient would benefit most from an enema, however per nursing he refused. - 04/04/20 repeat KUB ordered to see if stool burden has decreased. unable to determine that vs ileus from exam alone. repeat KUB showed moderate stool burden vs large stool burden from day prior. -MiraLAX 17 g twice daily -Docusate at bedtime - 04/04/20 patient passed 4-5 moderate mushy BMs w/ 1 large BM during day. Added Senna. Goals of care discussion -attending participated in discussion with patient 03/26/20 -regarding his health, patient believes that his cancer is untreatable (via anecdotal experiences), so he does not see the benefit of treatment -palliative care discussion ongoing - pending placement Delirum sec to ? UTI with underlying worsening dementia -baseline cognitive dysfunction. -CT head negative for acute bleed, CXR negative for findings suspicious of infection but with incidental nodules found -MRI brain notable for microangiopathic disease, negative for metastatic disease -speech therapy consult 03/26/20: severe cognitive deficits in executive function and short term recall with poor insight -Office of Aging involved Groin mass -newly discovered as of 03/25/20, but based on size and appearance, likely has been present for a long time -not in previously documented records -patient has refused workup or physical exam/evaluation UTI (resolved) -UA with nitrites, 2+ blood, 1+ leuk esterase, WBC>30, hyaline casts, 4+ bacteria -culture growing gram negative bacilli; pansensitive E coli -hemodynamically stable and afebrile -WBC wnl; discontinuing ceftriaxone Lung nodules -incidental finding on CXR -CT chest: 1.7cm right upper lobe spiculated nodule suspicious for primary bronchogenic pulmonary malignancy -focal density in lateral aspect of right middle lobe 4.7x1.2cm and 1.4cm cystic nodule in right lower lobe -60+ pack year smoking history -ROS per pulmonology positive for unintentional weight loss and ongoing cough -patient reports he does not want further workup for potential cancer (see pulmonology note for further details of discussion) -patient does not want further workup or treatment DM2 -A1c 7.7 on admission -BSG premeal and qhs -holding metformin -c/w glargine 10u sq qhs, ISS OPAL: resolved HLD -continue simvastatin HTN -holding home lisinopril FENGI: diabetic diet, low sodium, clear liquid diet since 04/04/20 because of ileus DVT ppx: heparin 5000u sq qd Code status: DNR/DNI Dispo: med/surg, discharge pending placement (2) Diabetes type 2, uncontrolled: (3) Forgetfulness: (4) Left groin mass: (5) Acute kidney injury: (6) Dyslipidemia: (7) Goals of care, counseling/discussion: (8) Lung nodule, multiple: (9) Dyspnea: Admission and Anticipated Discharge Date Admission Date: March 22, 2020 Supervising Physician Co-Signing Physician Notes Resident Physician Supervision Note: I independently interviewed and examined the patient and verified the iglesias history and physical, reviewed labs and image studies, discussed the case with the resident Dr. Orta and agree with the findings and care plan. Subjective Had some sob this AM, slightly better on recheck. Denies pain. 4L O2. Had small amount of mushy stool this AM. States abdomen is less distended than yesterday. Denies home O2 use. PM recheck: per nursing, no further exacerbations of breathing during day. Patient states he is comfortable when not having exacerbations and that his breathing feels better than in the morning. Review of Systems Review of Systems: Constitutional: Denies fever. + chills (states heater turned off) Eyes: Denies blurry vision Cardiovascular: Denies chest pain, Respiratory: mild sob Gastrointestinal: no current abd pain Genitourinary: Denies urinary symptoms including dysuria Neurological: Denies headache, numbness, tingling, focal weakness Physical Exam Physical Exam: General: Grossly A&O. NAD. Cooperative. HEENT: Atraumatic, normocephalic. EOMI Pulm: some accessory muscle use. lungs mostly clear. some exp pitch on left Cardiac: RRR, -mrg. Radial pulses intact and symmetrical. 2+ edema Abdominal: feels bloated/moderately firm. no tenderness. : loose stool noted on bedpad Results & Data Results & Data ([facility]) Vital Signs (Past 12 Hours) Vital Signs Temp Pulse Resp BP Pulse Ox 04/04/20 07:02 36.3 C L 93 H 16 161/94 H 90 04/04/20 00:10 36.4 C L 100 H 18 153/95 H 96 Resident Activity Tracking Resident Involvement: Resident Care Provided Care Provided: Adult Hospital Medicine
[2020-04-04] MEDS: EUCERIN CR 120 GM JAR EXT SCH ×4 (08:40→21:07)
[2020-04-04] MEDS: ASPIRIN 81 MG ECTAB PO SCH (08:40)
[2020-04-04] MEDS: CHOLECALCIFEROL 1,000 UNITS 25 MCG TAB PO SCH (08:40)
[2020-04-04] MEDS: POLYETHYLENE (MIRALAX) 17 GM PACK PO SCH ×2 (08:41→21:08)
[2020-04-04] MEDS: HEPARIN SOD 5,000 UNIT/0.5 ML VIAL SQ SCH ×2 (08:41→21:07)
--- NOTE | 2020-04-04 09:45 | XRay Report ---
XR chest 1V portable CLINICAL HISTORY: Shortness of breath. COMPARISON STUDY: Chest radiograph and chest CT March 22, 2020 FINDINGS: Multiple gas-filled loops of bowel are noted within visualized portions of the upper abdome n as shown on KUB of April 03, 2020. Cardiomediastinal silhouette is normal. There is a trace right pleural effusion. There is severe emphysema. The suspicious right upper lobe nodule on chest CT of D 2019 is not well visualized on this exam due to technique. There has been interval develo pment of left basilar consolidation and right basilar airspace opacity. There is mild interstitial th ickening. No pneumothorax. IMPRESSION: 1. Interval development of bibasilar consolidation consistent with pneumonia. 2. Severe emphysema. 3. Suspicious right upper lobe nodule on chest CT of March 22, 2020 not well depicted on this exam due to radiographic technique. 4. Multiple loops of dilated bowel within visualized portions of the upper abdomen, better depicted o n KUB of April 03, 2020. ACT 112: Negative or not required by law. Electronically signed by: Byron Perales M.D. 04/04/2020 9:43 AM
[2020-04-04] MEDS: INSULIN ASPART 100 UNITS/ML 3 ML PEN SC SCH ×3 (10:01→18:07)
--- NOTE | 2020-04-04 10:01 | Palliative Care Progress Note ---
Date of Service April 04, 2020 Assessment & Plan (1) Abdominal pain: Extensive stool on KUB. Pain improved with miralax which has been effective. (2) Palliative care encounter: Presumed lung cancer in gentleman who has declined further workup or treatment. He is awaiting placement. Palliative care will follow peripherally. Admission and Anticipated Discharge Date Admission Date: March 22, 2020 Subjective Denies abdominal pain today. Multiple BMs with miralax. Review of Systems Review of Systems: [place] Symptom Assessment Scale Pain 0/3 Dyspnea 0/3 Drowsiness 0/3 Anorexia 2/3 Nausea 0/3 Fatigue 2/3 Palliative Performance Score 40% Physical Exam Constitutional: + cachectic temporal wasting ENMT: Mouth: + dry oral mucous membranes Respiratory: normal respiratory effort; no labored breathing Gastrointestinal (Abdomen): Inspection/Auscultation: + abdomen distended Percussion/Palpation: abdomen nontender Musculoskeletal: Extremities: + muscle atrophy Results & Data ([facility]) Vital Signs (Past 12 Hours) Vital Signs Temp Pulse Resp BP Pulse Ox 04/04/20 07:02 97.3 F L 93 H 16 161/94 H 90 04/04/20 00:10 97.5 F L 100 H 18 153/95 H 96 PG Care Time/CCT Total # of Minutes Spent Total Time Spent with Patient: Total time spent is greater than 50% in coordination of care (as documented) at patient's floor/unit and/or counseling patient Coding Level of Care Code 92069 Subseq Hosp Care Lvl 2 Diagnoses Abdominal pain R10.9 Palliative care encounter Z51.5
--- NOTE | 2020-04-04 11:06 | XRay Report ---
XR KUB/Abdomen 1 view CLINICAL HISTORY: evaluate stool burden COMPARISON STUDY: 04/03/2020 FINDINGS: There is gaseous prominence of both large and small bowel loops. There is moderate colonic stool. Stool within the rectum measures 10 cm transversely. IMPRESSION: 1. Persistent gaseous distention of both large and small bowel loops. The pattern favors an ileus. 2. Moderate fecal load. ACT 112: Negative or not required by law. Electronically signed by: Osmani Long M.D. 04/04/2020 11:05 AM
[2020-04-04 11:07] LABS: Basophils # (auto) 0.02 K/uL (0-0.2); Basophils % (auto) 0.1 %; Eosinophils # (auto) 0.01 K/uL (0-0.5); Hematocrit (blood only) 39.5 % (42-52); Hemoglobin 12.7 g/dL (14.0-18.0); Immature Granulocytes # (auto) 0.07 K/uL (0.00-0.02); Immature Granulocytes % (auto) 0.3 %; Lymphocytes # (auto) 0.48 K/uL (1.2-3.4); Lymphocytes % (auto) 2.3 %; Mean Corpuscular Hemoglobin 32.6 pg (25-34); Mean Corpuscular Hgb Conc 32.2 g/dL (32-36); Mean Corpuscular Volume 101.5 fL (80-100); Mean Platelet Volume 9.8 fL (7.4-10.4); Monocytes # (auto) 0.79 K/uL (0.11-0.59); Monocytes % (auto) 3.8 %; Neutrophils % (auto) 93.5 %; Platelet Count 312 K/uL (130-400); RDW Coefficient of Variation 16.3 % (11.5-14.5); RDW Standard Deviation 58.4 fL (36.4-46.3); Red Blood Count 3.89 M/uL (4.7-6.1); White Blood Count 20.57 K/uL (4.8-10.8)
[2020-04-04 11:34] LABS: BUN Creatinine Ratio 41.2 (10-20); Calcium 8.3 mg/dl (8.5-10.1); Creatinine Clr Calc Pharmacy 55.2 ml/min; Est GFR (African American) 97.2; Est GFR (Non-African American) 83.9; Potassium 3.9 mmol/L (3.5-5.1)
[2020-04-04] MEDS: ALBUT/IPRATROP 3MG/0.5MG NEB 3 ML VIAL NEB SCH ×4 (12:07→23:32)
[2020-04-04] MEDS: cefTRIAXone SODIUM 1,000 MG in DEXTROSE 5% 50 ML IV SCH (13:53)
[2020-04-04] MEDS: metroNIDAZOLE 500 MG/100 ML BAG IV SCH ×2 (15:24→21:06)
[2020-04-04] MEDS: SENNA 8.6 MG TAB PO SCH (16:28)
[2020-04-04] MEDS: SIMVASTATIN 40 MG TAB PO SCH (21:07)
[2020-04-04] MEDS: bisacodyL 10 MG SUPP PR SCH (21:14)
[2020-04-05] MEDS: ALBUT/IPRATROP 3MG/0.5MG NEB 3 ML VIAL NEB SCH ×6 (03:44→23:05)
[2020-04-05] MEDS: metroNIDAZOLE 500 MG/100 ML BAG IV SCH ×3 (05:00→19:43)
--- NOTE | 2020-04-05 06:59 | Hospitalist Progress Note ---
Date of Service April 05, 2020 Assessment & Plan (1) AMS (altered mental status): Gregor Cash is a 79yo male with a PMH of DM2, HTN, HLD, and vascular dementia who presented with confusion. Waiting placement, but currently being worked up for dyspnea and new O2 requirement, likely 2/2 aspiration? pneumonia. Condition is fair, stable. Tentative dispo to [facility] 04/06/20. Acute respiratory failure in setting of underlying severe emphysema - required 3-4 L since 04/03/20. not on O2 at home - per chest imaging, hx of severe emphysema - cxr ordered this AM after noting SOB and O2 requirement. shows bibasilar consolidation suggestive of pneumonia. aspiration pneumonia would be supported by background of the abdominal distension->increased risk of aspiration given patient position in bed. atelectasis on differential given that patient has had abdominal bloating/ileus/constipation and has been in bed most of the past 2 weeks. less likely post-obstructive pneumonia because of small size of the lung nodules. leukocytosis 20.57 compared to 9.6 on 04/02/20. neg procalc 0.14 and no fever, - given overall context, will treat empirically w/ abx. Started IV rocephin and IV Flagyl (for anaerobic coverage). - sputum culture ordered - duoneb switched from prn to q4h - 04/05/20 PM weaned off nasal cannula. satting 93-96. respiratory status much improved. Breathing appears less labored. Patient is more comfortable. IV abx continued. ileus w/ large stool burden - distended/firm abdomen. KUB showed large stool burden patient was started on constipation regimen. Ideally patient would benefit most from an enema, however per nursing he refused. -MiraLAX 17 g twice daily -Docusate at bedtime - 04/04/20 patient passed 4-5 moderate mushy BMs w/ 1 large BM during day. Added Senna. Goals of care discussion -attending participated in discussion with patient 03/26/20 -regarding his health, patient believes that his cancer is untreatable (via anecdotal experiences), so he does not see the benefit of treatment -palliative care discussion ongoing - pending placement. 04/05 insurance approved for [facility]. tentative dispo 04/06/20. - in d/c summary, will mention importance of continuing goals of care discussion at facility Delirium sec to ? UTI with underlying worsening dementia -baseline cognitive dysfunction. -CT head negative for acute bleed, CXR negative for findings suspicious of infection but with incidental nodules found -MRI brain notable for microangiopathic disease, negative for metastatic disease -speech therapy consult 03/26/20: severe cognitive deficits in executive function and short term recall with poor insight -Office of Aging involved Groin mass -newly discovered as of 03/25/20, but based on size and appearance, likely has been present for a long time -not in previously documented records -patient has refused workup or physical exam/evaluation UTI (resolved) -UA with nitrites, 2+ blood, 1+ leuk esterase, WBC>30, hyaline casts, 4+ bacteria -culture growing gram negative bacilli; pansensitive E coli -hemodynamically stable and afebrile -WBC wnl; discontinuing ceftriaxone Lung nodules -incidental finding on CXR -CT chest: 1.7cm right upper lobe spiculated nodule suspicious for primary bronchogenic pulmonary malignancy -focal density in lateral aspect of right middle lobe 4.7x1.2cm and 1.4cm cystic nodule in right lower lobe -60+ pack year smoking history -ROS per pulmonology positive for unintentional weight loss and ongoing cough -patient reports he does not want further workup for potential cancer (see pulmonology note for further details of discussion) -patient does not want further workup or treatment DM2 -A1c 7.7 on admission -BSG premeal and qhs -holding metformin -c/w glargine 10u sq qhs, ISS OPAL: resolved - Cr 0.72, egfr 83.9 as of 04/05 HLD -continue simvastatin HTN -holding home lisinopril. will restart upon dispo FENGI: diabetic diet, low sodium, clear liquid diet since 04/04/20 because of ileus. not on maintenance IVF DVT ppx: heparin 5000u sq qd Code status: DNR/DNI Dispo: med/surg, tentative dispo to [facility] 04/06/20 (2) Diabetes type 2, uncontrolled: (3) Forgetfulness: (4) Left groin mass: (5) Acute kidney injury: (6) Dyslipidemia: (7) Goals of care, counseling/discussion: (8) Lung nodule, multiple: (9) Dyspnea: Admission and Anticipated Discharge Date Admission Date: March 22, 2020 Supervising Physician Co-Signing Physician Notes Resident Physician Supervision Note: I independently interviewed and examined the patient and verified the iglesias history and physical, reviewed labs and image studies, discussed the case with the resident Dr. Orta and agree with the findings and care plan. Subjective On 1L nasal cannula this AM. Occasional shortness of breath, but none currently. He unsure if feels better than yesterday. Per nursing, doing well overnight w/o acute events. frequent loose bowel movement. Review of Systems Review of Systems: Constitutional: No fever or chills Cardiovascular: Denies chest pain Respiratory: Denies shortness of breath Gastrointestinal: Denies abdominal pain Physical Exam Physical Exam: General: NAD. Cooperative. HEENT: Atraumatic, normocephalic. Pulm: CTAB. -wheezes, -rales, -rhonchi. slightly diminished. No respiratory distress. Cardiac: RRR, -mrg. Abdominal: Mild distension. Moderately firm, improved from yesterday. No tenderness to palpation. Results & Data Results & Data ([facility]) Vital Signs (Past 12 Hours) Vital Signs Temp Pulse Resp BP Pulse Ox 04/05/20 03:44 82 18 97 04/04/20 23:33 77 18 98 04/04/20 23:16 36.4 C L 77 14 147/70 H 96 04/04/20 20:12 78 18 98 Resident Activity Tracking Resident Involvement: Resident Care Provided Care Provided: Adult Hospital Medicine
[2020-04-05 07:05] LABS: Basophils # (auto) 0.02 K/uL (0-0.2); Basophils % (auto) 0.2 %; Eosinophils # (auto) 0.05 K/uL (0-0.5); Eosinophils % (auto) 0.5 %; Hematocrit (blood only) 35.7 % (42-52); Hemoglobin 11.4 g/dL (14.0-18.0); Immature Granulocytes # (auto) 0.04 K/uL (0.00-0.02); Immature Granulocytes % (auto) 0.4 %; Lymphocytes # (auto) 0.46 K/uL (1.2-3.4); Lymphocytes % (auto) 4.5 %; Mean Corpuscular Hemoglobin 32.6 pg (25-34); Mean Corpuscular Hgb Conc 31.9 g/dL (32-36); Mean Platelet Volume 10.3 fL (7.4-10.4); Monocytes # (auto) 0.72 K/uL (0.11-0.59); Monocytes % (auto) 7.1 %; Neutrophils # (auto) 8.83 K/uL (1.4-6.5); Neutrophils % (auto) 87.3 %; Platelet Count 321 K/uL (130-400); RDW Coefficient of Variation 16.4 % (11.5-14.5); RDW Standard Deviation 59.2 fL (36.4-46.3); White Blood Count 10.12 K/uL (4.8-10.8)
[2020-04-05 07:29] LABS: BUN Creatinine Ratio 34.3 (10-20); Calcium 8.3 mg/dl (8.5-10.1); Creatinine Clr Calc Pharmacy 64.3 ml/min; Est GFR (African American) 103.6; Est GFR (Non-African American) 89.3; Potassium 3.8 mmol/L (3.5-5.1)
[2020-04-05 07:32] LABS: Albumin Globulin Ratio 0.6 (0.9-2); Bilirubin,Total 0.3 mg/dl (0.2-1); Globulin 3.1 gm/dl (2.5-4.0); Total Protein 5.1 gm/dl (6.4-8.2)
[2020-04-05] MEDS: INSULIN ASPART 100 UNITS/ML 3 ML PEN SC SCH ×3 (09:07→17:58)
[2020-04-05] MEDS: SENNA 8.6 MG TAB PO SCH (09:17)
[2020-04-05] MEDS: EUCERIN CR 120 GM JAR EXT SCH ×4 (09:17→19:44)
[2020-04-05] MEDS: ASPIRIN 81 MG ECTAB PO SCH (09:17)
[2020-04-05] MEDS: CHOLECALCIFEROL 1,000 UNITS 25 MCG TAB PO SCH (09:17)
[2020-04-05] MEDS: POLYETHYLENE (MIRALAX) 17 GM PACK PO SCH ×2 (09:18→19:44)
[2020-04-05] MEDS: HEPARIN SOD 5,000 UNIT/0.5 ML VIAL SQ SCH ×2 (09:18→19:44)
[2020-04-05] MEDS: cefTRIAXone SODIUM 1,000 MG in DEXTROSE 5% 50 ML IV SCH (13:18)
[2020-04-05] MEDS: SIMVASTATIN 40 MG TAB PO SCH (19:43)
[2020-04-05] MEDS: bisacodyL 10 MG SUPP PR SCH (19:44)
[2020-04-06] MEDS: ALBUT/IPRATROP 3MG/0.5MG NEB 3 ML VIAL NEB SCH ×2 (03:04→07:16)
[2020-04-06] MEDS: metroNIDAZOLE 500 MG/100 ML BAG IV SCH (05:08)
[2020-04-06 06:35] LABS: Hematocrit (blood only) 33.5 % (42-52); Hemoglobin 11.1 g/dL (14.0-18.0); Mean Corpuscular Hemoglobin 32.9 pg (25-34); Mean Corpuscular Hgb Conc 33.1 g/dL (32-36); Mean Corpuscular Volume 99.4 fL (80-100); Mean Platelet Volume 9.8 fL (7.4-10.4); Platelet Count 294 K/uL (130-400); RDW Coefficient of Variation 16.7 % (11.5-14.5); RDW Standard Deviation 59.5 fL (36.4-46.3); Red Blood Count 3.37 M/uL (4.7-6.1); White Blood Count 6.89 K/uL (4.8-10.8)
[2020-04-06] MEDS: ASPIRIN 81 MG ECTAB PO SCH (08:13)
[2020-04-06] MEDS: HEPARIN SOD 5,000 UNIT/0.5 ML VIAL SQ SCH (08:14)
[2020-04-06] MEDS: EUCERIN CR 120 GM JAR EXT SCH (08:16)
[2020-04-06] MEDS: POLYETHYLENE (MIRALAX) 17 GM PACK PO SCH (08:16)
[2020-04-06] MEDS: SENNA 8.6 MG TAB PO SCH (08:16)
[2020-04-06] MEDS: CHOLECALCIFEROL 1,000 UNITS 25 MCG TAB PO SCH (08:17)
[2020-04-06] MEDS: INSULIN ASPART 100 UNITS/ML 3 ML PEN SC SCH (09:01)
[2020-04-06] MEDS ORDERED: ALBUT/IPRATROP 3MG/0.5MG NEB 3 ML VIAL NEB PRN (09:31)
[2020-04-06] MEDS ORDERED: CEFDINIR 300 MG CAP PO SCH (09:45)
[2020-04-06] MEDS ORDERED: metroNIDAZOLE 500 MG TAB PO SCH ×2 (13:00→14:00)
--- NOTE | 2020-04-06 16:31 | Discharge Summary ---
Date of Service April 06, 2020 Admission HPI Per Admitting Provider The patient is a 71-year-old male with a past medical history including uncontrolled diabetes mellitus type 2, anemia, depression, diabetes mellitus with neurologic manifestations, diabetes mellitus with renal manifestations, diabetic retinopathy, dyslipidemia, hypertension, memory loss, nicotine dependence, vascular dementia and vitamin D deficiency. The patient had been to an office appointment, was found to be confused by staff there, EMS was called, and then brought the patient to the ER after family was contacted. The patient himself does not have any complaints as far as why he is in the hospital. Raji reynolds notes that the patient had gotten lost last week. Admission Exam Per Admitting Provider Chief Complaint: The patient presents to the emergency department due to altered mental status. Primary Care Provider: NO PCP The patient is a 71-year-old male with a past medical history including uncontrolled diabetes mellitus type 2, anemia, depression, diabetes mellitus with neurologic manifestations, diabetes mellitus with renal manifestations, diabetic retinopathy, dyslipidemia, hypertension, memory loss, nicotine depende nce, vascular dementia and vitamin D deficiency. The patient had been to an office appointment, was found to be confused by staff there, EMS was called, and then brought the patient to the ER after family was contacted. The patient himself does not have any complaints as far as why he is in the hospital. Family notes that the patient had gotten lost last week. Principal Diagnosis AMS, dementia, lung mass, aspiration pneumonia Discharge Exam General: alert and oriented to person, month, location (hospital), but not context. no acute distress. conversational. HEENT: Atraumatic, normocephalic. Pulm: Mild left exp wheezes. good air movement. No respiratory distress on room air. Cardiac: RRR, -mrg. Abdominal: Nontender, nondistended, soft. Discharge Data Allergies Allergy/AdvReac Type Severity Reaction Status Date / Time No Known Allergies Allergy Verified 03/22/20 14:39 Consultations 03/22/20 15:54 ED Decision to Admit Stat 03/22/20 20:02 Consult Case Management - Discharge Planning Routine 03/23/20 12:54 Consult Pulmonology Routine 03/23/20 20:59 Consult Case Management - Discharge Planning Routine 03/26/20 18:01 Consult Palliative Care Routine Ordered Studies 03/22/20 12:35 CT head/brain wo con Stat 03/22/20 14:53 CT chest diagnostic wo con Stat 03/23/20 15:17 MR brain wo/w con Routine Hospital Course (1) AMS (altered mental status): Gregor Cash is a 79yo male with a PMH of DM2, HTN, HLD, and vascular dementia who presented to [facility] on 03/22/20 with confusion. He was subsequently found to have lung nodules and a groin mass, but refused further workup. The admission was also complicated by ileus, transient new O2 requirement, (likely 2/2 aspiration pneumonia, resolved after improvement of abd distention and empiric abx). Dispo to [facility] on 04/05/20. delirium w/ underlying worsening dementia - Mr. Cash has baseline cognitive dysfunction. dx'd w/ vascular dementia in past. head CT this admission negative for acute bleed. MRI brain notable for microangiopathic disease, negative for metastatic disease - speech therapy consult 03/26/20: severe cognitive deficits in executive function and short term recall with poor insight - patient is alert and oriented 1-3, depending on day. Some days, he would answer with "oh, I don't know" such as when asked the date. He was alert to person, month, and location, but not context on day of dispo (04/05/20) - throughout the course of 2 weeks, there was some progression in the patient's level of confusion. During the latter part of the admission, patient had more questions during the morning interviews and expressed that he didn't understand why he was receiving certain treatments despite attempted explanations. This may be potentially attributed to hospital delirium. Of note, patient's mentation did not improve after UTI treatment nor after aspiration pneumonia empiric antibiotics - office of aging already previously involved Goals of care discussion -multiple discussions w/ patient and patient's daughter (via phone) -regarding his health, patient believes that his cancer is untreatable (via anecdotal experiences), so he does not see the benefit of treatment. patient's daughter wants to respect his wishes -palliative care consulted near beginning of admission. At the time of 03/27/20 eval, patient had capacity. However, patient's confusion increased towards end of admission. - it is important to continue goals of care discussion at SNF or future destinations. As per below, he has likely lung malignancy and a large groin mass that he refuses workup for. His confusion seems to be increasing, which may be due to worsening dementia and/or transient delirium. Daughter is concerned about patient's ability to care for self. PT/OT recommended SNF or 24 hour care. As of day of dispo 04/06/20, patient not safe for going home independently, hence the transfer to SNF. Acute respiratory failure (on 04/03/20) in setting of underlying severe emphysema - required 3-4 L since 04/03/20. not on O2 at home. - per chest imaging, hx of severe emphysema. hx tobacco use. - cxr ordered after noting SOB and O2 requirement. shows bibasilar consolidation suggestive of pneumonia. aspiration pneumonia would be supported by background of the abdominal distension->increased risk of aspiration given patient position in bed. atelectasis on differential given that patient has had abdominal bloating/ileus/constipation and has been in bed most of the past 2 weeks. less likely post-obstructive pneumonia because of small size of the lung nodules. leukocytosis 20.57 compared to 9.6 on 04/02/20. neg procalc 0.14 and no fever, - given overall context, treated empirically w/ abx. Started IV rocephin and IV Flagyl (for anaerobic coverage). - 04/05/20 PM weaned off nasal cannula. satting 93-96. respiratory status much improved. leukocytosis resolved - on dispo, prescribed Cefdinir 300mg PO BID and Flagyl 500mg PO TID for 5 more days (for total of 7 day treatment course of presumed (no sputum culture ordered) aspiration pneumonia). ileus w/ large stool burden, - distended/firm abdomen onset ~04/03/20. KUB showed large stool burden patient was started on constipation regimen. Ideally patient would benefit most from an enema, however per nursing he refused. - MiraLAX 17 g twice daily. Docusate at bedtime. 04/04/20 patient passed 4-5 moderate mushy BMs w/ 1 large BM during day. Added Senna. - temporary clear liquid diet for bowel rest. advanced to regular diet upon dispo - Abdomen distension ~resolved and abd soft and nontender on day of dispo. continue bowel regimen. likely still has ileus, so avoid narcotic medications. Groin mass - newly discovered as of 03/25/20, but based on size and appearance, likely has been present for a long time - not in previously documented records - patient has refused workup or physical exam/evaluation Lung nodules -incidental finding on CXR -CT chest: 1.7cm right upper lobe spiculated nodule suspicious for primary bronchogenic pulmonary malignancy -focal density in lateral aspect of right middle lobe 4.7x1.2cm and 1.4cm cystic nodule in right lower lobe -60+ pack year smoking history -ROS per pulmonology positive for unintentional weight loss and ongoing cough -patient reports he does not want further workup for potential cancer UTI (resolved) - UA with nitrites, 2+ blood, 1+ leuk esterase, WBC>30, hyaline casts, 4+ bact eria - culture grew gram negative bacilli; pansensitive E coli - tx'd w/ IV ceftriaxone DM2 - A1c 7.7 on admission - continue home regimen OPAL: resolved - Cr 0.72, egfr 83.9 as of 04/05 HLD - continue simvastatin HTN - restart home lisinopril Code status: DNR/DNI (2) Diabetes type 2, uncontrolled: (3) Forgetfulness: (4) Left groin mass: (5) Acute kidney injury: (6) Dyslipidemia: (7) Goals of care, counseling/discussion: (8) Lung nodule, multiple: (9) Dyspnea: Total Time Total Time Spent Total Time Spent (In Minutes): Please see attending documentation. Discharge Plan Discharge Items Patient Disposition: Transfer [facility] Fac Reason For Visit: ALTERED MENTAL STATUS Discharge Diagnosis: AMS, Dementia, UTI, Lung mass, Aspiration Pneumonia Activity: Per Instructions section Non-emergency contact: Primary Care Provider Call non-emergency contact if: you have any medication questions, your pain is not controlled and you have a fever Follow-up/Referrals: PCP,NO [Primary Care Provider] - Diet: Regular Addtl Attending Provider Instructions: You were admitted for altered mental status, dementia. You also were treated for UTI on admission and also aspiration pneumonia for the past 2 days prior to discharge. You will need to continue antibiotics for the aspiration pneumonia with a total course of treatment of 7 days; you have already been treated for 2 of the 7 days, with 5 more days of treatment to complete. These medications are Cefdinir 300mg pill and Flagyl 500mg pill. Cefdinir 300mg pill. Take one pill, twice a day, take in AM and take in PM. You will need to take this medication for 5 more days for a total of 10 doses. Flagyl 500mg pill. Take one pill, three times a day. You can take this medication, one pill with breakfast, lunch and dinner. You will need to take this medication for 5 more days or a total of 15 more doses. You were also found to have a lung mass that is presumed to be malignant, but you declined further care/treatment for this, and we respect your wishes. You will be discharged from the hospital to a rehab facility for ongoing care. You may continue your previous home medications. We wish you the best of luck with your ongoing care. Pending Studies at Discharge: No Stand-Alone Forms: My [facility] Skilled Items Patient informed of condition?: Yes DNR: Yes Discharge Level of Care: Skilled Communicable Disease: No Discharge Prognosis: Stable Lines: None Urinary Catheter: No Medications and DC Order Prescriptions: New metronidazole 500 mg Tablet 500 mg PO TID Qty: 15 RF: 0 cefdinir 300 mg Capsule 300 mg PO BID Qty: 10 RF: 0 Continued aspirin [Adult Aspirin Regimen] 81 mg tablet,delayed release (DR/EC) 81 mg PO DAILY Qty: 30 RF: 2 cholecalciferol (vitamin D3) 1,000 unit capsule 1,000 units PO DAILY Qty: 30 RF: 0 Novolog Flexpen U-100 Insulin 100 unit/mL (3 mL) insulin pen 3 units SQ .COMPLEX Qty: 15 RF: 0 insulin aspart U-100 [Novolog Flexpen U-100 Insulin] 100 unit/mL (3 mL) insulin pen 30 units SQ DAILY 90 Days Qty: 27 RF: 3 simvastatin 40 mg tablet 40 mg PO QPM Qty: 90 RF: 3 lisinopril-hydrochlorothiazide 10-12.5 mg tablet 1 tab PO DAILY Qty: 90 RF: 3 Lantus Solostar U-100 Insulin 100 unit/mL (3 mL) insulin pen See Rx Instructions .ROUTE .COMPLEX RF: 0 Discharge Orders: Discharge Order (Routine); Ordered 04/06/20 Ordered By: Marcello Infante/Other Patient Handouts: What is Delirium?, Who Is at Risk for Delirium? Admission Data Admit Date/Time: 03/22/20 15:18 Attending Provider: Dorina Torres Admit Provider: Terrell Magaña Primary Care Provider: PCP,NO Other Providers: Terrell Magaña ; Mesfin Monsivais ; Guillermina Dale ; Javi Canales ; [facility], ; [facility] ; iDrk Robertson ; Kumar Haines Other Interventions: Discharge Summary Assessment (RN) Last Done: 04/06/20 11:55 Supervising Physician Co-Signing Physician Notes Resident Physician Supervision Note: I independently interviewed and examined the patient and verified the iglesias history and physical, reviewed labs and image studies, discussed the case with the resident Dr. Orta and agree with the findings and care plan. Time spent in discharge 45 min Resident Activity Tracking Resident Involvement: Resident Care Provided Care Provided: Adult Hospital Medicine
== END 2020-04-06 11:56 | DRG 689 ==
LOC: ED 11:47 → SUATTDRO 15:18 → 3N 15:18